=== PATIENT | male | born 1930 | race Caucasian/White ===

== ENCOUNTER 2016-05-01 17:30 | Inpatient (IN) | payer MEDICARE, OTHER ==
[~2016-05-01] VITALS: Ht 167.6 cm; Wt 71.7 kg
[2016-05-01] MEDS ORDERED: ONDANSETRON PF 4 MG/2 ML VIAL. IV ONE (18:00)
[2016-05-01] MEDS: FENTANYL PF 100 MCG/2 ML VIAL. IV PRN ×5 (18:10→23:42)
[2016-05-01] MEDS ORDERED: ACETAMINOPHEN 325 MG TABLET. PO PRN ×2 (18:15→18:45)
[2016-05-01] MEDS ORDERED: ONDANSETRON PF 4 MG/2 ML VIAL. IV PRN ×3 (18:15→20:30)
--- NOTE | 2016-05-01 18:15 | EKG ---
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
--- NOTE | 2016-05-01 18:15 | PHYS DOC ---
Past Medical History Past Medical History: Hypertension Additional Past Medical Histor: Prostate cancer Past Surgical History: Knee Replacement (left) Alcohol Use: None Drug Use: None Adult General Chief Complaint Chief Complaint: MECHANICAL FALL HPI HPI Patient is a 85 year old male who presents with with severe left hip pain after slip and fall on wet floor just prior to arrival, constant, achy, worse with movement. Has only left hip pain. Denies headache, neck pain, chest pain, back pain, abdominal pain, dyspnea, numbness, tingling, weakness, LOC. Last po 1300. Review of Systems Review of Systems Constitutional: Denies fever or chills [] Eyes: Denies change in visual acuity, redness, or eye pain [] HENT: Denies nasal congestion or sore throat [] Respiratory: Denies cough or shortness of breath [] Cardiovascular: No additional information not addressed in HPI [] GI: Denies abdominal pain, nausea, vomiting, bloody stools or diarrhea [] : Denies dysuria or hematuria [] Musculoskeletal: Denies back pain [] Integument: Denies rash or skin lesions [] Neurologic: Denies headache, focal weakness or sensory changes [] Endocrine: Denies polyuria or polydipsia [] Current Medications Current Medications Current Medications Medications (Trade) Dose Ordered Sig/Loly Start Time Stop Time Status Last Admin Dose Admin Fentanyl Citrate (Fentanyl 2ml Vial) 50 mcg PRN Q15MIN PRN 05/01/16 18:00 05/02/16 17:59 05/01/16 18:41 50 MCG Ondansetron HCl (Zofran) 4 mg 1X ONCE 05/01/16 18:00 05/01/16 18:01 DC 05/01/16 18:10 4 MG Allergies Allergies Allergies Coded Allergies Type Severity Reaction Last Updated Verified No Known Drug Allergies 05/01/16 No Physical Exam Physical Exam Constitutional: Well developed, well nourished, no acute distress, non-toxic appearance. [] HENT: Normocephalic, atraumatic, bilateral external ears normal, oropharynx moist, nose normal. [] Eyes: PERRLA, EOMI. [] Neck: Normal range of motion, no tenderness, supple. [] Cardiovascular:Heart rate regular rhythm [] Lungs & Thorax: Bilateral breath sounds clear to auscultation [] Abdomen: Bowel sounds normal, soft, no tenderness. [] Skin: Warm, dry, no erythema, no rash. [] Back: No tenderness, no CVA tenderness. [] Extremities: LLE with obvious swelling to left hip with slight ecchymosis to trochanter area; Hip ROM not tested due to pain and suspected fracture, knee full rom and nontender, ankle df/pf intact and nontender, toes df/pf intact and nontender; sensation intact to light touch; good dp and pt pulses equal bilaterally Neurologic: Alert and oriented X 3, normal motor function, normal sensory function, no focal deficits noted. [] Psychologic: Affect normal, judgement normal, mood normal. [] Current Patient Data Vital Signs Vital Signs Date Time Temp Pulse Resp B/P Pulse Ox O2 Delivery O2 Flow Rate FiO2 05/01/16 17:52 74 21 222/103 100 Room Air 05/01/16 17:30 97.8 97.8 EKG EKG EKG as interpreted by me as normal sinus rhythm, rate 65, no ST-T changes, normal intervals, no ectopy Radiology/Procedures Radiology/Procedures X-ray left hip and pelvis as interpreted by me with left intertrochanteric femur fracture with displacement, normal-appearing pelvis Chest xray as interpreted by me with no acute cardiopulmonary disease process Course & Med Decision Making Course & Med Decision Making Pertinent Labs and Imaging studies reviewed. (See chart for details) Has left hip fracture without other obvious injury or complaint. Was trauma alert due to suspected surgical injury; Dr. Andujar, trauma surgeon, was notified of isolated orthopedic injury. Discussed case with Dr. Moran, orthopedics, who will see him. Discussed case with Dr. Ruth, who will admit. Dragon Disclaimer Dragon Disclaimer This electronic medical record was generated, in whole or in part, using a voice recognition dictation system. Departure Departure Impression: Primary Impression: Closed left femoral fracture Disposition: ADMITTED INPATIENT Condition: STABLE Referrals: ANTOINETTE BABB MD (PCP) Problem Qualifiers Primary Impression: Closed left femoral fracture Encounter type: initial encounter Femur location: intertrochanteric Fracture alignment: displaced Qualified Code: S72.142A - Displaced intertrochanteric fracture of left femur, initial encounter for closed fracture Tatyana FARIAS MD May 01, 2016 18:15
--- NOTE | 2016-05-01 18:38 | PDOC1 ---
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 He was in the carli in the gym, got up, walked for steps and fell on the left side on the ground 2/2 slippery floor. denies loss of consciousness. EMS was called. XR showed left hip fx. independent, no fever, chills, sob, chest pain, N/V. still difficulty to urinate. Past Medical History Cardiovascular: HTN Renal/: Prostate Ca. Past Surgical History Past Surgical History: Total knee replacement Family History Family History: No Significant Social History Smoke: No ALCOHOL: none Drugs: None Current Problem List Problem List Problems Medical Problems: (1) Closed left femoral fracture Status: Acute (2) Femur fracture, left Status: Acute Current Medications Current Medications Current Medications Medications (Trade) Dose Ordered Sig/Loly Start Time Stop Time Status Last Admin Dose Admin Acetaminophen (Tylenol) 650 mg PRN Q4HRS PRN 05/01/16 18:15 05/02/16 18:14 Fentanyl Citrate (Fentanyl 2ml Vial) 50 mcg PRN Q2HR PRN 05/01/16 18:15 05/02/16 18:14 Ondansetron HCl (Zofran) 4 mg PRN Q8HRS PRN 05/01/16 18:15 05/02/16 18:14 Allergies Allergies Allergies Coded Allergies Type Severity Reaction Last Updated Verified No Known Drug Allergies 05/01/16 No ROS Review of System CONSTITUTIONAL: No fever or chills EYES: No recent changes SKIN: No rash or itching CARDIOVASCULAR: No chest pain, syncope, palpitations, or edema RESPIRATORY: No SOB or cough GASTROINTESTINAL: No nausea, vomiting or abdominal pain NEUROLOGICAL: No headaches or weakness ENDOCRINE: No cold or heat intolerance GENITOURINARY: No urgency or frequency of urination MUSCULOSKELETAL: No back pain or joint pain LYMPHATICS: No enlarged lymph nodes PSYCHIATRIC: No anxiety or depression Physical Exam Physical Exam GEN.: No apparent distress. Alert and oriented. HEENT: Head is normocephalic, atraumatic NECK: Supple. LUNGS: Clear to auscultation. HEART: RRR, S1, S2 present. Peripheral pulses intact ABDOMEN: Soft, nontender. Positive bowel sounds. EXTREMITIES: Without any cyanosis. left lower ext outwards rotated. + pedal pulse NEUROLOGIC: Normal speech, normal tone PSYCHIATRIC: Normal affect, normal mood. SKIN: No ulcerations Vitals Vitals Vital Signs Date Time Temp Pulse Resp B/P Pulse Ox O2 Delivery O2 Flow Rate FiO2 05/01/16 18:10 18 Room Air 05/01/16 17:30 97.8 60 195/104 99 97.8 VTE Prophylaxis Ordered VTE Prophylaxis Devices: Yes VTE Pharmacological Prophylaxi: No Assessment/Plan Assessment/Plan 1. traumatic left hip fx post fall 2. htn 3. recent transition nurse post RT plan: 1. labs pending 2. ortho consult, sx tonight 3. need home meds 4. check vitd SW for rehab ptot pain control pt has low risk to develop post op complication, will do it tonight. ELENITA SARAH MD May 01, 2016 18:38
--- NOTE | 2016-05-01 18:57 | ACF ---
Admission Forms Criteria MUSCULOSKELETAL DISEASE GRG Clinical Indications for Admission to Inpatient Care (Place 'X' for any and all applicable criteria): Hospital admission is needed for appropriate care of the patient because of ANY ONE of the following: [X]I. Fracture, dislocation, or other musculoskeletal injury requiring inpatient care(medical) as indicated by ANY ONE of the following(4)(5)(6)(7) [ ]a) Vertebral fracture requiring observation for instability or neurologic compromise (8) [ ]b) Compartment syndrome (proven or cannot be ruled out during observation level of care) (9) [ ]c) Limb-threatening injury [ ]d) Major injury requiring inpatient stabilization such as traction initiation or external fixation before internal fixation or closure of complex or open fracture [X]e) Major injury requiring inpatient treatment after emergency or observation level care (as appropriate) [ ]f) Severe pain requiring acute inpatient management [ ]II. Newly diagnosed or suspected bone, joint, or orthopedic device infection (e.g., osteomyelitis, septic arthritis) needing ANY ONE of the following(1)(2)(3) [ ]a) IV antibiotics that cannot be initiated in other than inpatient setting (e.g., patient too unstable or home infusion not available) [ ]b) Device removal or replacement [ ]c) Bone or soft tissue debridement [ ]d) Joint drainage (drain placement or repetitive aspirations) [ ]III. Severe rheumatologic disease (e.g., systemic lupus erythematosus, rheumatoid arthritis) with complications or comorbidities (Also use Optimal Recovery Care Criteria or General Recovery Criteria as appropriate on the basis of predominant condition), including ANY ONE of the following(10 )(11)(12)(13) [ ]a) Severe infection (e.g., [employer] infection, sepsis) (14) [ ]b) Respiratory complications, including ANY ONE of the following: [ ]i) Pleural effusion with respiratory compromise [ ]ii) Pulmonary hypertension with congestive failure [ ]iii) Respiratory failure [ ]iv) Pulmonary hemorrhage (15) [ ]c) Hematologic disease, including ANY ONE of the following: [ ]i) Coagulopathy with bleeding [ ]ii) Thrombosis with hypercoagulable state [ ]iii) Thrombotic thrombocytopenic purpura [ ]d) Cerebritis with seizures, psychosis, or other severe abnormalities [ ]e) Vertebral destruction with monitoring needed for cervical myelopathy& possible respiratory compromise [ ]f) Exacerbation that requires inpatient treatment (e.g., intravenous immunosuppression) (16) [ ]g) Acute renal failure [ ]IV. Severe vasculitis with complications or comorbidities (Also use Optimal Recovery Care Criteria or General Recovery Criteria as appropriate on the basis of predominant condition), including ANY ONE of the following(11)(12)(17)(18)(19)(20) [ ]a) [employer]ER vasculitis with seizures, psychosis, or other severe abnormalities (22) [ ]b) Renal failure (16) [ ]c) Pulmonary hemorrhage (15) [ ]d) Cerebral infarction [ ]e) Gastrointestinal ischemia [ ]f) Gangrene or threatened amputation [ ]g) Exacerbation that requires inpatient treatment (e.g., intravenous immunosuppression) (19)(21) [ ]V. Severe myopathy as indicated by ANY ONE of the following (28)(29) [ ]a) New onset of airway compromise or inability to swallow [ ]b) Respiratory deterioration with observation needed for impending respiratory failure [ ]c) Exacerbation that requires inpatient treatment (e.g., intravenous immunosuppression) [ ]. Severe gout (crystal arthropathy) as indicated by ANY ONE of the following (23)(24) [ ]a) Severe pain requiring acute inpatient management [ ]b) Exacerbation that requires inpatient treatment (e.g., intravenous treatment) [ ]VII.Rhabdomyolysis and ANY ONE of the following (25)(26)(27) [ ]a) Acute renal failure [ ]b) Need for intravenous hydration after emergency or observation level care (as appropriate) [ ]c) Inability to maintain oral hydration [ ]d) Change in mental status [ ]e) Electrolyte abnormality that remains after emergency or observation level care (as appropriate) [ ]VIII Post amputation complication, as indicated by ANY ONE of the following [ ]a) Infection [ ]b) Dehiscence [ ]c) Myodesis failure [ ]IX. Severe pain requiring acute inpatient management as indicated by ALL of the following (30)(31)(32) [ ]a) Continuous or frequent (e.g., every 2 to 4 hrs) parenteral analgesics required [A] [ ]b) Rapid improvement expected from treatment or acute intervention ( e.g., surgery, anesthesia procedure[B] [ ]X. Musculoskeletal Disease and ALL of the following: [ ]a) Symptom or finding for which emergency and observation care have failed or are not considered appropriate (Use General Criteria: Observation Care as appropriate) [ ]b) Presence of ANY ONE of the following [ ]i) A General Admission Criteria [ ]ii) A Pediatric General Admission Criteria The original [facility] content created by [facility] has been revised. The portions of the content which have been revised are identified through the use of italic text or in bold, and [facility] has neither reviewed nor approved the modified material. All other unmodified content is copyright [facility]. Please see references footnoted in the original [facility] edition 2016 Admission Criteria Met?: Yes BEE GARAY May 01, 2016 18:57
[2016-05-01] MEDS ORDERED: PROPOFOL 20 ML IV ONE (19:01)
[2016-05-01] MEDS ORDERED: PHENYLEPHRINE in 0.9% NACL PF 1 MG/10 ML DISP.SYRIN. IV ONE (19:02)
[2016-05-01] MEDS ORDERED: ONDANSETRON PF 4 MG/2 ML VIAL. ONE (19:02)
[2016-05-01] MEDS ORDERED: LIDOCAINE 2% 100 MG/5 ML DISP.SYRIN. ONE (19:02)
[2016-05-01] MEDS ORDERED: EPHEDRINE PF IN SALINE 50 MG/5 ML DISP.SYRIN. IV ONE (19:02)
[2016-05-01] MEDS ORDERED: DEXAMETHASONE SOD PHOS 20 MG/5 ML VIAL. ONE (19:02)
[2016-05-01 19:03] LABS: BASO % 1 % (0-3); EOS % 1 % (0-3); HEMATOCRIT 33.1 % (39.0-53.0); HEMOGLOBIN 11.5 g/dL (13.0-17.5); LYMPH # 1.3 x10^3/uL (1.0-4.8); LYMPH % 19 % (24-48); MEAN CORPUSCULAR HEMOGLOBIN 34 pg (25-35); MEAN CORPUSCULAR HGB CONC 35 g/dL (31-37); MEAN CORPUSCULAR VOLUME 99 fL (79-100); MONO % 12 % (0-9); NEUT % 68 % (31-73); PLATELET COUNT 166 x10^3/uL (140-400); RED BLOOD COUNT 3.36 x10^6/uL (4.30-5.70); RED CELL DISTRIBUTION WIDTH 13.3 % (11.5-14.5)
[2016-05-01 19:20] LABS: CALCIUM 8.4 mg/dL (8.5-10.1); CREATININE 1.1 mg/dL (0.7-1.3); GFR 63.9; POTASSIUM 4.5 mmol/L (3.5-5.1)
[2016-05-01 19:45] VITALS: BP 171/85
[2016-05-01] MEDS ORDERED: BRIN8DRO OP (19:51)
[2016-05-01] MEDS ORDERED: ASPI81TA2 PO (19:51)
[2016-05-01] MEDS ORDERED: SENN8.6T99 PO (19:51)
[2016-05-01] MEDS ORDERED: LISI-334 AD (19:51)
[2016-05-01] MEDS ORDERED: ESCI10TA PO (19:51)
[2016-05-01] MEDS ORDERED: ATOR40TA59 PO (19:51)
[2016-05-01] MEDS ORDERED: POLY17PO5 PO (19:51)
[2016-05-01] MEDS ORDERED: MIRA50TA PO (19:51)
[2016-05-01] MEDS ORDERED: TIMO5DRO26 OP (19:51)
[2016-05-01] MEDS ORDERED: IV RINGERS,LACTATED 1000ML 1,000 ML IV SCH (20:20)
[2016-05-01] MEDS ORDERED: LIDOCAINE 1% 1 ML SYRINGE. ID PRN (20:30)
[2016-05-01] MEDS ORDERED: HYDROMORPHONE 2 MG/ML VIAL. IV PRN (20:30)
[2016-05-01] MEDS ORDERED: PROCHLORPERAZINE 10 MG/2 ML VIAL. IV PRN (20:30)
[2016-05-01] MEDS ORDERED: FENTANYL PF 100 MCG/2 ML VIAL. IV PRN ×2 (20:30)
[2016-05-01] MEDS ORDERED: ZOLPIDEM 5 MG TABLET. PO PRN (21:15)
[2016-05-01] MEDS ORDERED: CEFAZOLIN 2GM PREMIX 50 ML IV ONE (21:30)
[2016-05-01] MEDS ORDERED: FENTANYL PF 100 MCG/2 ML VIAL. ONE ×2 (21:37→22:25)
[2016-05-01] MEDS ORDERED: SEVOFLURANE 61 TO 120 MINUTES. IH ONE (22:50)
[2016-05-01] MEDS: MORPHINE SULFATE 2 MG/ML DISP.SYRIN. IV PRN (23:52)
[2016-05-02] VITALS (12 sets, daily range): BP systolic 80–121; BP diastolic 49–81
[2016-05-02] MEDS: MORPHINE SULFATE 2 MG/ML DISP.SYRIN. IV PRN (00:08)
--- NOTE | 2016-05-02 04:00 | CONS ---
DATE OF CONSULTATION: 05/01/2016 REQUESTING PHYSICIAN: Dr. Neal Coelho. REASON FOR CONSULTATION: Left hip fracture. HISTORY OF PRESENT ILLNESS: The patient is an 85-year-old male who was at the gym . He was walking down the steps and slipped on a wet slippery floor, landing on his left side, was unable to bear weight or get up due to his left hip pain. He denies any head injury or loss of consciousness, was brought into [facility] by ambulance, found to have a left hip fracture. PAST MEDICAL HISTORY: Significant for prostate cancer and hypertension. PAST SURGICAL HISTORY: Significant for a total knee arthroplasty on the left. FAMILY HISTORY: Denies any significant family history. SOCIAL HISTORY: He is accompanied by some family members today. Previously, independently ambulatory. Denies smoking, alcohol or drug use. REVIEW OF SYSTEMS: Significant for a course of radiation therapy for his prostate cancer, which he just finished. He is also just recovering from a recent total knee arthroplasty and still going through some of the rehabilitation, but is otherwise doing well. He denies any recent fever, chills, chest pain, shortness of breath. He does have some difficulty urinating. Denies any change in bowel or bladder habits, abdominal pain, nausea, vomiting, shortness of breath, headache, visual changes, focal weakness, numbness, tingling in the extremities. PHYSICAL EXAMINATION: GENERAL: This is a pleasant, cooperative 85-year-old male, height 66 inches, weight 165 pounds. HEENT: Atraumatic, normocephalic. EXTREMITIES: He has good range of motion of both shoulders, elbows and wrists bilaterally with normal motion, alignment and stability. Examination of the lower extremities revealed the left lower extremity to be shortened and internally rotated and very painful with any palpation or motion. Has a well-healed incision from a total knee arthroplasty that appears to be stable, well aligned. Normal examination of the contralateral right hip and knee, bilateral ankles with overall intact motor function, distal pulses, sensation, reflexes, skin in both lower extremities throughout. IMAGING: X-rays show a comminuted intertrochanteric hip fracture with some subtrochanteric extension with involvement of the lesser trochanter, well maintained joint spaces otherwise. IMPRESSION: 1. Left intertrochanteric hip fracture. 2. History of radiation therapy for prostate cancer. 3. Recent total knee arthroplasty. TREATMENT PLAN: I had gone over with the patient and family, the usual operative treatment of the hip fracture and immobility related complications of nonoperative treatment, possibility of infection, nonhealing, nerve or blood vessel damage, medical or other anesthetic complications among others, associated with surgical treatment. All his questions were answered. He wants to proceed with surgical evaluation and treatment, which can actually occurred this evening based on his n.p.o. status, pending medical evaluation and presurgical clearance by Dr. Ruth who is going to evaluate him tonight in the Emergency Department as well. CRISTOBAL THOMPSON MD DR: ALTHEA/shawnee JOB#: [id number] / [id number]
--- NOTE | 2016-05-02 06:08 | PDOC ---
BRIEF OPERATIVE NOTE Date: May 01, 2016 Pre-Op Diagnosis left it hip fx Post-Op Diagnosis same Procedure Performed ORIF left it hip fx Surgeon Dean Anesthesia Type: General Blood Loss 250cc Findings above Complications none CRISTOBAL THOMPSON MD May 02, 2016 06:08
[2016-05-02 06:27] LABS: BASO % 0 % (0-3); EOS % 0 % (0-3); HEMATOCRIT 25.6 % (39.0-53.0); HEMOGLOBIN 8.8 g/dL (13.0-17.5); LYMPH # 0.5 x10^3/uL (1.0-4.8); LYMPH % 6 % (24-48); MEAN CORPUSCULAR HEMOGLOBIN 34 pg (25-35); MEAN CORPUSCULAR HGB CONC 34 g/dL (31-37); MEAN CORPUSCULAR VOLUME 100 fL (79-100); MONO % 11 % (0-9); NEUT % 82 % (31-73); PLATELET COUNT 126 x10^3/uL (140-400); RED BLOOD COUNT 2.56 x10^6/uL (4.30-5.70); RED CELL DISTRIBUTION WIDTH 13.4 % (11.5-14.5); WHITE BLOOD COUNT 8.1 x10^3/uL (4.0-11.0)
[2016-05-02 06:36] LABS: CALCIUM 8.9 mg/dL (8.5-10.1); CREATININE 1.2 mg/dL (0.7-1.3); GFR 57.8; POTASSIUM 3.8 mmol/L (3.5-5.1)
--- NOTE | 2016-05-02 08:15 | RAD ---
Pelvis with left hip, 3 views, 05/01/2016: History: Fall, hip pain There is a comminuted intertrochanteric fracture of the left hip. There is moderate medial displacement of a fracture fragment involving the lesser trochanter. The femoral head is seated within the acetabulum. The hip joints are well-preserved with only mild marginal spurring. No other fracture is identified. IMPRESSION: Comminuted intertrochanteric fracture of the left hip.
--- NOTE | 2016-05-02 08:16 | RAD ---
Portable chest, 05/01/2016: History: Trauma, preop evaluation for hip fracture The heart size and pulmonary vascularity are within normal limits. There is mild tortuosity of the thoracic aorta. No pulmonary infiltrates are seen. There is no evidence of pleural fluid or pneumothorax. The bony structures are demineralized. There are mild degenerative changes in the spine with a mild right convexity thoracic scoliosis. IMPRESSION: No acute cardiopulmonary abnormality is detected.
[2016-05-02] MEDS: LISINOPRIL 20 MG TABLET PO SCH (09:00)
--- NOTE | 2016-05-02 09:12 | OP ---
DATE OF SURGERY: 05/01/2016 PREOPERATIVE DIAGNOSIS: Displaced comminuted intertrochanteric left hip fracture. POSTOPERATIVE DIAGNOSIS: Displaced comminuted intertrochanteric left hip fracture. PROCEDURE: Operative reduction internal fixation of left intertrochanteric hip fracture with intramedullary fixation (InterTan nail). SURGEON: Dayne Moran MD. ANESTHESIA: General endotracheal. ESTIMATED BLOOD LOSS: 250 mL COMPLICATIONS: None. OPERATIVE INDICATIONS: The patient is an 85-year-old male who sustained a left intertrochanteric hip fracture in a fall at the sauna in the gym. I had gone over with the patient and family the risks, benefits, postoperative course of the planned operative treatment, the nonoperative treatment options and associated complications, possibility of nonhealing, nerve or blood vessel damage, medical or other anesthetic complications among others with the operative treatment. All the patient's and family's questions were answered, consent was obtained and the patient agrees to proceed with operative evaluation and treatment. OPERATIVE TECHNIQUE: The patient was identified, procedure verified, patient placed in the supine position on the [place] fracture table after adequate amounts of general endotracheal anesthesia were administered. Left leg was placed in the traction boot and in traction the right leg was placed in the well leg restrepo. All bony prominences were well padded and reduction was checked under multiple fluoroscopic views with significant traction required to perform the reduction maneuver. After adequate reduction was verified, an incision was made just proximal to the greater trochanteric entry point and an entry awl was placed along with a long guidewire reaming carried up to a size 14, size 11.5 x 130 short InterTan nail was then placed. A guidewire was advanced up the center of the femoral neck under multiple fluoroscopic views and a 110-mm lag screw was then placed after the cortex that had been breached from the area where it had been previously drilled and the cortex had been breached for the compression screw. Compression screw was then placed, approximately 10 mm of compression were obtained and excellent near anatomic alignment was noted. Distal locking screw was placed as well careful to avoid overly engaging the cortex with the larger threads near the head of the screw laterally. Excellent rotational control was obtained and multiple fluoroscopic views used to confirm fracture reduction and hardware placement. Thorough irrigation carried out with normal saline solution. Fascia was closed with #1 Vicryl suture. Subcutaneous closure with buried Vicryl sutures, skin closure with yelena. Sterile dressings were applied. The patient was extubated and transferred to postop holding in stable condition having tolerated the procedure well. DAYNE MORAN MD DR: ALTHEA/shawnee JOB#: [id number] / [id number] ANTOINETTE Jewell MD
[2016-05-02] MEDS: ASPIRIN 81 MG TAB.CHEW PO SCH (09:26)
[2016-05-02] MEDS: OXYCODONE/APAP 5/325 TABLET. PO PRN ×2 (09:29→19:43)
[2016-05-02] MEDS: SENNOSIDES 8.6 MG TABLET PO SCH (09:29)
[2016-05-02] MEDS: ESCITALOPRAM 10 MG TABLET. PO SCH (09:29)
[2016-05-02] MEDS: FERROUS SULFATE 325 MG TABLET PO SCH (09:29)
[2016-05-02] MEDS: POLYETHYLENE GLYCOL 3350 17 GM PACKET. PO SCH (09:30)
--- NOTE | 2016-05-02 11:43 | PDOC2 ---
BRENDON HYMAN Nico SALES OPERATIONS DIRECTOR 05/02/16 1143: CONSULT Date of Consult Date of Consult DATE: 05/02/16 TIME: 11:40 Reason for Consult Reason for Consult: trauma Referring Physician Referring Physician: ER Identification/Chief Complaint Chief Complaint leg pain Source Source: Chart review, Patient History of Present Illness Reason for Visit: fell after sitting in sauna at gym, hip fracture--ortho has repaired. Denies head injury or LOC. No abdominal injury during fall Past Medical History Cardiovascular: HTN Renal/: Prostate Ca. Past Surgical History Past Surgical History: Total knee replacement Family History Family History: No Significant Social History No ALCOHOL: none Drugs: None Current Problem List Problem List Problems Medical Problems: (1) Closed left femoral fracture Status: Acute (2) Femur fracture, left Status: Acute Current Medications Current Medications Current Medications Fentanyl Citrate (Fentanyl 2ml Vial) 50 mcg PRN Q15MIN PRN IV PAIN GREATER THAN 3/10 Last administered on 05/01/16 18:41; Start 05/01/16 at 18:00; Stop 12/09 at 17:59 Ondansetron HCl (Zofran) 4 mg 1X ONCE IV Last administered on 05/01/16 18:10; Start 05/01/16 at 18:00; Stop 05/01/16 at 18:01; Status DC Ondansetron HCl (Zofran) 4 mg PRN Q8HRS PRN IV NAUSEA/VOMITING Last administered on 05/01/16 21:04; Start 05/01/16 at 18:15; Stop 05/02/16 at 18:14 Fentanyl Citrate (Fentanyl 2ml Vial) 50 mcg PRN Q2HR PRN IV PAIN Last administered on 05/01/16 23:42; Start 05/01/16 at 18:15; Stop 05/02/16 at 18:14 Acetaminophen (Tylenol) 650 mg PRN Q4HRS PRN PO FEVER; Start 05/01/16 at 18:15; Stop 05/02/16 at 18:14 Acetaminophen (Tylenol) 650 mg PRN Q6HRS PRN PO FEVER; Start 05/01/16 at 18:45 Ondansetron HCl (Zofran) 4 mg PRN Q6HRS PRN IV NAUSEA; Start 05/01/16 at 18:45 Oxycodone/ Acetaminophen 1 tab 1 tab PRN Q6HRS PRN PO PAIN Last administered on 05/02/16 09:29; Start 05/01/16 at 18:45 Propofol (Diprivan) 20 ml @ As Directed STK-MED ONCE IV ; Start 05/01/16 at 19:01 ; Stop 05/01/16 at 19:02; Status DC Lidocaine HCl 100 mg STK-MED ONCE .ROUTE ; Start 05/01/16 at 19:02; Stop 05/01/16 at 19:03; Status DC Phenylephrine HCl 1 mg STK-MED ONCE IV ; Start 05/01/16 at 19:02; Stop 05/01/16 at 19:03; Status DC Ephedrine Sulfate 50 mg STK-MED ONCE IV ; Start 05/01/16 at 19:02; Stop 05/01/16 at 19:03; Status DC Dexamethasone Sodium Phosphate (Decadron) 20 mg STK-MED ONCE .ROUTE ; Start 05/01 at 19:02; Stop 05/01/16 at 19:03; Status DC Ondansetron HCl (Zofran) 4 mg STK-MED ONCE .ROUTE ; Start 05/01/16 at 19:02; Stop 05/01/16 at 19:03; Status DC Ondansetron HCl (Zofran) 4 mg PRN Q6HRS PRN IV Nausea; Start 05/01/16 at 20:30; Stop 05/02/16 at 20:29 Fentanyl Citrate (Fentanyl 2ml Vial) 25 mcg PRN Q5MIN PRN IV MILD PAIN; Start 05/01/16 at 20:30; Stop 05/02/16 at 20:29 Fentanyl Citrate (Fentanyl 2ml Vial) 50 mcg PRN Q5MIN PRN IV MODERATE PAIN; Start 05/01/16 at 20:30; Stop 05/02/16 at 20:29 Morphine Sulfate 1 mg 1 mg PRN Q10MIN PRN IV SEVERE PAIN Last administered on 00:08; Start 05/01/16 at 20:30; Stop 05/02/16 at 20:29 Lactated Ringer's (Iv Lactated Ringers) 1,000 ml @ 0 mls/hr Q0M IV ; Start 05/01 at 20:20; Stop 05/02/16 at 08:19; Status DC Lidocaine HCl 2 ml 1X PRN PRN ID IV START; Start 05/01/16 at 20:30; Stop at 20:29 Hydromorphone HCl (Dilaudid) 0.5 mg PRN Q10MIN PRN IV SEV PAIN,Second choice Last administered on 05/01/16 23:59; Start 05/01/16 at 20:30; Stop 05/02/16 at 20 :29 Prochlorperazine Edisylate (Compazine) 5 mg PACU PRN PRN IV NAUSEA Last administered on 05/01/16 23:40; Start 05/01/16 at 20:30; Stop 05/02/16 at 20:29 Zolpidem Tartrate 5 mg 5 mg PRN QHS PRN PO INSOMNIA; Start 05/01/16 at 21:15; Stop 05/01/16 at 21:20; Status DC Cefazolin Sodium/ Dextrose (Ancef 2gm Premix) 50 ml @ As Directed STK-MED ONCE IV ; Start 05/01/16 at 21:30; Stop 05/01/16 at 21:31; Status DC Fentanyl Citrate (Fentanyl 2ml Vial) 100 mcg STK-MED ONCE .ROUTE ; Start at 21:37; Stop 05/01/16 at 21:38; Status DC Fentanyl Citrate (Fentanyl 2ml Vial) 100 mcg STK-MED ONCE .ROUTE ; Start at 22:25; Stop 05/01/16 at 22:26; Status DC Sevoflurane (Ultane) 60 ml STK-MED ONCE IH ; Start 05/01/16 at 22:50; Stop at 22:51; Status DC Aspirin (Children'S Aspirin) 81 mg DAILY PO Last administered on 05/02/16 09: 26; Start 05/02/16 at 09:00 Atorvastatin Calcium (Lipitor) 40 mg HS PO ; Start 05/02/16 at 21:00 Escitalopram Oxalate (Lexapro) 10 mg DAILY PO Last administered on 05/02/16 09 :29; Start 05/02/16 at 09:00 Lisinopril (Prinivil) 20 mg DAILY PO ; Start 05/02/16 at 09:00 Polyethylene Glycol (miraLAX PACKET) 17 gm DAILY PO Last administered on 09:30; Start 05/02/16 at 09:00 Sennosides (Senna) 8.6 mg DAILY PO Last administered on 05/02/16 09:29; Start 05/02/16 at 09:00 Acetaminophen/ Hydrocodone Bitart (Lortab 5/325) 1 tab PRN Q4HRS PRN PO PAIN; Start 05/02/16 at 08:00 Ferrous Sulfate (Feosol) 325 mg DAILYWBKFT PO Last administered on 05/02/16 09 :29; Start 05/02/16 at 09:00 Active Scripts Active Reported Betimol (Timolol) 5 Ml Drops 5 Ml OP Simbrinza 1%-0.2% Eye Drops (Brinzolamide/Brimonid Tart) 8 Ml Drops.susp 8 Ml OP Senokot (Sennosides) 8.6 Mg Tablet 8.6 Mg PO Miralax (Polyethylene Glycol 3350) 17 Gm Powd.pack 1 Pkt PO DAILY Lisinopril 20 Mg Tablet 20 Mg AD DAILY Escitalopram Oxalate 10 Mg Tablet 10 Mg PO DAILY Atorvastatin Calcium 40 Mg Tablet 40 Mg PO HS Myrbetriq (Mirabegron) 50 Mg Tab.er.24h 50 Mg PO Aspirin 81 Mg Tab.chew 81 Mg PO Allergies Allergies: Coded Allergies: No Known Drug Allergies (Unverified , 05/01/16) ROS General: No: Chills, Other (fevers) PSYCHOLOGICAL ROS: No: Anxiety Eyes: No Blurry vision, No Double vision HEENT: YES: Epistaxis, Sore Throat, No: Heacaches, Tinnitus Hematological and Lymphatic: No: Bleeding Problems, Blood Clots Respiratory: No: Cough, Shortness of breath Cardiovascular: No Chest Pain, No Palpitations Gastrointestinal: No Abdominal Pain, No Nausea, No Vomiting Genitourinary: No Dysuria, No Hematuria Musculoskeletal: Yes Joint Pain, Yes Joint Swelling Neurological: No Confusion, No Numbness/Tingling Skin: No Pruritus, No Rash Physical Exam General: Alert, Oriented X3, Cooperative, No acute distress HEENT: PERRLA, Mucous membr. moist/pink Lungs: Clear to auscultation, Normal air movement Heart: Regular rate, Normal S1, Normal S2, No murmurs Abdomen: Normal bowel sounds, Soft, No hepatosplenomegaly Extremities: No edema, Other (left hip with dressing in place) Skin: No rashes, No breakdown Neuro: Normal speech, Sensation intact Psych/Mental Status: Mental status NL, Mood NL MUSCULOSKELETAL: No deformity, No swelling Vitals VITALS Vital Signs Date Time Temp Pulse Resp B/P Pulse Ox O2 Delivery O2 Flow Rate FiO2 05/02/16 11:34 97.9 94 18 103/60 93 Nasal Cannula 2.0 97.9 Labs Labs Laboratory Tests Test 05/01/16 18:15 05/02/16 06:05 White Blood Count 7.0x10^3/uL (4.0-11.0) 8.1x10^3/uL (4.0-11.0) Red Blood Count 3.36x10^6/uL (4.30-5.70) 2.56x10^6/uL (4.30-5.70) Hemoglobin 11.5g/dL (13.0-17.5) 8.8g/dL (13.0-17.5) Hematocrit 33.1% (39.0-53.0) 25.6% (39.0-53.0) Mean Corpuscular Volume 99fL (79-100) 100fL (79-100) Mean Corpuscular Hemoglobin 34pg (25-35) 34pg (25-35) Mean Corpuscular Hemoglobin Concent 35g/dL (31-37) 34g/dL (31-37) Red Cell Distribution Width 13.3% (11.5-14.5) 13.4% (11.5-14.5) Platelet Count 166x10^3/uL (140-400) 126x10^3/uL (140-400) Neutrophils (%) (Auto) 68% (31-73) 82% (31-73) Lymphocytes (%) (Auto) 19% (24-48) 6% (24-48) Monocytes (%) (Auto) 12% (0-9) 11% (0-9) Eosinophils (%) (Auto) 1% (0-3) 0% (0-3) Basophils (%) (Auto) 1% (0-3) 0% (0-3) Neutrophils # (Auto) 4.7x10^3uL (1.8-7.7) 6.6x10^3uL (1.8-7.7) Lymphocytes # (Auto) 1.3x10^3/uL (1.0-4.8) 0.5x10^3/uL (1.0-4.8) Monocytes # (Auto) 0.8x10^3/uL (0.0-1.1) 0.9x10^3/uL (0.0-1.1) Eosinophils # (Auto) 0.1x10^3/uL (0.0-0.7) 0.0x10^3/uL (0.0-0.7) Basophils # (Auto) 0.0x10^3/uL (0.0-0.2) 0.0x10^3/uL (0.0-0.2) Sodium Level 144mmol/L (136-145) 143mmol/L (136-145) Potassium Level 4.5mmol/L (3.5-5.1) 3.8mmol/L (3.5-5.1) Chloride Level 103mmol/L (98-107) 106mmol/L (98-107) Carbon Dioxide Level 28mmol/L (21-32) 30mmol/L (21-32) Anion Gap 13 (6-14) 7 (6-14) Blood Urea Nitrogen 28mg/dL (8-26) 30mg/dL (8-26) Creatinine 1.1mg/dL (0.7-1.3) 1.2mg/dL (0.7-1.3) Estimated GFR (Cockcroft-Gault) 63.9 57.8 Glucose Level 135mg/dL (70-99) 174mg/dL (70-99) Calcium Level 8.4mg/dL (8.5-10.1) 8.9mg/dL (8.5-10.1) Laboratory Tests Test 05/01/16 18:15 05/02/16 06:05 White Blood Count 7.0x10^3/uL (4.0-11.0) 8.1x10^3/uL (4.0-11.0) Red Blood Count 3.36x10^6/uL (4.30-5.70) 2.56x10^6/uL (4.30-5.70) Hemoglobin 11.5g/dL (13.0-17.5) 8.8g/dL (13.0-17.5) Hematocrit 33.1% (39.0-53.0) 25.6% (39.0-53.0) Mean Corpuscular Volume 99fL (79-100) 100fL (79-100) Mean Corpuscular Hemoglobin 34pg (25-35) 34pg (25-35) Mean Corpuscular Hemoglobin Concent 35g/dL (31-37) 34g/dL (31-37) Red Cell Distribution Width 13.3% (11.5-14.5) 13.4% (11.5-14.5) Platelet Count 166x10^3/uL (140-400) 126x10^3/uL (140-400) Neutrophils (%) (Auto) 68% (31-73) 82% (31-73) Lymphocytes (%) (Auto) 19% (24-48) 6% (24-48) Monocytes (%) (Auto) 12% (0-9) 11% (0-9) Eosinophils (%) (Auto) 1% (0-3) 0% (0-3) Basophils (%) (Auto) 1% (0-3) 0% (0-3) Neutrophils # (Auto) 4.7x10^3uL (1.8-7.7) 6.6x10^3uL (1.8-7.7) Lymphocytes # (Auto) 1.3x10^3/uL (1.0-4.8) 0.5x10^3/uL (1.0-4.8) Monocytes # (Auto) 0.8x10^3/uL (0.0-1.1) 0.9x10^3/uL (0.0-1.1) Eosinophils # (Auto) 0.1x10^3/uL (0.0-0.7) 0.0x10^3/uL (0.0-0.7) Basophils # (Auto) 0.0x10^3/uL (0.0-0.2) 0.0x10^3/uL (0.0-0.2) Sodium Level 144mmol/L (136-145) 143mmol/L (136-145) Potassium Level 4.5mmol/L (3.5-5.1) 3.8mmol/L (3.5-5.1) Chloride Level 103mmol/L (98-107) 106mmol/L (98-107) Carbon Dioxide Level 28mmol/L (21-32) 30mmol/L (21-32) Anion Gap 13 (6-14) 7 (6-14) Blood Urea Nitrogen 28mg/dL (8-26) 30mg/dL (8-26) Creatinine 1.1mg/dL (0.7-1.3) 1.2mg/dL (0.7-1.3) Estimated GFR (Cockcroft-Gault) 63.9 57.8 Glucose Level 135mg/dL (70-99) 174mg/dL (70-99) Calcium Level 8.4mg/dL (8.5-10.1) 8.9mg/dL (8.5-10.1) Assessment/Plan Assessment/Plan trauma, fall, hip fracture--ortho managing no surgical needs, will sign off STANFORD NEGRETE MD 05/02/16 1257: CONSULT Allergies Allergies: Coded Allergies: No Known Drug Allergies (Unverified , 05/01/16) Assessment/Plan Assessment/Plan Patient seen and examined by me. Denies pain other then right hip. Benign abd. Agree with Fern's assessment and plan. BRENDON HYMAN APRN May 02, 2016 11:43 STANFORD NEGRETE MD May 02, 2016 12:57
[2016-05-02] MEDS: FENTANYL PF 100 MCG/2 ML VIAL. IV PRN ×2 (12:12→21:00)
--- NOTE | 2016-05-02 12:55 | PDOC ---
PROGRESS NOTES Chief Complaint Chief Complaint 1. traumatic left hip fx post fall 2. 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 acute anemia , expected post sx plan: 1. post ORIF for left hip fx on 05/01 night 2. fu with ortho 3. need home meds 4. check vitd SW for rehab ptot pain control add iron po defer DVT ppx to ortho History of Present Illness History of Present Illness hb 8.8 feels ok post op Vitals Vitals Vital Signs Date Time Temp Pulse Resp B/P Pulse Ox O2 Delivery O2 Flow Rate FiO2 05/02/16 12:12 93 Nasal Cannula 2.0 05/02/16 11:34 97.9 94 18 103/60 97.9 Physical Exam General: Alert, Oriented X3, Cooperative, No acute distress Heart: Regular rate, Normal S1, Normal S2, No murmurs Abdomen: Normal bowel sounds, Soft, No hepatosplenomegaly Extremities: No edema, Other (left hip with dressing in place) Skin: No rashes, No breakdown Labs LABS Laboratory Tests Test 05/01/16 18:15 05/02/16 06:05 White Blood Count 7.0x10^3/uL (4.0-11.0) 8.1x10^3/uL (4.0-11.0) Red Blood Count 3.36x10^6/uL (4.30-5.70) 2.56x10^6/uL (4.30-5.70) Hemoglobin 11.5g/dL (13.0-17.5) 8.8g/dL (13.0-17.5) Hematocrit 33.1% (39.0-53.0) 25.6% (39.0-53.0) Mean Corpuscular Volume 99fL (79-100) 100fL (79-100) Mean Corpuscular Hemoglobin 34pg (25-35) 34pg (25-35) Mean Corpuscular Hemoglobin Concent 35g/dL (31-37) 34g/dL (31-37) Red Cell Distribution Width 13.3% (11.5-14.5) 13.4% (11.5-14.5) Platelet Count 166x10^3/uL (140-400) 126x10^3/uL (140-400) Neutrophils (%) (Auto) 68% (31-73) 82% (31-73) Lymphocytes (%) (Auto) 19% (24-48) 6% (24-48) Monocytes (%) (Auto) 12% (0-9) 11% (0-9) Eosinophils (%) (Auto) 1% (0-3) 0% (0-3) Basophils (%) (Auto) 1% (0-3) 0% (0-3) Neutrophils # (Auto) 4.7x10^3uL (1.8-7.7) 6.6x10^3uL (1.8-7.7) Lymphocytes # (Auto) 1.3x10^3/uL (1.0-4.8) 0.5x10^3/uL (1.0-4.8) Monocytes # (Auto) 0.8x10^3/uL (0.0-1.1) 0.9x10^3/uL (0.0-1.1) Eosinophils # (Auto) 0.1x10^3/uL (0.0-0.7) 0.0x10^3/uL (0.0-0.7) Basophils # (Auto) 0.0x10^3/uL (0.0-0.2) 0.0x10^3/uL (0.0-0.2) Sodium Level 144mmol/L (136-145) 143mmol/L (136-145) Potassium Level 4.5mmol/L (3.5-5.1) 3.8mmol/L (3.5-5.1) Chloride Level 103mmol/L (98-107) 106mmol/L (98-107) Carbon Dioxide Level 28mmol/L (21-32) 30mmol/L (21-32) Anion Gap 13 (6-14) 7 (6-14) Blood Urea Nitrogen 28mg/dL (8-26) 30mg/dL (8-26) Creatinine 1.1mg/dL (0.7-1.3) 1.2mg/dL (0.7-1.3) Estimated GFR (Cockcroft-Gault) 63.9 57.8 Glucose Level 135mg/dL (70-99) 174mg/dL (70-99) Calcium Level 8.4mg/dL (8.5-10.1) 8.9mg/dL (8.5-10.1) Review of Systems Review of Systems no fever, chills, sob or chest pain Assessment and Plan Assessmemt and Plan Problems Medical Problems: (1) Closed left femoral fracture Status: Acute (2) Femur fracture, left Status: Acute Problems: Comment Review of Relevant I have reviewed the following items sury (where applicable) has been applied. Labs Laboratory Tests Test 05/01/16 18:15 05/02/16 06:05 White Blood Count 7.0x10^3/uL (4.0-11.0) 8.1x10^3/uL (4.0-11.0) Red Blood Count 3.36x10^6/uL (4.30-5.70) 2.56x10^6/uL (4.30-5.70) Hemoglobin 11.5g/dL (13.0-17.5) 8.8g/dL (13.0-17.5) Hematocrit 33.1% (39.0-53.0) 25.6% (39.0-53.0) Mean Corpuscular Volume 99fL (79-100) 100fL (79-100) Mean Corpuscular Hemoglobin 34pg (25-35) 34pg (25-35) Mean Corpuscular Hemoglobin Concent 35g/dL (31-37) 34g/dL (31-37) Red Cell Distribution Width 13.3% (11.5-14.5) 13.4% (11.5-14.5) Platelet Count 166x10^3/uL (140-400) 126x10^3/uL (140-400) Neutrophils (%) (Auto) 68% (31-73) 82% (31-73) Lymphocytes (%) (Auto) 19% (24-48) 6% (24-48) Monocytes (%) (Auto) 12% (0-9) 11% (0-9) Eosinophils (%) (Auto) 1% (0-3) 0% (0-3) Basophils (%) (Auto) 1% (0-3) 0% (0-3) Neutrophils # (Auto) 4.7x10^3uL (1.8-7.7) 6.6x10^3uL (1.8-7.7) Lymphocytes # (Auto) 1.3x10^3/uL (1.0-4.8) 0.5x10^3/uL (1.0-4.8) Monocytes # (Auto) 0.8x10^3/uL (0.0-1.1) 0.9x10^3/uL (0.0-1.1) Eosinophils # (Auto) 0.1x10^3/uL (0.0-0.7) 0.0x10^3/uL (0.0-0.7) Basophils # (Auto) 0.0x10^3/uL (0.0-0.2) 0.0x10^3/uL (0.0-0.2) Sodium Level 144mmol/L (136-145) 143mmol/L (136-145) Potassium Level 4.5mmol/L (3.5-5.1) 3.8mmol/L (3.5-5.1) Chloride Level 103mmol/L (98-107) 106mmol/L (98-107) Carbon Dioxide Level 28mmol/L (21-32) 30mmol/L (21-32) Anion Gap 13 (6-14) 7 (6-14) Blood Urea Nitrogen 28mg/dL (8-26) 30mg/dL (8-26) Creatinine 1.1mg/dL (0.7-1.3) 1.2mg/dL (0.7-1.3) Estimated GFR (Cockcroft-Gault) 63.9 57.8 Glucose Level 135mg/dL (70-99) 174mg/dL (70-99) Calcium Level 8.4mg/dL (8.5-10.1) 8.9mg/dL (8.5-10.1) Laboratory Tests Test 05/01/16 18:15 05/02/16 06:05 White Blood Count 7.0x10^3/uL (4.0-11.0) 8.1x10^3/uL (4.0-11.0) Red Blood Count 3.36x10^6/uL (4.30-5.70) 2.56x10^6/uL (4.30-5.70) Hemoglobin 11.5g/dL (13.0-17.5) 8.8g/dL (13.0-17.5) Hematocrit 33.1% (39.0-53.0) 25.6% (39.0-53.0) Mean Corpuscular Volume 99fL (79-100) 100fL (79-100) Mean Corpuscular Hemoglobin 34pg (25-35) 34pg (25-35) Mean Corpuscular Hemoglobin Concent 35g/dL (31-37) 34g/dL (31-37) Red Cell Distribution Width 13.3% (11.5-14.5) 13.4% (11.5-14.5) Platelet Count 166x10^3/uL (140-400) 126x10^3/uL (140-400) Neutrophils (%) (Auto) 68% (31-73) 82% (31-73) Lymphocytes (%) (Auto) 19% (24-48) 6% (24-48) Monocytes (%) (Auto) 12% (0-9) 11% (0-9) Eosinophils (%) (Auto) 1% (0-3) 0% (0-3) Basophils (%) (Auto) 1% (0-3) 0% (0-3) Neutrophils # (Auto) 4.7x10^3uL (1.8-7.7) 6.6x10^3uL (1.8-7.7) Lymphocytes # (Auto) 1.3x10^3/uL (1.0-4.8) 0.5x10^3/uL (1.0-4.8) Monocytes # (Auto) 0.8x10^3/uL (0.0-1.1) 0.9x10^3/uL (0.0-1.1) Eosinophils # (Auto) 0.1x10^3/uL (0.0-0.7) 0.0x10^3/uL (0.0-0.7) Basophils # (Auto) 0.0x10^3/uL (0.0-0.2) 0.0x10^3/uL (0.0-0.2) Sodium Level 144mmol/L (136-145) 143mmol/L (136-145) Potassium Level 4.5mmol/L (3.5-5.1) 3.8mmol/L (3.5-5.1) Chloride Level 103mmol/L (98-107) 106mmol/L (98-107) Carbon Dioxide Level 28mmol/L (21-32) 30mmol/L (21-32) Anion Gap 13 (6-14) 7 (6-14) Blood Urea Nitrogen 28mg/dL (8-26) 30mg/dL (8-26) Creatinine 1.1mg/dL (0.7-1.3) 1.2mg/dL (0.7-1.3) Estimated GFR (Cockcroft-Gault) 63.9 57.8 Glucose Level 135mg/dL (70-99) 174mg/dL (70-99) Calcium Level 8.4mg/dL (8.5-10.1) 8.9mg/dL (8.5-10.1) Medications Current Medications Fentanyl Citrate (Fentanyl 2ml Vial) 50 mcg PRN Q15MIN PRN IV PAIN GREATER THAN 3/10 Last administered on 05/01/16 18:41; Start 05/01/16 at 18:00; Stop 12/09 at 17:59 Ondansetron HCl (Zofran) 4 mg 1X ONCE IV Last administered on 05/01/16 18:10; Start 05/01/16 at 18:00; Stop 05/01/16 at 18:01; Status DC Ondansetron HCl (Zofran) 4 mg PRN Q8HRS PRN IV NAUSEA/VOMITING Last administered on 05/01/16 21:04; Start 05/01/16 at 18:15; Stop 05/02/16 at 18:14 Fentanyl Citrate (Fentanyl 2ml Vial) 50 mcg PRN Q2HR PRN IV PAIN Last administered on 05/02/16 12:12; Start 05/01/16 at 18:15; Stop 05/02/16 at 18:14 Acetaminophen (Tylenol) 650 mg PRN Q4HRS PRN PO FEVER; Start 05/01/16 at 18:15; Stop 05/02/16 at 18:14 Acetaminophen (Tylenol) 650 mg PRN Q6HRS PRN PO FEVER; Start 05/01/16 at 18:45 Ondansetron HCl (Zofran) 4 mg PRN Q6HRS PRN IV NAUSEA; Start 05/01/16 at 18:45 Oxycodone/ Acetaminophen 1 tab 1 tab PRN Q6HRS PRN PO PAIN Last administered on 05/02/16 09:29; Start 05/01/16 at 18:45 Propofol (Diprivan) 20 ml @ As Directed STK-MED ONCE IV ; Start 05/01/16 at 19:01 ; Stop 05/01/16 at 19:02; Status DC Lidocaine HCl 100 mg STK-MED ONCE .ROUTE ; Start 05/01/16 at 19:02; Stop 05/01/16 at 19:03; Status DC Phenylephrine HCl 1 mg STK-MED ONCE IV ; Start 05/01/16 at 19:02; Stop 05/01/16 at 19:03; Status DC Ephedrine Sulfate 50 mg STK-MED ONCE IV ; Start 05/01/16 at 19:02; Stop 05/01/16 at 19:03; Status DC Dexamethasone Sodium Phosphate (Decadron) 20 mg STK-MED ONCE .ROUTE ; Start 05/01 at 19:02; Stop 05/01/16 at 19:03; Status DC Ondansetron HCl (Zofran) 4 mg STK-MED ONCE .ROUTE ; Start 05/01/16 at 19:02; Stop 05/01/16 at 19:03; Status DC Ondansetron HCl (Zofran) 4 mg PRN Q6HRS PRN IV Nausea; Start 05/01/16 at 20:30; Stop 05/02/16 at 20:29 Fentanyl Citrate (Fentanyl 2ml Vial) 25 mcg PRN Q5MIN PRN IV MILD PAIN; Start 05/01/16 at 20:30; Stop 05/02/16 at 20:29 Fentanyl Citrate (Fentanyl 2ml Vial) 50 mcg PRN Q5MIN PRN IV MODERATE PAIN; Start 05/01/16 at 20:30; Stop 05/02/16 at 20:29 Morphine Sulfate 1 mg 1 mg PRN Q10MIN PRN IV SEVERE PAIN Last administered on 00:08; Start 05/01/16 at 20:30; Stop 05/02/16 at 20:29 Lactated Ringer's (Iv Lactated Ringers) 1,000 ml @ 0 mls/hr Q0M IV ; Start 05/01 at 20:20; Stop 05/02/16 at 08:19; Status DC Lidocaine HCl 2 ml 1X PRN PRN ID IV START; Start 05/01/16 at 20:30; Stop at 20:29 Hydromorphone HCl (Dilaudid) 0.5 mg PRN Q10MIN PRN IV SEV PAIN,Second choice Last administered on 05/01/16 23:59; Start 05/01/16 at 20:30; Stop 05/02/16 at 20 :29 Prochlorperazine Edisylate (Compazine) 5 mg PACU PRN PRN IV NAUSEA Last administered on 05/01/16 23:40; Start 05/01/16 at 20:30; Stop 05/02/16 at 20:29 Zolpidem Tartrate 5 mg 5 mg PRN QHS PRN PO INSOMNIA; Start 05/01/16 at 21:15; Stop 05/01/16 at 21:20; Status DC Cefazolin Sodium/ Dextrose (Ancef 2gm Premix) 50 ml @ As Directed STK-MED ONCE IV ; Start 05/01/16 at 21:30; Stop 05/01/16 at 21:31; Status DC Fentanyl Citrate (Fentanyl 2ml Vial) 100 mcg STK-MED ONCE .ROUTE ; Start at 21:37; Stop 05/01/16 at 21:38; Status DC Fentanyl Citrate (Fentanyl 2ml Vial) 100 mcg STK-MED ONCE .ROUTE ; Start at 22:25; Stop 05/01/16 at 22:26; Status DC Sevoflurane (Ultane) 60 ml STK-MED ONCE IH ; Start 05/01/16 at 22:50; Stop at 22:51; Status DC Aspirin (Children'S Aspirin) 81 mg DAILY PO Last administered on 05/02/16 09: 26; Start 05/02/16 at 09:00 Atorvastatin Calcium (Lipitor) 40 mg HS PO ; Start 05/02/16 at 21:00 Escitalopram Oxalate (Lexapro) 10 mg DAILY PO Last administered on 05/02/16 09 :29; Start 05/02/16 at 09:00 Lisinopril (Prinivil) 20 mg DAILY PO ; Start 05/02/16 at 09:00 Polyethylene Glycol (miraLAX PACKET) 17 gm DAILY PO Last administered on 09:30; Start 05/02/16 at 09:00 Sennosides (Senna) 8.6 mg DAILY PO Last administered on 05/02/16 09:29; Start 05/02/16 at 09:00 Acetaminophen/ Hydrocodone Bitart (Lortab 5/325) 1 tab PRN Q4HRS PRN PO PAIN; Start 05/02/16 at 08:00 Ferrous Sulfate (Feosol) 325 mg DAILYWBKFT PO Last administered on 05/02/16 09 :29; Start 05/02/16 at 09:00 Active Scripts Active Reported Betimol (Timolol) 5 Ml Drops 5 Ml OP Simbrinza 1%-0.2% Eye Drops (Brinzolamide/Brimonid Tart) 8 Ml Drops.susp 8 Ml OP Senokot (Sennosides) 8.6 Mg Tablet 8.6 Mg PO Miralax (Polyethylene Glycol 3350) 17 Gm Powd.pack 1 Pkt PO DAILY Lisinopril 20 Mg Tablet 20 Mg AD DAILY Escitalopram Oxalate 10 Mg Tablet 10 Mg PO DAILY Atorvastatin Calcium 40 Mg Tablet 40 Mg PO HS Myrbetriq (Mirabegron) 50 Mg Tab.er.24h 50 Mg PO Aspirin 81 Mg Tab.chew 81 Mg PO Vitals/I & O Vital Sign - Last 24 Hours 05/01/16 05/01/16 05/01/16 05/01/16 17:30 17:37 17:52 18:07 Temp 97.8 97.8 Pulse 60 68 74 66 Resp 22 21 21 20 B/P 195/104 195/104 222/103 197/91 Pulse Ox 99 96 100 100 O2 Delivery Room Air Room Air Room Air Room Air 05/01/16 05/01/16 05/01/16 05/01/16 18:10 18:22 18:37 18:40 Pulse 60 62 Resp 18 15 26 18 B/P 188/83 188/94 Pulse Ox 99 100 96 O2 Delivery Room Air Room Air Room Air Simple Mask O2 Flow Rate 2.0 05/01/16 05/01/16 05/01/16 05/01/16 18:41 18:52 19:07 19:22 Pulse 64 62 64 Resp 18 11 27 21 B/P 159/83 162/93 154/83 Pulse Ox 94 99 96 O2 Delivery Room Air Room Air Room Air Room Air 05/01/16 05/01/16 05/01/16 05/01/16 19:45 20:12 20:42 21:36 Temp 98.5 99.4 98.5 99.4 Pulse 60 62 Resp 18 16 16 14 B/P 171/85 124/77 Pulse Ox 98 96 96 92 O2 Delivery Room Air Room Air Simple Mask Room Air O2 Flow Rate 2.0 05/01/16 05/01/16 05/01/16 05/01/16 23:12 23:15 23:25 23:26 Temp 97.6 97.6 Pulse 98 95 Resp 18 B/P 144/97 150/90 Pulse Ox 99 100 O2 Delivery Simple Mask Mask Room Air Simple Mask O2 Flow Rate 10 10 10 05/01/16 05/01/16 05/01/16 05/01/16 23:41 23:42 23:52 23:56 Temp 97.6 97.6 Pulse 98 100 Resp 16 16 16 16 B/P 145/81 150/97 Pulse Ox 97 96 99 98 O2 Delivery Nasal Cannula Nasal Cannula Nasal Cannula Nasal Cannula O2 Flow Rate 2 2.0 2.0 2 05/01/16 05/02/16 05/02/16 05/02/16 23:59 00:08 00:22 00:22 Resp 16 16 16 16 Pulse Ox 98 98 O2 Delivery Nasal Cannula O2 Flow Rate 2.0 2.0 05/02/16 05/02/16 05/02/16 05/02/16 00:31 00:38 00:45 01:00 Temp 97.6 97.6 Pulse 83 80 76 Resp 18 B/P 117/81 121/69 107/70 Pulse Ox 98 98 97 O2 Delivery Nasal Cannula Nasal Cannula Nasal Cannula Nasal Cannula 05/02/16 05/02/16 05/02/16 05/02/16 01:15 01:45 02:39 03:15 Pulse 83 84 95 B/P 105/66 103/69 110/68 Pulse Ox 97 97 96 O2 Delivery Nasal Cannula Nasal Cannula Nasal Cannula Nasal Cannula O2 Flow Rate 2.0 05/02/16 05/02/16 05/02/16 05/02/16 03:21 07:00 09:00 09:29 Temp 97.5 97.7 97.5 97.7 Pulse 85 94 94 Resp 18 16 B/P 112/66 99/58 99/58 Pulse Ox 98 96 96 O2 Delivery Nasal Cannula Nasal Cannula Nasal Cannula O2 Flow Rate 2.0 2.0 05/02/16 05/02/16 05/02/16 10:29 11:34 12:12 Temp 97.9 97.9 Pulse 94 Resp 18 B/P 103/60 Pulse Ox 93 93 93 O2 Delivery Nasal Cannula Nasal Cannula Nasal Cannula O2 Flow Rate 2.0 2.0 2.0 Intake and Output 05/01/16 05/01/16 05/02/16 15:00 23:00 07:00 Intake Total 0 ml 0 ml Balance 0 ml 0 ml ELENITA SARAH MD May 02, 2016 12:55
[2016-05-02] MEDS ORDERED: IV NORMAL SALINE 1000ML BAG 1,000 ML IV PRN (20:45)
[2016-05-02] MEDS: ATORVASTATIN CALCIUM 40 MG TABLET. PO SCH (20:59)
[2016-05-03] VITALS (11 sets, daily range): BP systolic 101–143; BP diastolic 54–71
[2016-05-03 06:36] LABS: CALCIUM 8.2 mg/dL (8.5-10.1); CREATININE 1.1 mg/dL (0.7-1.3); GFR 63.9; POTASSIUM 3.4 mmol/L (3.5-5.1)
[2016-05-03 08:36] LABS: BASO % 0 % (0-3); EOS % 0 % (0-3); LYMPH # 0.7 x10^3/uL (1.0-4.8); LYMPH % 12 % (24-48); MEAN CORPUSCULAR HEMOGLOBIN 35 pg (25-35); MEAN CORPUSCULAR HGB CONC 34 g/dL (31-37); MEAN CORPUSCULAR VOLUME 101 fL (79-100); MONO % 13 % (0-9); NEUT % 75 % (31-73); PLATELET COUNT 82 x10^3/uL (140-400); RED CELL DISTRIBUTION WIDTH 13.3 % (11.5-14.5); WHITE BLOOD COUNT 5.5 x10^3/uL (4.0-11.0)
[2016-05-03] MEDS: OXYCODONE/APAP 5/325 TABLET. PO PRN (08:52)
[2016-05-03] MEDS: FERROUS SULFATE 325 MG TABLET PO SCH (08:53)
[2016-05-03] MEDS: LISINOPRIL 20 MG TABLET PO SCH (08:54)
[2016-05-03] MEDS: ESCITALOPRAM 10 MG TABLET. PO SCH (08:54)
[2016-05-03] MEDS: ASPIRIN 81 MG TAB.CHEW PO SCH (08:54)
[2016-05-03] MEDS: SENNOSIDES 8.6 MG TABLET PO SCH (08:54)
[2016-05-03 08:58] LABS: HEMATOCRIT 17.1 % (39.0-53.0); HEMOGLOBIN 5.9 g/dL (13.0-17.5)
[2016-05-03] MEDS: POLYETHYLENE GLYCOL 3350 17 GM PACKET. PO SCH (09:00)
[2016-05-03] MEDS: FENTANYL PF 100 MCG/2 ML VIAL. IV PRN (09:02)
[2016-05-03 10:00] LABS: DIRECT BILIRUBIN 0.1 mg/dL (0.0-0.2); TOTAL BILIRUBIN 0.4 mg/dL (0.2-1.0); TOTAL PROTEIN 5.2 g/dL (6.4-8.2)
[2016-05-03] MEDS ORDERED: POTASSIUM CHLORIDE 20 MEQ TABLET.ER. PO ONE (10:00)
[2016-05-03 11:17] LABS: INR 1.2 (0.8-1.1); PROTHROMBIN TIME PATIENT 14.7 SEC (11.7-14.0)
--- NOTE | 2016-05-03 15:00 | PDOC ---
PROGRESS NOTES Chief Complaint Chief Complaint 1. traumatic left hip fx post fall 2. htn, benign 3. prostate CA, s/p radiation 4. acute anemia , expected post sx, worsening, need transfusion 5. Mild encephalopathy, post-op, pain and pain meds plan: 1. post ORIF for left hip fx on 05/01 2. fu with ortho 3. need home meds 4. vit D OK, give maintainence replacement SW for rehab History of Present Illness History of Present Illness hgb 8.8 yesterday, dropped again today to 5.9, 2 u PRBC ordered LDH OK folate and B12 ordered feels ok still, no new complaint Vitals Vitals Vital Signs Date Time Temp Pulse Resp B/P Pulse Ox O2 Delivery O2 Flow Rate FiO2 05/03/16 13:55 99.1 83 20 126/63 92 Nasal Cannula 2.0 99.1 Physical Exam General: Alert, Oriented X3, Cooperative, No acute distress Heart: Regular rate, Normal S1, Normal S2, No murmurs Abdomen: Normal bowel sounds, Soft, No hepatosplenomegaly Extremities: No edema, Other (left hip with dressing in place) Skin: No rashes, No breakdown Labs LABS Laboratory Tests Test 05/03/16 05:50 05/03/16 10:30 White Blood Count 5.5x10^3/uL (4.0-11.0) Red Blood Count 1.70x10^6/uL (4.30-5.70) Hemoglobin 5.9g/dL (13.0-17.5) Hematocrit 17.1% (39.0-53.0) Mean Corpuscular Volume 101fL (79-100) Mean Corpuscular Hemoglobin 35pg (25-35) Mean Corpuscular Hemoglobin Concent 34g/dL (31-37) Red Cell Distribution Width 13.3% (11.5-14.5) Platelet Count 82x10^3/uL (140-400) Neutrophils (%) (Auto) 75% (31-73) Lymphocytes (%) (Auto) 12% (24-48) Monocytes (%) (Auto) 13% (0-9) Eosinophils (%) (Auto) 0% (0-3) Basophils (%) (Auto) 0% (0-3) Neutrophils # (Auto) 4.1x10^3uL (1.8-7.7) Lymphocytes # (Auto) 0.7x10^3/uL (1.0-4.8) Monocytes # (Auto) 0.7x10^3/uL (0.0-1.1) Eosinophils # (Auto) 0.0x10^3/uL (0.0-0.7) Basophils # (Auto) 0.0x10^3/uL (0.0-0.2) Sodium Level 142mmol/L (136-145) Potassium Level 3.4mmol/L (3.5-5.1) Chloride Level 106mmol/L (98-107) Carbon Dioxide Level 29mmol/L (21-32) Anion Gap 7 (6-14) Blood Urea Nitrogen 42mg/dL (8-26) Creatinine 1.1mg/dL (0.7-1.3) Estimated GFR (Cockcroft-Gault) 63.9 Glucose Level 122mg/dL (70-99) Calcium Level 8.2mg/dL (8.5-10.1) Magnesium Level 2.1mg/dL (1.8-2.4) Total Bilirubin 0.4mg/dL (0.2-1.0) Direct Bilirubin 0.1mg/dL (0.0-0.2) Aspartate Amino Transf (AST/SGOT) 23U/L (15-37) Alanine Aminotransferase (ALT/SGPT) 15U/L (16-63) Alkaline Phosphatase 45U/L (46-116) Lactate Dehydrogenase 122U/L (85-227) Total Protein 5.2g/dL (6.4-8.2) Albumin 3.0g/dL (3.4-5.0) Prothrombin Time 14.7SEC (11.7-14.0) Prothromb Time International Ratio 1.2 (0.8-1.1) Review of Systems Review of Systems no n/v/d Assessment and Plan Assessmemt and Plan Problems Medical Problems: (1) Closed left femoral fracture Status: Acute (2) Femur fracture, left Status: Acute Problems: Comment Review of Relevant I have reviewed the following items sury (where applicable) has been applied. Labs Laboratory Tests Test 05/01/16 18:15 05/02/16 06:05 05/03/16 05:50 05/03/16 10:30 White Blood Count 7.0x10^3/uL (4.0-11.0) 8.1x10^3/uL (4.0-11.0) 5.5x10^3/uL (4.0-11.0) Red Blood Count 3.36x10^6/uL (4.30-5.70) 2.56x10^6/uL (4.30-5.70) 1.70x10^6/uL (4.30-5.70) Hemoglobin 11.5g/dL (13.0-17.5) 8.8g/dL (13.0-17.5) 5.9g/dL (13.0-17.5) Hematocrit 33.1% (39.0-53.0) 25.6% (39.0-53.0) 17.1% (39.0-53.0) Mean Corpuscular Volume 99fL (79-100) 100fL (79-100) 101fL (79-100) Mean Corpuscular Hemoglobin 34pg (25-35) 34pg (25-35) 35pg (25-35) Mean Corpuscular Hemoglobin Concent 35g/dL (31-37) 34g/dL (31-37) 34g/dL (31-37) Red Cell Distribution Width 13.3% (11.5-14.5) 13.4% (11.5-14.5) 13.3% (11.5-14.5) Platelet Count 166x10^3/uL (140-400) 126x10^3/uL (140-400) 82x10^3/uL (140-400) Neutrophils (%) (Auto) 68% (31-73) 82% (31-73) 75% (31-73) Lymphocytes (%) (Auto) 19% (24-48) 6% (24-48) 12% (24-48) Monocytes (%) (Auto) 12% (0-9) 11% (0-9) 13% (0-9) Eosinophils (%) (Auto) 1% (0-3) 0% (0-3) 0% (0-3) Basophils (%) (Auto) 1% (0-3) 0% (0-3) 0% (0-3) Neutrophils # (Auto) 4.7x10^3uL (1.8-7.7) 6.6x10^3uL (1.8-7.7) 4.1x10^3uL (1.8-7.7) Lymphocytes # (Auto) 1.3x10^3/uL (1.0-4.8) 0.5x10^3/uL (1.0-4.8) 0.7x10^3/uL (1.0-4.8) Monocytes # (Auto) 0.8x10^3/uL (0.0-1.1) 0.9x10^3/uL (0.0-1.1) 0.7x10^3/uL (0.0-1.1) Eosinophils # (Auto) 0.1x10^3/uL (0.0-0.7) 0.0x10^3/uL (0.0-0.7) 0.0x10^3/uL (0.0-0.7) Basophils # (Auto) 0.0x10^3/uL (0.0-0.2) 0.0x10^3/uL (0.0-0.2) 0.0x10^3/uL (0.0-0.2) Sodium Level 144mmol/L (136-145) 143mmol/L (136-145) 142mmol/L (136-145) Potassium Level 4.5mmol/L (3.5-5.1) 3.8mmol/L (3.5-5.1) 3.4mmol/L (3.5-5.1) Chloride Level 103mmol/L (98-107) 106mmol/L (98-107) 106mmol/L (98-107) Carbon Dioxide Level 28mmol/L (21-32) 30mmol/L (21-32) 29mmol/L (21-32) Anion Gap 13 (6-14) 7 (6-14) 7 (6-14) Blood Urea Nitrogen 28mg/dL (8-26) 30mg/dL (8-26) 42mg/dL (8-26) Creatinine 1.1mg/dL (0.7-1.3) 1.2mg/dL (0.7-1.3) 1.1mg/dL (0.7-1.3) Estimated GFR (Cockcroft-Gault) 63.9 57.8 63.9 Glucose Level 135mg/dL (70-99) 174mg/dL (70-99) 122mg/dL (70-99) Calcium Level 8.4mg/dL (8.5-10.1) 8.9mg/dL (8.5-10.1) 8.2mg/dL (8.5-10.1) 25-Hydroxy Vitamin D Total 30.6ng/mL (30.0-100.0) Magnesium Level 2.1mg/dL (1.8-2.4) Total Bilirubin 0.4mg/dL (0.2-1.0) Direct Bilirubin 0.1mg/dL (0.0-0.2) Aspartate Amino Transf (AST/SGOT) 23U/L (15-37) Alanine Aminotransferase (ALT/SGPT) 15U/L (16-63) Alkaline Phosphatase 45U/L (46-116) Lactate Dehydrogenase 122U/L (85-227) Total Protein 5.2g/dL (6.4-8.2) Albumin 3.0g/dL (3.4-5.0) Prothrombin Time 14.7SEC (11.7-14.0) Prothromb Time International Ratio 1.2 (0.8-1.1) Laboratory Tests Test 05/03/16 05:50 05/03/16 10:30 White Blood Count 5.5x10^3/uL (4.0-11.0) Red Blood Count 1.70x10^6/uL (4.30-5.70) Hemoglobin 5.9g/dL (13.0-17.5) Hematocrit 17.1% (39.0-53.0) Mean Corpuscular Volume 101fL (79-100) Mean Corpuscular Hemoglobin 35pg (25-35) Mean Corpuscular Hemoglobin Concent 34g/dL (31-37) Red Cell Distribution Width 13.3% (11.5-14.5) Platelet Count 82x10^3/uL (140-400) Neutrophils (%) (Auto) 75% (31-73) Lymphocytes (%) (Auto) 12% (24-48) Monocytes (%) (Auto) 13% (0-9) Eosinophils (%) (Auto) 0% (0-3) Basophils (%) (Auto) 0% (0-3) Neutrophils # (Auto) 4.1x10^3uL (1.8-7.7) Lymphocytes # (Auto) 0.7x10^3/uL (1.0-4.8) Monocytes # (Auto) 0.7x10^3/uL (0.0-1.1) Eosinophils # (Auto) 0.0x10^3/uL (0.0-0.7) Basophils # (Auto) 0.0x10^3/uL (0.0-0.2) Sodium Level 142mmol/L (136-145) Potassium Level 3.4mmol/L (3.5-5.1) Chloride Level 106mmol/L (98-107) Carbon Dioxide Level 29mmol/L (21-32) Anion Gap 7 (6-14) Blood Urea Nitrogen 42mg/dL (8-26) Creatinine 1.1mg/dL (0.7-1.3) Estimated GFR (Cockcroft-Gault) 63.9 Glucose Level 122mg/dL (70-99) Calcium Level 8.2mg/dL (8.5-10.1) Magnesium Level 2.1mg/dL (1.8-2.4) Total Bilirubin 0.4mg/dL (0.2-1.0) Direct Bilirubin 0.1mg/dL (0.0-0.2) Aspartate Amino Transf (AST/SGOT) 23U/L (15-37) Alanine Aminotransferase (ALT/SGPT) 15U/L (16-63) Alkaline Phosphatase 45U/L (46-116) Lactate Dehydrogenase 122U/L (85-227) Total Protein 5.2g/dL (6.4-8.2) Albumin 3.0g/dL (3.4-5.0) Prothrombin Time 14.7SEC (11.7-14.0) Prothromb Time International Ratio 1.2 (0.8-1.1) Medications Current Medications Fentanyl Citrate (Fentanyl 2ml Vial) 50 mcg PRN Q15MIN PRN IV PAIN GREATER THAN 3/10 Last administered on 05/01/16 18:41; Start 05/01/16 at 18:00; Stop 12/09 at 17:59; Status DC Ondansetron HCl (Zofran) 4 mg 1X ONCE IV Last administered on 05/01/16 18:10; Start 05/01/16 at 18:00; Stop 05/01/16 at 18:01; Status DC Ondansetron HCl (Zofran) 4 mg PRN Q8HRS PRN IV NAUSEA/VOMITING Last administered on 05/01/16 21:04; Start 05/01/16 at 18:15; Stop 05/02/16 at 18:14; Status DC Fentanyl Citrate (Fentanyl 2ml Vial) 50 mcg PRN Q2HR PRN IV PAIN Last administered on 05/02/16 12:12; Start 05/01/16 at 18:15; Stop 05/02/16 at 18:14 ; Status DC Acetaminophen (Tylenol) 650 mg PRN Q4HRS PRN PO FEVER; Start 05/01/16 at 18:15; Stop 05/02/16 at 18:14; Status DC Acetaminophen (Tylenol) 650 mg PRN Q6HRS PRN PO FEVER; Start 05/01/16 at 18:45 Ondansetron HCl (Zofran) 4 mg PRN Q6HRS PRN IV NAUSEA; Start 05/01/16 at 18:45 Oxycodone/ Acetaminophen 1 tab 1 tab PRN Q6HRS PRN PO PAIN Last administered on 05/03/16 08:52; Start 05/01/16 at 18:45 Propofol (Diprivan) 20 ml @ As Directed STK-MED ONCE IV ; Start 05/01/16 at 19:01 ; Stop 05/01/16 at 19:02; Status DC Lidocaine HCl 100 mg STK-MED ONCE .ROUTE ; Start 05/01/16 at 19:02; Stop 05/01/16 at 19:03; Status DC Phenylephrine HCl 1 mg STK-MED ONCE IV ; Start 05/01/16 at 19:02; Stop 05/01/16 at 19:03; Status DC Ephedrine Sulfate 50 mg STK-MED ONCE IV ; Start 05/01/16 at 19:02; Stop 05/01/16 at 19:03; Status DC Dexamethasone Sodium Phosphate (Decadron) 20 mg STK-MED ONCE .ROUTE ; Start 05/01 at 19:02; Stop 05/01/16 at 19:03; Status DC Ondansetron HCl (Zofran) 4 mg STK-MED ONCE .ROUTE ; Start 05/01/16 at 19:02; Stop 05/01/16 at 19:03; Status DC Ondansetron HCl (Zofran) 4 mg PRN Q6HRS PRN IV Nausea; Start 05/01/16 at 20:30; Stop 05/02/16 at 20:29; Status DC Fentanyl Citrate (Fentanyl 2ml Vial) 25 mcg PRN Q5MIN PRN IV MILD PAIN; Start 05/01/16 at 20:30; Stop 05/02/16 at 20:29; Status DC Fentanyl Citrate (Fentanyl 2ml Vial) 50 mcg PRN Q5MIN PRN IV MODERATE PAIN; Start 05/01/16 at 20:30; Stop 05/02/16 at 20:29; Status DC Morphine Sulfate 1 mg 1 mg PRN Q10MIN PRN IV SEVERE PAIN Last administered on 00:08; Start 05/01/16 at 20:30; Stop 05/02/16 at 20:29; Status DC Lactated Ringer's (Iv Lactated Ringers) 1,000 ml @ 0 mls/hr Q0M IV ; Start 05/01 at 20:20; Stop 05/02/16 at 08:19; Status DC Lidocaine HCl 2 ml 1X PRN PRN ID IV START; Start 05/01/16 at 20:30; Stop at 20:29; Status DC Hydromorphone HCl (Dilaudid) 0.5 mg PRN Q10MIN PRN IV SEV PAIN,Second choice Last administered on 05/01/16 23:59; Start 05/01/16 at 20:30; Stop 05/02/16 at 20 :29; Status DC Prochlorperazine Edisylate (Compazine) 5 mg PACU PRN PRN IV NAUSEA Last administered on 05/01/16 23:40; Start 05/01/16 at 20:30; Stop 05/02/16 at 20:29; Status DC Zolpidem Tartrate 5 mg 5 mg PRN QHS PRN PO INSOMNIA; Start 05/01/16 at 21:15; Stop 05/01/16 at 21:20; Status DC Cefazolin Sodium/ Dextrose (Ancef 2gm Premix) 50 ml @ As Directed STK-MED ONCE IV ; Start 05/01/16 at 21:30; Stop 05/01/16 at 21:31; Status DC Fentanyl Citrate (Fentanyl 2ml Vial) 100 mcg STK-MED ONCE .ROUTE ; Start at 21:37; Stop 05/01/16 at 21:38; Status DC Fentanyl Citrate (Fentanyl 2ml Vial) 100 mcg STK-MED ONCE .ROUTE ; Start at 22:25; Stop 05/01/16 at 22:26; Status DC Sevoflurane (Ultane) 60 ml STK-MED ONCE IH ; Start 05/01/16 at 22:50; Stop at 22:51; Status DC Aspirin (Children'S Aspirin) 81 mg DAILY PO Last administered on 05/03/16 08: 54; Start 05/02/16 at 09:00 Atorvastatin Calcium (Lipitor) 40 mg HS PO Last administered on 05/02/16 20:59 ; Start 05/02/16 at 21:00 Escitalopram Oxalate (Lexapro) 10 mg DAILY PO Last administered on 05/03/16 08 :54; Start 05/02/16 at 09:00 Lisinopril (Prinivil) 20 mg DAILY PO Last administered on 05/03/16 08:54; Start 05/02/16 at 09:00 Polyethylene Glycol (miraLAX PACKET) 17 gm DAILY PO Last administered on 09:00; Start 05/02/16 at 09:00 Sennosides (Senna) 8.6 mg DAILY PO Last administered on 05/03/16 08:54; Start 05/02/16 at 09:00 Acetaminophen/ Hydrocodone Bitart (Lortab 5/325) 1 tab PRN Q4HRS PRN PO PAIN; Start 05/02/16 at 08:00 Ferrous Sulfate (Feosol) 325 mg DAILYWBKFT PO Last administered on 05/03/16 08 :53; Start 05/02/16 at 09:00 Fentanyl Citrate 50 mcg 50 mcg PRN Q2HR PRN IV PAIN SEV Last administered on 09:02; Start 05/02/16 at 20:45 Sodium Chloride (Iv Sodium Chloride 0.9% 1000ml Bag) 1,000 ml @ 125 mls/hr CONT PRN IV I/O Last administered on 05/03/16 03:49; Start 05/02/16 at 20:45 Potassium Chloride (Klor-Con) 40 meq 1X ONCE PO ; Start 05/03/16 at 10:00; Stop 05/03/16 at 10:01; Status DC Vitamin D (Vitamin D3) 5,000 unit DAILY PO ; Start 05/03/16 at 14:00 Active Scripts Active Reported Betimol (Timolol) 5 Ml Drops 5 Ml OP Simbrinza 1%-0.2% Eye Drops (Brinzolamide/Brimonid Tart) 8 Ml Drops.susp 8 Ml OP Senokot (Sennosides) 8.6 Mg Tablet 8.6 Mg PO Miralax (Polyethylene Glycol 3350) 17 Gm Powd.pack 1 Pkt PO DAILY Lisinopril 20 Mg Tablet 20 Mg AD DAILY Escitalopram Oxalate 10 Mg Tablet 10 Mg PO DAILY Atorvastatin Calcium 40 Mg Tablet 40 Mg PO HS Myrbetriq (Mirabegron) 50 Mg Tab.er.24h 50 Mg PO Aspirin 81 Mg Tab.chew 81 Mg PO Vitals/I & O Vital Sign - Last 24 Hours 05/02/16 05/02/16 05/02/16 05/02/16 15:00 19:25 19:43 19:45 Temp 97.7 98.4 97.7 98.4 Pulse 91 85 Resp 18 18 18 B/P 80/53 101/49 Pulse Ox 93 97 93 O2 Delivery Nasal Cannula Nasal Cannula Nasal Cannula Nasal Cannula O2 Flow Rate 2.0 2.0 2.0 2.0 05/02/16 05/02/16 05/02/16 05/02/16 20:45 21:00 21:30 23:49 Temp 98.7 98.7 Pulse 81 Resp 20 20 20 16 B/P 98/51 Pulse Ox 93 93 93 92 O2 Delivery Nasal Cannula Nasal Cannula Nasal Cannula Nasal Cannula O2 Flow Rate 2.0 2.0 2.0 2.0 05/03/16 05/03/16 05/03/16 05/03/16 03:37 07:00 08:54 11:00 Temp 99.0 98.4 98.0 99.0 98.4 98.0 Pulse 84 89 84 82 Resp 16 20 20 B/P 105/54 111/60 105/54 143/61 Pulse Ox 94 94 94 O2 Delivery Nasal Cannula Nasal Cannula Nasal Cannula O2 Flow Rate 2.0 2.0 2.0 05/03/16 05/03/16 13:01 13:55 Temp 98.9 99.1 98.9 99.1 Pulse 95 83 Resp 12 20 B/P 139/69 126/63 Pulse Ox 92 O2 Delivery Nasal Cannula O2 Flow Rate 2.0 Intake and Output 05/02/16 05/02/16 05/03/16 15:00 23:00 07:00 Intake Total 120 ml 2373 ml Output Total 150 ml Balance -30 ml 2373 ml SELINA HEWITT MD May 03, 2016 15:00
[2016-05-03] MEDS ORDERED: ACETAMINOPHEN 325 MG TABLET. PO ONE (15:30)
[2016-05-03] MEDS ORDERED: DIPHENHYDRAMINE HCL 25 MG CAPSULE PO ONE (15:30)
[2016-05-03] MEDS ORDERED: DIPHENHYDRAMINE 50 MG/ML VIAL IV ONE (15:30)
[2016-05-03] MEDS ORDERED: HYDROCORTISONE SOD SUCC/PF 100 MG/2 ML VIAL. IV ONE (15:30)
[2016-05-03] MEDS: CHOLECALCIFEROL (VITAMIN D3) 5,000 UNIT CAPSULE PO SCH (16:09)
[2016-05-03 18:59] LABS: BASO % 0 % (0-3); EOS % 0 % (0-3); LYMPH # 0.3 x10^3/uL (1.0-4.8); LYMPH % 6 % (24-48); MEAN CORPUSCULAR HEMOGLOBIN 34 pg (25-35); MEAN CORPUSCULAR HGB CONC 34 g/dL (31-37); MEAN CORPUSCULAR VOLUME 98 fL (79-100); MONO % 9 % (0-9); NEUT % 85 % (31-73); PLATELET COUNT 71 x10^3/uL (140-400); RED BLOOD COUNT 1.93 x10^6/uL (4.30-5.70); RED CELL DISTRIBUTION WIDTH 14.5 % (11.5-14.5); WHITE BLOOD COUNT 5.1 x10^3/uL (4.0-11.0)
[2016-05-03 19:10] LABS: HEMATOCRIT 18.9 % (39.0-53.0); HEMOGLOBIN 6.5 g/dL (13.0-17.5)
[2016-05-03] MEDS ORDERED: DIPHENHYDRAMINE 50 MG/ML VIAL IVP ONE (22:00)
[2016-05-03] MEDS: ATORVASTATIN CALCIUM 40 MG TABLET. PO SCH (22:53)
[2016-05-04] VITALS (10 sets, daily range): BP systolic 112–170; BP diastolic 61–85
[2016-05-04] MEDS: HYDROCODONE/APAP 5/325MG TABLET. PO PRN ×4 (03:50→22:12)
--- NOTE | 2016-05-04 08:22 | RAD ---
EXAM: Chest one view. HISTORY: Transfusion reaction. COMPARISON: 05/01/2016. FINDINGS: A frontal view of the chest is obtained. The inspiration is small. Retrocardiac opacity indicates atelectasis or mild infiltrate. There is no pneumothorax or pleural effusion. The heart is not enlarged. The aorta is tortuous. IMPRESSION: 1. Retrocardiac atelectasis or mild infiltrate.
[2016-05-04] MEDS: LISINOPRIL 20 MG TABLET PO SCH (09:00)
[2016-05-04 09:01] LABS: BASO % 0 % (0-3); EOS % 1 % (0-3); HEMATOCRIT 21.7 % (39.0-53.0); HEMOGLOBIN 7.5 g/dL (13.0-17.5); LYMPH # 0.9 x10^3/uL (1.0-4.8); LYMPH % 17 % (24-48); MEAN CORPUSCULAR HEMOGLOBIN 34 pg (25-35); MEAN CORPUSCULAR HGB CONC 35 g/dL (31-37); MEAN CORPUSCULAR VOLUME 97 fL (79-100); MONO % 12 % (0-9); NEUT % 69 % (31-73); PLATELET COUNT 84 x10^3/uL (140-400); RED BLOOD COUNT 2.25 x10^6/uL (4.30-5.70); RED CELL DISTRIBUTION WIDTH 14.6 % (11.5-14.5); WHITE BLOOD COUNT 4.9 x10^3/uL (4.0-11.0)
[2016-05-04] MEDS: ESCITALOPRAM 10 MG TABLET. PO SCH (09:36)
[2016-05-04] MEDS: SENNOSIDES 8.6 MG TABLET PO SCH (09:36)
[2016-05-04] MEDS: CHOLECALCIFEROL (VITAMIN D3) 5,000 UNIT CAPSULE PO SCH (09:37)
[2016-05-04] MEDS: FERROUS SULFATE 325 MG TABLET PO SCH (09:37)
[2016-05-04] MEDS: POLYETHYLENE GLYCOL 3350 17 GM PACKET. PO SCH (09:38)
[2016-05-04] MEDS: ASPIRIN 81 MG TAB.CHEW PO SCH (09:38)
[2016-05-04] MEDS ORDERED: CYANOCOBALAMIN (VITAMIN B-12) 1,000 MCG/ML VIAL IM ONE (11:00)
--- NOTE | 2016-05-04 12:47 | PDOC ---
PROGRESS NOTES Chief Complaint Chief Complaint 1. traumatic left hip fx post fall 2. htn 3. prostate CA, s/p radiation 4. acute anemia , expected post sx, better this AM 5. delirium last night, metabolic encephalopathy, improving, p History of Present Illness History of Present Illness hgb has responded well to transfusion fever with first unit of blood last night family has been very concerned, asking mult questions about Hgb, and where blood could be going I was asked by Ortho if patient could also have some possible GI bleed w/u for consumption neg, vitals have been and are excellent folate and B12 still pending, macrocytosis, will treat as low feels ok still, no new complaint, more oriented than last night 5pm Vitals Vitals Vital Signs Date Time Temp Pulse Resp B/P Pulse Ox O2 Delivery O2 Flow Rate FiO2 05/04/16 11:00 98.1 97 20 157/67 93 Room Air 98.1 05/04/16 08:00 2.0 Physical Exam General: Alert, Oriented X3, Cooperative, No acute distress Heart: Regular rate, Normal S1, Normal S2, No murmurs Abdomen: Normal bowel sounds, Soft, No hepatosplenomegaly Extremities: No edema, Other (left hip with dressing in place) Skin: No rashes, No breakdown Labs LABS Laboratory Tests Test 05/03/16 18:30 05/04/16 08:47 White Blood Count 5.1x10^3/uL (4.0-11.0) 4.9x10^3/uL (4.0-11.0) Red Blood Count 1.93x10^6/uL (4.30-5.70) 2.25x10^6/uL (4.30-5.70) Hemoglobin 6.5g/dL (13.0-17.5) 7.5g/dL (13.0-17.5) Hematocrit 18.9% (39.0-53.0) 21.7% (39.0-53.0) Mean Corpuscular Volume 98fL (79-100) 97fL (79-100) Mean Corpuscular Hemoglobin 34pg (25-35) 34pg (25-35) Mean Corpuscular Hemoglobin Concent 34g/dL (31-37) 35g/dL (31-37) Red Cell Distribution Width 14.5% (11.5-14.5) 14.6% (11.5-14.5) Platelet Count 71x10^3/uL (140-400) 84x10^3/uL (140-400) Neutrophils (%) (Auto) 85% (31-73) 69% (31-73) Lymphocytes (%) (Auto) 6% (24-48) 17% (24-48) Monocytes (%) (Auto) 9% (0-9) 12% (0-9) Eosinophils (%) (Auto) 0% (0-3) 1% (0-3) Basophils (%) (Auto) 0% (0-3) 0% (0-3) Neutrophils # (Auto) 4.3x10^3uL (1.8-7.7) 3.4x10^3uL (1.8-7.7) Lymphocytes # (Auto) 0.3x10^3/uL (1.0-4.8) 0.9x10^3/uL (1.0-4.8) Monocytes # (Auto) 0.5x10^3/uL (0.0-1.1) 0.6x10^3/uL (0.0-1.1) Eosinophils # (Auto) 0.0x10^3/uL (0.0-0.7) 0.1x10^3/uL (0.0-0.7) Basophils # (Auto) 0.0x10^3/uL (0.0-0.2) 0.0x10^3/uL (0.0-0.2) Assessment and Plan Assessmemt and Plan Problems Medical Problems: (1) Closed left femoral fracture Status: Acute (2) Femur fracture, left Status: Acute Problems: Comment Review of Relevant I have reviewed the following items sury (where applicable) has been applied. Labs Laboratory Tests Test 05/03/16 05:50 05/03/16 10:30 05/03/16 18:30 05/04/16 08:47 White Blood Count 5.5x10^3/uL (4.0-11.0) 5.1x10^3/uL (4.0-11.0) 4.9x10^3/uL (4.0-11.0) Red Blood Count 1.70x10^6/uL (4.30-5.70) 1.93x10^6/uL (4.30-5.70) 2.25x10^6/uL (4.30-5.70) Hemoglobin 5.9g/dL (13.0-17.5) 6.5g/dL (13.0-17.5) 7.5g/dL (13.0-17.5) Hematocrit 17.1% (39.0-53.0) 18.9% (39.0-53.0) 21.7% (39.0-53.0) Mean Corpuscular Volume 101fL (79-100) 98fL (79-100) 97fL (79-100) Mean Corpuscular Hemoglobin 35pg (25-35) 34pg (25-35) 34pg (25-35) Mean Corpuscular Hemoglobin Concent 34g/dL (31-37) 34g/dL (31-37) 35g/dL (31-37) Red Cell Distribution Width 13.3% (11.5-14.5) 14.5% (11.5-14.5) 14.6% (11.5-14.5) Platelet Count 82x10^3/uL (140-400) 71x10^3/uL (140-400) 84x10^3/uL (140-400) Neutrophils (%) (Auto) 75% (31-73) 85% (31-73) 69% (31-73) Lymphocytes (%) (Auto) 12% (24-48) 6% (24-48) 17% (24-48) Monocytes (%) (Auto) 13% (0-9) 9% (0-9) 12% (0-9) Eosinophils (%) (Auto) 0% (0-3) 0% (0-3) 1% (0-3) Basophils (%) (Auto) 0% (0-3) 0% (0-3) 0% (0-3) Neutrophils # (Auto) 4.1x10^3uL (1.8-7.7) 4.3x10^3uL (1.8-7.7) 3.4x10^3uL (1.8-7.7) Lymphocytes # (Auto) 0.7x10^3/uL (1.0-4.8) 0.3x10^3/uL (1.0-4.8) 0.9x10^3/uL (1.0-4.8) Monocytes # (Auto) 0.7x10^3/uL (0.0-1.1) 0.5x10^3/uL (0.0-1.1) 0.6x10^3/uL (0.0-1.1) Eosinophils # (Auto) 0.0x10^3/uL (0.0-0.7) 0.0x10^3/uL (0.0-0.7) 0.1x10^3/uL (0.0-0.7) Basophils # (Auto) 0.0x10^3/uL (0.0-0.2) 0.0x10^3/uL (0.0-0.2) 0.0x10^3/uL (0.0-0.2) Haptoglobin 120mg/dL (34-200) Sodium Level 142mmol/L (136-145) Potassium Level 3.4mmol/L (3.5-5.1) Chloride Level 106mmol/L (98-107) Carbon Dioxide Level 29mmol/L (21-32) Anion Gap 7 (6-14) Blood Urea Nitrogen 42mg/dL (8-26) Creatinine 1.1mg/dL (0.7-1.3) Estimated GFR (Cockcroft-Gault) 63.9 Glucose Level 122mg/dL (70-99) Calcium Level 8.2mg/dL (8.5-10.1) Magnesium Level 2.1mg/dL (1.8-2.4) Total Bilirubin 0.4mg/dL (0.2-1.0) Direct Bilirubin 0.1mg/dL (0.0-0.2) Aspartate Amino Transf (AST/SGOT) 23U/L (15-37) Alanine Aminotransferase (ALT/SGPT) 15U/L (16-63) Alkaline Phosphatase 45U/L (46-116) Lactate Dehydrogenase 122U/L (85-227) Total Protein 5.2g/dL (6.4-8.2) Albumin 3.0g/dL (3.4-5.0) Prothrombin Time 14.7SEC (11.7-14.0) Prothromb Time International Ratio 1.2 (0.8-1.1) Laboratory Tests Test 05/03/16 18:30 05/04/16 08:47 White Blood Count 5.1x10^3/uL (4.0-11.0) 4.9x10^3/uL (4.0-11.0) Red Blood Count 1.93x10^6/uL (4.30-5.70) 2.25x10^6/uL (4.30-5.70) Hemoglobin 6.5g/dL (13.0-17.5) 7.5g/dL (13.0-17.5) Hematocrit 18.9% (39.0-53.0) 21.7% (39.0-53.0) Mean Corpuscular Volume 98fL (79-100) 97fL (79-100) Mean Corpuscular Hemoglobin 34pg (25-35) 34pg (25-35) Mean Corpuscular Hemoglobin Concent 34g/dL (31-37) 35g/dL (31-37) Red Cell Distribution Width 14.5% (11.5-14.5) 14.6% (11.5-14.5) Platelet Count 71x10^3/uL (140-400) 84x10^3/uL (140-400) Neutrophils (%) (Auto) 85% (31-73) 69% (31-73) Lymphocytes (%) (Auto) 6% (24-48) 17% (24-48) Monocytes (%) (Auto) 9% (0-9) 12% (0-9) Eosinophils (%) (Auto) 0% (0-3) 1% (0-3) Basophils (%) (Auto) 0% (0-3) 0% (0-3) Neutrophils # (Auto) 4.3x10^3uL (1.8-7.7) 3.4x10^3uL (1.8-7.7) Lymphocytes # (Auto) 0.3x10^3/uL (1.0-4.8) 0.9x10^3/uL (1.0-4.8) Monocytes # (Auto) 0.5x10^3/uL (0.0-1.1) 0.6x10^3/uL (0.0-1.1) Eosinophils # (Auto) 0.0x10^3/uL (0.0-0.7) 0.1x10^3/uL (0.0-0.7) Basophils # (Auto) 0.0x10^3/uL (0.0-0.2) 0.0x10^3/uL (0.0-0.2) Medications Current Medications Fentanyl Citrate (Fentanyl 2ml Vial) 50 mcg PRN Q15MIN PRN IV PAIN GREATER THAN 3/10 Last administered on 05/01/16 18:41; Start 05/01/16 at 18:00; Stop 12/09 at 17:59; Status DC Ondansetron HCl (Zofran) 4 mg 1X ONCE IV Last administered on 05/01/16 18:10; Start 05/01/16 at 18:00; Stop 05/01/16 at 18:01; Status DC Ondansetron HCl (Zofran) 4 mg PRN Q8HRS PRN IV NAUSEA/VOMITING Last administered on 05/01/16 21:04; Start 05/01/16 at 18:15; Stop 05/02/16 at 18:14; Status DC Fentanyl Citrate (Fentanyl 2ml Vial) 50 mcg PRN Q2HR PRN IV PAIN Last administered on 05/02/16 12:12; Start 05/01/16 at 18:15; Stop 05/02/16 at 18:14 ; Status DC Acetaminophen (Tylenol) 650 mg PRN Q4HRS PRN PO FEVER; Start 05/01/16 at 18:15; Stop 05/02/16 at 18:14; Status DC Acetaminophen (Tylenol) 650 mg PRN Q6HRS PRN PO FEVER Last administered on 05/03 22:09; Start 05/01/16 at 18:45 Ondansetron HCl (Zofran) 4 mg PRN Q6HRS PRN IV NAUSEA; Start 05/01/16 at 18:45 Oxycodone/ Acetaminophen 1 tab 1 tab PRN Q6HRS PRN PO PAIN Last administered on 05/03/16 08:52; Start 05/01/16 at 18:45 Propofol (Diprivan) 20 ml @ As Directed STK-MED ONCE IV ; Start 05/01/16 at 19:01 ; Stop 05/01/16 at 19:02; Status DC Lidocaine HCl 100 mg STK-MED ONCE .ROUTE ; Start 05/01/16 at 19:02; Stop 05/01/16 at 19:03; Status DC Phenylephrine HCl 1 mg STK-MED ONCE IV ; Start 05/01/16 at 19:02; Stop 05/01/16 at 19:03; Status DC Ephedrine Sulfate 50 mg STK-MED ONCE IV ; Start 05/01/16 at 19:02; Stop 05/01/16 at 19:03; Status DC Dexamethasone Sodium Phosphate (Decadron) 20 mg STK-MED ONCE .ROUTE ; Start 05/01 at 19:02; Stop 05/01/16 at 19:03; Status DC Ondansetron HCl (Zofran) 4 mg STK-MED ONCE .ROUTE ; Start 05/01/16 at 19:02; Stop 05/01/16 at 19:03; Status DC Ondansetron HCl (Zofran) 4 mg PRN Q6HRS PRN IV Nausea; Start 05/01/16 at 20:30; Stop 05/02/16 at 20:29; Status DC Fentanyl Citrate (Fentanyl 2ml Vial) 25 mcg PRN Q5MIN PRN IV MILD PAIN; Start 05/01/16 at 20:30; Stop 05/02/16 at 20:29; Status DC Fentanyl Citrate (Fentanyl 2ml Vial) 50 mcg PRN Q5MIN PRN IV MODERATE PAIN; Start 05/01/16 at 20:30; Stop 05/02/16 at 20:29; Status DC Morphine Sulfate 1 mg 1 mg PRN Q10MIN PRN IV SEVERE PAIN Last administered on 00:08; Start 05/01/16 at 20:30; Stop 05/02/16 at 20:29; Status DC Lactated Ringer's (Iv Lactated Ringers) 1,000 ml @ 0 mls/hr Q0M IV ; Start 05/01 at 20:20; Stop 05/02/16 at 08:19; Status DC Lidocaine HCl 2 ml 1X PRN PRN ID IV START; Start 05/01/16 at 20:30; Stop at 20:29; Status DC Hydromorphone HCl (Dilaudid) 0.5 mg PRN Q10MIN PRN IV SEV PAIN,Second choice Last administered on 05/01/16 23:59; Start 05/01/16 at 20:30; Stop 05/02/16 at 20 :29; Status DC Prochlorperazine Edisylate (Compazine) 5 mg PACU PRN PRN IV NAUSEA Last administered on 05/01/16 23:40; Start 05/01/16 at 20:30; Stop 05/02/16 at 20:29; Status DC Zolpidem Tartrate 5 mg 5 mg PRN QHS PRN PO INSOMNIA; Start 05/01/16 at 21:15; Stop 05/01/16 at 21:20; Status DC Cefazolin Sodium/ Dextrose (Ancef 2gm Premix) 50 ml @ As Directed STK-MED ONCE IV ; Start 05/01/16 at 21:30; Stop 05/01/16 at 21:31; Status DC Fentanyl Citrate (Fentanyl 2ml Vial) 100 mcg STK-MED ONCE .ROUTE ; Start at 21:37; Stop 05/01/16 at 21:38; Status DC Fentanyl Citrate (Fentanyl 2ml Vial) 100 mcg STK-MED ONCE .ROUTE ; Start at 22:25; Stop 05/01/16 at 22:26; Status DC Sevoflurane (Ultane) 60 ml STK-MED ONCE IH ; Start 05/01/16 at 22:50; Stop at 22:51; Status DC Aspirin (Children'S Aspirin) 81 mg DAILY PO Last administered on 05/04/16 09: 38; Start 05/02/16 at 09:00 Atorvastatin Calcium (Lipitor) 40 mg HS PO Last administered on 05/03/16 22:53 ; Start 05/02/16 at 21:00 Escitalopram Oxalate (Lexapro) 10 mg DAILY PO Last administered on 05/04/16 09 :36; Start 05/02/16 at 09:00 Lisinopril (Prinivil) 20 mg DAILY PO Last administered on 05/03/16 08:54; Start 05/02/16 at 09:00 Polyethylene Glycol (miraLAX PACKET) 17 gm DAILY PO Last administered on 09:38; Start 05/02/16 at 09:00 Sennosides (Senna) 8.6 mg DAILY PO Last administered on 05/04/16 09:36; Start 05/02/16 at 09:00 Acetaminophen/ Hydrocodone Bitart (Lortab 5/325) 1 tab PRN Q4HRS PRN PO PAIN Last administered on 05/04/16 09:37; Start 05/02/16 at 08:00 Ferrous Sulfate (Feosol) 325 mg DAILYWBKFT PO Last administered on 05/04/16 09 :37; Start 05/02/16 at 09:00 Fentanyl Citrate 50 mcg 50 mcg PRN Q2HR PRN IV PAIN SEV Last administered on 09:02; Start 05/02/16 at 20:45 Sodium Chloride (Iv Sodium Chloride 0.9% 1000ml Bag) 1,000 ml @ 125 mls/hr CONT PRN IV I/O Last administered on 05/03/16 03:49; Start 05/02/16 at 20:45; Stop 05/03/16 at 19:35; Status DC Potassium Chloride (Klor-Con) 40 meq 1X ONCE PO Last administered on 16:09; Start 05/03/16 at 10:00; Stop 05/03/16 at 10:01; Status DC Vitamin D (Vitamin D3) 5,000 unit DAILY PO Last administered on 05/04/16 09:37 ; Start 05/03/16 at 14:00 Diphenhydramine HCl (Benadryl) 25 mg 1X ONCE IV ; Start 05/03/16 at 15:30; Stop 05/03/16 at 15:30; Status DC Hydrocortisone Sodium Succinate (Solu-Cortef) 100 mg 1X ONCE IV Last administered on 05/03/16 15:43; Start 05/03/16 at 15:30; Stop 05/03/16 at 15:31 ; Status DC Diphenhydramine HCl (Benadryl) 25 mg 1X ONCE PO Last administered on 15:42; Start 05/03/16 at 15:30; Stop 05/03/16 at 15:31; Status DC Acetaminophen (Tylenol) 650 mg 1X ONCE PO Last administered on 05/03/16 15:42 ; Start 05/03/16 at 15:30; Stop 05/03/16 at 15:31; Status DC Diphenhydramine HCl (Benadryl) 25 mg 1X ONCE IVP Last administered on 22:08; Start 05/03/16 at 22:00; Stop 05/03/16 at 22:01; Status DC Cyanocobalamin (Vitamin B-12) 1,000 mcg 1X ONCE IM ; Start 05/04/16 at 11:00; Stop 05/04/16 at 11:01; Status DC Vitamin B Complex (Folbic Tablet) 1 tab DAILY PO ; Start 05/04/16 at 10:15 Multivitamins (Thera M Plus) 1 tab DAILY PO ; Start 05/04/16 at 11:00 Active Scripts Active Reported Betimol (Timolol) 5 Ml Drops 5 Ml OP Simbrinza 1%-0.2% Eye Drops (Brinzolamide/Brimonid Tart) 8 Ml Drops.susp 8 Ml OP Senokot (Sennosides) 8.6 Mg Tablet 8.6 Mg PO Miralax (Polyethylene Glycol 3350) 17 Gm Powd.pack 1 Pkt PO DAILY Lisinopril 20 Mg Tablet 20 Mg AD DAILY Escitalopram Oxalate 10 Mg Tablet 10 Mg PO DAILY Atorvastatin Calcium 40 Mg Tablet 40 Mg PO HS Myrbetriq (Mirabegron) 50 Mg Tab.er.24h 50 Mg PO Aspirin 81 Mg Tab.chew 81 Mg PO Vitals/I & O Vital Sign - Last 24 Hours 05/03/16 05/03/16 05/03/16 05/03/16 13:01 13:55 14:55 19:30 Temp 98.9 99.1 101.8 98.7 98.9 99.1 101.8 98.7 Pulse 95 83 94 85 Resp 12 20 20 22 B/P 139/69 126/63 125/62 114/69 Pulse Ox 92 94 93 O2 Delivery Nasal Cannula Nasal Cannula Nasal Cannula O2 Flow Rate 2.0 2.0 2.0 05/03/16 05/03/16 05/03/16 05/03/16 20:30 21:45 22:30 22:45 Temp 98.6 98.2 98.0 98.6 98.2 98.0 Pulse 73 70 68 Resp 18 18 18 B/P 101/56 118/64 120/71 Pulse Ox 98 O2 Delivery Nasal Cannula Nasal Cannula Nasal Cannula Nasal Cannula O2 Flow Rate 2.0 2.0 2.0 2.0 05/03/16 05/04/16 05/04/16 05/04/16 23:45 00:30 01:30 07:00 Temp 98.3 97.9 97.8 98.2 98.3 97.9 97.8 98.2 Pulse 68 60 69 80 Resp 18 20 20 20 B/P 121/65 126/63 117/76 170/85 Pulse Ox 99 93 91 O2 Delivery Nasal Cannula Nasal Cannula Nasal Cannula Room Air O2 Flow Rate 2.0 2.0 2.0 05/04/16 05/04/16 08:00 11:00 Temp 98.1 98.1 Pulse 97 Resp 20 B/P 157/67 Pulse Ox 93 O2 Delivery Nasal Cannula Room Air O2 Flow Rate 2.0 Intake and Output 05/03/16 05/03/16 05/04/16 15:00 23:00 07:00 Intake Total 350 ml 120 ml Balance 350 ml 120 ml SELINA HEWITT MD May 04, 2016 12:47
[2016-05-04] MEDS: VITAMIN B12,B9,B6 COMPLEX 1 TABLET. PO SCH (13:29)
[2016-05-04] MEDS: MULTIVITAMIN with MINERAL TABLET. PO SCH (13:29)
--- NOTE | 2016-05-04 14:10 | PDOC ---
PROGRESS NOTES Subjective Subjective Problems overnight: Overall the left hip hurts less and he spent getting around a little better yesterday and this morning than previously. Underwent transfusion yesterday. Family reports that he is significantly confused with hallucinations and agitation Objective Vital Signs Vital Signs Date Time Temp Pulse Resp B/P Pulse Ox O2 Delivery O2 Flow Rate FiO2 05/04/16 11:00 98.1 97 20 157/67 93 Room Air 98.1 05/04/16 08:00 2.0 Physical Exam On exam his thigh is swollen no redness or erythema and no drainage. Leg lengths are equal no pain on weightbearing to an extended extremity he does have some pain and stiffness on the muscle rotation and other motion of the hip. He can readily plantar and dorsiflex ankle and toes distal neurovascular status intact. Thigh is swollen but not hard or any signs of compartment syndrome Labs Laboratory Tests Test 05/03/16 05:50 05/03/16 10:30 05/03/16 18:30 05/04/16 08:47 White Blood Count 5.5x10^3/uL (4.0-11.0) 5.1x10^3/uL (4.0-11.0) 4.9x10^3/uL (4.0-11.0) Red Blood Count 1.70x10^6/uL (4.30-5.70) 1.93x10^6/uL (4.30-5.70) 2.25x10^6/uL (4.30-5.70) Hemoglobin 5.9g/dL (13.0-17.5) 6.5g/dL (13.0-17.5) 7.5g/dL (13.0-17.5) Hematocrit 17.1% (39.0-53.0) 18.9% (39.0-53.0) 21.7% (39.0-53.0) Mean Corpuscular Volume 101fL (79-100) 98fL (79-100) 97fL (79-100) Mean Corpuscular Hemoglobin 35pg (25-35) 34pg (25-35) 34pg (25-35) Mean Corpuscular Hemoglobin Concent 34g/dL (31-37) 34g/dL (31-37) 35g/dL (31-37) Red Cell Distribution Width 13.3% (11.5-14.5) 14.5% (11.5-14.5) 14.6% (11.5-14.5) Platelet Count 82x10^3/uL (140-400) 71x10^3/uL (140-400) 84x10^3/uL (140-400) Neutrophils (%) (Auto) 75% (31-73) 85% (31-73) 69% (31-73) Lymphocytes (%) (Auto) 12% (24-48) 6% (24-48) 17% (24-48) Monocytes (%) (Auto) 13% (0-9) 9% (0-9) 12% (0-9) Eosinophils (%) (Auto) 0% (0-3) 0% (0-3) 1% (0-3) Basophils (%) (Auto) 0% (0-3) 0% (0-3) 0% (0-3) Neutrophils # (Auto) 4.1x10^3uL (1.8-7.7) 4.3x10^3uL (1.8-7.7) 3.4x10^3uL (1.8-7.7) Lymphocytes # (Auto) 0.7x10^3/uL (1.0-4.8) 0.3x10^3/uL (1.0-4.8) 0.9x10^3/uL (1.0-4.8) Monocytes # (Auto) 0.7x10^3/uL (0.0-1.1) 0.5x10^3/uL (0.0-1.1) 0.6x10^3/uL (0.0-1.1) Eosinophils # (Auto) 0.0x10^3/uL (0.0-0.7) 0.0x10^3/uL (0.0-0.7) 0.1x10^3/uL (0.0-0.7) Basophils # (Auto) 0.0x10^3/uL (0.0-0.2) 0.0x10^3/uL (0.0-0.2) 0.0x10^3/uL (0.0-0.2) Haptoglobin 120mg/dL (34-200) Sodium Level 142mmol/L (136-145) Potassium Level 3.4mmol/L (3.5-5.1) Chloride Level 106mmol/L (98-107) Carbon Dioxide Level 29mmol/L (21-32) Anion Gap 7 (6-14) Blood Urea Nitrogen 42mg/dL (8-26) Creatinine 1.1mg/dL (0.7-1.3) Estimated GFR (Cockcroft-Gault) 63.9 Glucose Level 122mg/dL (70-99) Calcium Level 8.2mg/dL (8.5-10.1) Magnesium Level 2.1mg/dL (1.8-2.4) Total Bilirubin 0.4mg/dL (0.2-1.0) Direct Bilirubin 0.1mg/dL (0.0-0.2) Aspartate Amino Transf (AST/SGOT) 23U/L (15-37) Alanine Aminotransferase (ALT/SGPT) 15U/L (16-63) Alkaline Phosphatase 45U/L (46-116) Lactate Dehydrogenase 122U/L (85-227) Total Protein 5.2g/dL (6.4-8.2) Albumin 3.0g/dL (3.4-5.0) Prothrombin Time 14.7SEC (11.7-14.0) Prothromb Time International Ratio 1.2 (0.8-1.1) Laboratory Tests Test 05/03/16 18:30 05/04/16 08:47 White Blood Count 5.1x10^3/uL (4.0-11.0) 4.9x10^3/uL (4.0-11.0) Red Blood Count 1.93x10^6/uL (4.30-5.70) 2.25x10^6/uL (4.30-5.70) Hemoglobin 6.5g/dL (13.0-17.5) 7.5g/dL (13.0-17.5) Hematocrit 18.9% (39.0-53.0) 21.7% (39.0-53.0) Mean Corpuscular Volume 98fL (79-100) 97fL (79-100) Mean Corpuscular Hemoglobin 34pg (25-35) 34pg (25-35) Mean Corpuscular Hemoglobin Concent 34g/dL (31-37) 35g/dL (31-37) Red Cell Distribution Width 14.5% (11.5-14.5) 14.6% (11.5-14.5) Platelet Count 71x10^3/uL (140-400) 84x10^3/uL (140-400) Neutrophils (%) (Auto) 85% (31-73) 69% (31-73) Lymphocytes (%) (Auto) 6% (24-48) 17% (24-48) Monocytes (%) (Auto) 9% (0-9) 12% (0-9) Eosinophils (%) (Auto) 0% (0-3) 1% (0-3) Basophils (%) (Auto) 0% (0-3) 0% (0-3) Neutrophils # (Auto) 4.3x10^3uL (1.8-7.7) 3.4x10^3uL (1.8-7.7) Lymphocytes # (Auto) 0.3x10^3/uL (1.0-4.8) 0.9x10^3/uL (1.0-4.8) Monocytes # (Auto) 0.5x10^3/uL (0.0-1.1) 0.6x10^3/uL (0.0-1.1) Eosinophils # (Auto) 0.0x10^3/uL (0.0-0.7) 0.1x10^3/uL (0.0-0.7) Basophils # (Auto) 0.0x10^3/uL (0.0-0.2) 0.0x10^3/uL (0.0-0.2) Assessment Assessment POD# [], S/P [ORIF left intertrochanteric hip fracture] Problems: Plan Plan of Care We'll check hemoglobin this afternoon Continue to mobilize partial weightbearing with physical therapy Had a long discussion with family about concerns with disorientation and hallucinations. He does not appear to have any neurologic deficit and therefore will observe. We also covered the fact that his nerves are working well there is no sign of compartment syndrome he does have a lot of swelling in the thigh where a significant amount of blood loss can occur with the fracture and postsurgically. May need additional transfusion if his hemoglobin and symptoms warrant it. No other obvious areas of blood loss but will monitor CRISTOBAL THOMPSON MD May 04, 2016 14:10
--- NOTE | 2016-05-04 14:11 | PDOC2 ---
GI CONSULT Date Date/Time DATE: 05/04/16 TIME: 14:03 Providers Attending Physician Oli Ruth MD Referring Physician Consulting Physician Dr. Menchaca History of Present Illness HPI 85 yo male- post hip fx and repair- post op anemia. Told before knee surgery last year he had mild anemia (hgb reported 10) but stable and did not require post op transfusion- he is unaware of other chronic anemia history. Describes good appetite, no n/v, heartburn, dyspepsia, melena, or hematochezia now or in past. Does have severe chronic constipation , taking Miralax, magnesium etc with only modest effect. Did have colonoscopy with Dr. Hdez last year- reported as negative. History Past Medical History prostate cancer 2016- radiation Past Surgical History total knee last year colonoscopy last year Past Surgical History: Total knee replacement Review of Systems Constitutional: yes: weakness Gastrointestinal: Yes: constipation Allergies Allergies Allergies Coded Allergies Type Severity Reaction Last Updated Verified No Known Drug Allergies 05/01/16 No Medications Medications Current Medications Fentanyl Citrate (Fentanyl 2ml Vial) 50 mcg PRN Q15MIN PRN IV PAIN GREATER THAN 3/10 Last administered on 05/01/16 18:41; Start 05/01/16 at 18:00; Stop 12/09 at 17:59; Status DC Ondansetron HCl (Zofran) 4 mg 1X ONCE IV Last administered on 05/01/16 18:10; Start 05/01/16 at 18:00; Stop 05/01/16 at 18:01; Status DC Ondansetron HCl (Zofran) 4 mg PRN Q8HRS PRN IV NAUSEA/VOMITING Last administered on 05/01/16 21:04; Start 05/01/16 at 18:15; Stop 05/02/16 at 18:14; Status DC Fentanyl Citrate (Fentanyl 2ml Vial) 50 mcg PRN Q2HR PRN IV PAIN Last administered on 05/02/16 12:12; Start 05/01/16 at 18:15; Stop 05/02/16 at 18:14 ; Status DC Acetaminophen (Tylenol) 650 mg PRN Q4HRS PRN PO FEVER; Start 05/01/16 at 18:15; Stop 05/02/16 at 18:14; Status DC Acetaminophen (Tylenol) 650 mg PRN Q6HRS PRN PO FEVER Last administered on 05/03 22:09; Start 05/01/16 at 18:45 Ondansetron HCl (Zofran) 4 mg PRN Q6HRS PRN IV NAUSEA; Start 05/01/16 at 18:45 Oxycodone/ Acetaminophen 1 tab 1 tab PRN Q6HRS PRN PO PAIN Last administered on 05/03/16 08:52; Start 05/01/16 at 18:45 Propofol (Diprivan) 20 ml @ As Directed STK-MED ONCE IV ; Start 05/01/16 at 19:01 ; Stop 05/01/16 at 19:02; Status DC Lidocaine HCl 100 mg STK-MED ONCE .ROUTE ; Start 05/01/16 at 19:02; Stop 05/01/16 at 19:03; Status DC Phenylephrine HCl 1 mg STK-MED ONCE IV ; Start 05/01/16 at 19:02; Stop 05/01/16 at 19:03; Status DC Ephedrine Sulfate 50 mg STK-MED ONCE IV ; Start 05/01/16 at 19:02; Stop 05/01/16 at 19:03; Status DC Dexamethasone Sodium Phosphate (Decadron) 20 mg STK-MED ONCE .ROUTE ; Start 05/01 at 19:02; Stop 05/01/16 at 19:03; Status DC Ondansetron HCl (Zofran) 4 mg STK-MED ONCE .ROUTE ; Start 05/01/16 at 19:02; Stop 05/01/16 at 19:03; Status DC Ondansetron HCl (Zofran) 4 mg PRN Q6HRS PRN IV Nausea; Start 05/01/16 at 20:30; Stop 05/02/16 at 20:29; Status DC Fentanyl Citrate (Fentanyl 2ml Vial) 25 mcg PRN Q5MIN PRN IV MILD PAIN; Start 05/01/16 at 20:30; Stop 05/02/16 at 20:29; Status DC Fentanyl Citrate (Fentanyl 2ml Vial) 50 mcg PRN Q5MIN PRN IV MODERATE PAIN; Start 05/01/16 at 20:30; Stop 05/02/16 at 20:29; Status DC Morphine Sulfate 1 mg 1 mg PRN Q10MIN PRN IV SEVERE PAIN Last administered on 3 /10/17at 00:08; Start 05/01/16 at 20:30; Stop 05/02/16 at 20:29; Status DC Lactated Ringer's (Iv Lactated Ringers) 1,000 ml @ 0 mls/hr Q0M IV ; Start 05/01 at 20:20; Stop 05/02/16 at 08:19; Status DC Lidocaine HCl 2 ml 1X PRN PRN ID IV START; Start 05/01/16 at 20:30; Stop at 20:29; Status DC Hydromorphone HCl (Dilaudid) 0.5 mg PRN Q10MIN PRN IV SEV PAIN,Second choice Last administered on 05/01/16t 23:59; Start 05/01/16 at 20:30; Stop 05/02/16 at 20 :29; Status DC Prochlorperazine Edisylate (Compazine) 5 mg PACU PRN PRN IV NAUSEA Last administered on 05/01/16t 23:40; Start 05/01/16 at 20:30; Stop 05/02/16 at 20:29; Status DC Zolpidem Tartrate 5 mg 5 mg PRN QHS PRN PO INSOMNIA; Start 05/01/16 at 21:15; Stop 05/01/16 at 21:20; Status DC Cefazolin Sodium/ Dextrose (Ancef 2gm Premix) 50 ml @ As Directed STK-MED ONCE IV ; Start 05/01/16 at 21:30; Stop 05/01/16 at 21:31; Status DC Fentanyl Citrate (Fentanyl 2ml Vial) 100 mcg STK-MED ONCE .ROUTE ; Start at 21:37; Stop 05/01/16 at 21:38; Status DC Fentanyl Citrate (Fentanyl 2ml Vial) 100 mcg STK-MED ONCE .ROUTE ; Start at 22:25; Stop 05/01/16 at 22:26; Status DC Sevoflurane (Ultane) 60 ml STK-MED ONCE IH ; Start 05/01/16 at 22:50; Stop at 22:51; Status DC Aspirin (Children'S Aspirin) 81 mg DAILY PO Last administered on 05/04/16 09: 38; Start 05/02/16 at 09:00 Atorvastatin Calcium (Lipitor) 40 mg HS PO Last administered on 05/03/16 22:53 ; Start 05/02/16 at 21:00 Escitalopram Oxalate (Lexapro) 10 mg DAILY PO Last administered on 05/04/16 09 :36; Start 05/02/16 at 09:00 Lisinopril (Prinivil) 20 mg DAILY PO Last administered on 05/03/16 08:54; Start 05/02/16 at 09:00 Polyethylene Glycol (miraLAX PACKET) 17 gm DAILY PO Last administered on 09:38; Start 05/02/16 at 09:00 Sennosides (Senna) 8.6 mg DAILY PO Last administered on 05/04/16 09:36; Start 05/02/16 at 09:00 Acetaminophen/ Hydrocodone Bitart (Lortab 5/325) 1 tab PRN Q4HRS PRN PO PAIN Last administered on 05/04/16 09:37; Start 05/02/16 at 08:00 Ferrous Sulfate (Feosol) 325 mg DAILYWBKFT PO Last administered on 05/04/16 09 :37; Start 05/02/16 at 09:00 Fentanyl Citrate 50 mcg 50 mcg PRN Q2HR PRN IV PAIN SEV Last administered on 09:02; Start 05/02/16 at 20:45 Sodium Chloride (Iv Sodium Chloride 0.9% 1000ml Bag) 1,000 ml @ 125 mls/hr CONT PRN IV I/O Last administered on 05/03/16 03:49; Start 05/02/16 at 20:45; Stop 05/03/16 at 19:35; Status DC Potassium Chloride (Klor-Con) 40 meq 1X ONCE PO Last administered on 16:09; Start 05/03/16 at 10:00; Stop 05/03/16 at 10:01; Status DC Vitamin D (Vitamin D3) 5,000 unit DAILY PO Last administered on 05/04/16 09:37 ; Start 05/03/16 at 14:00 Diphenhydramine HCl (Benadryl) 25 mg 1X ONCE IV ; Start 05/03/16 at 15:30; Stop 05/03/16 at 15:30; Status DC Hydrocortisone Sodium Succinate (Solu-Cortef) 100 mg 1X ONCE IV Last administered on 05/03/16 15:43; Start 05/03/16 at 15:30; Stop 05/03/16 at 15:31 ; Status DC Diphenhydramine HCl (Benadryl) 25 mg 1X ONCE PO Last administered on 15:42; Start 05/03/16 at 15:30; Stop 05/03/16 at 15:31; Status DC Acetaminophen (Tylenol) 650 mg 1X ONCE PO Last administered on 05/03/16 15:42 ; Start 05/03/16 at 15:30; Stop 05/03/16 at 15:31; Status DC Diphenhydramine HCl (Benadryl) 25 mg 1X ONCE IVP Last administered on 22:08; Start 05/03/16 at 22:00; Stop 05/03/16 at 22:01; Status DC Cyanocobalamin (Vitamin B-12) 1,000 mcg 1X ONCE IM Last administered on 13:28; Start 05/04/16 at 11:00; Stop 05/04/16 at 11:01; Status DC Vitamin B Complex (Folbic Tablet) 1 tab DAILY PO Last administered on 13:29; Start 05/04/16 at 10:15 Multivitamins (Thera M Plus) 1 tab DAILY PO Last administered on 05/04/16 13: 29; Start 05/04/16 at 11:00 Methylnaltrexone [place] (Relistor) 12 mg 1X ONCE SQ ; Start 05/04/16 at 14:15 ; Stop 05/04/16 at 14:16; Status UNV Active Scripts Active Reported Betimol (Timolol) 5 Ml Drops 5 Ml OP Simbrinza 1%-0.2% Eye Drops (Brinzolamide/Brimonid Tart) 8 Ml Drops.susp 8 Ml OP Senokot (Sennosides) 8.6 Mg Tablet 8.6 Mg PO Miralax (Polyethylene Glycol 3350) 17 Gm Powd.pack 1 Pkt PO DAILY Lisinopril 20 Mg Tablet 20 Mg AD DAILY Escitalopram Oxalate 10 Mg Tablet 10 Mg PO DAILY Atorvastatin Calcium 40 Mg Tablet 40 Mg PO HS Myrbetriq (Mirabegron) 50 Mg Tab.er.24h 50 Mg PO Aspirin 81 Mg Tab.chew 81 Mg PO Physical Exam Physical Exam VSS chest- clear cor- RRR abd- soft non tender no masses, good bowel sounds extrem- post op hip neuro- non focal- a little confused on history- rambles but otherwise appears appropriate Labs Labs Laboratory Tests Test 05/03/16 18:30 05/04/16 08:47 White Blood Count 5.1x10^3/uL (4.0-11.0) 4.9x10^3/uL (4.0-11.0) Red Blood Count 1.93x10^6/uL (4.30-5.70) 2.25x10^6/uL (4.30-5.70) Hemoglobin 6.5g/dL (13.0-17.5) 7.5g/dL (13.0-17.5) Hematocrit 18.9% (39.0-53.0) 21.7% (39.0-53.0) Mean Corpuscular Volume 98fL (79-100) 97fL (79-100) Mean Corpuscular Hemoglobin 34pg (25-35) 34pg (25-35) Mean Corpuscular Hemoglobin Concent 34g/dL (31-37) 35g/dL (31-37) Red Cell Distribution Width 14.5% (11.5-14.5) 14.6% (11.5-14.5) Platelet Count 71x10^3/uL (140-400) 84x10^3/uL (140-400) Neutrophils (%) (Auto) 85% (31-73) 69% (31-73) Lymphocytes (%) (Auto) 6% (24-48) 17% (24-48) Monocytes (%) (Auto) 9% (0-9) 12% (0-9) Eosinophils (%) (Auto) 0% (0-3) 1% (0-3) Basophils (%) (Auto) 0% (0-3) 0% (0-3) Neutrophils # (Auto) 4.3x10^3uL (1.8-7.7) 3.4x10^3uL (1.8-7.7) Lymphocytes # (Auto) 0.3x10^3/uL (1.0-4.8) 0.9x10^3/uL (1.0-4.8) Monocytes # (Auto) 0.5x10^3/uL (0.0-1.1) 0.6x10^3/uL (0.0-1.1) Eosinophils # (Auto) 0.0x10^3/uL (0.0-0.7) 0.1x10^3/uL (0.0-0.7) Basophils # (Auto) 0.0x10^3/uL (0.0-0.2) 0.0x10^3/uL (0.0-0.2) Assessment Assessment Anemia- most likely tissue lost due to fx and surgery- did have mild anemia in past- cause? but fortunately had negative colonoscopy last year- by report- mild increase in BUN likely nonspecific - will chekc stool for blood once we get constipation treated Chronic constipation- worse now post op- Problems: Plan Plan treat constipation- relistor now and prn mag citrate with daily miralax check stool for blood due to lack of other GI symptoms, further GI testing on hold PPI empirically Thank you for allowing us to participate in the care of your patient. We will continue to follow the patient with you and provide an appropriate recommendation as it becomes available. MAREN MENCHACA MD May 04, 2016 14:11
[2016-05-04] MEDS ORDERED: MAGNESIUM CITRATE 296 ML SOLUTION. PO PRN (14:15)
[2016-05-04] MEDS ORDERED: METHYLNALTREXONE 12 MG/0.6 ML VIAL. SQ ONE (14:45)
[2016-05-04] MEDS: PANTOPRAZOLE 40 MG TABLET. PO SCH (15:17)
--- NOTE | 2016-05-04 15:30 | PDOC2 ---
CONSULT Date of Consult Date of Consult DATE: 05/04/16 TIME: 15:19 Reason for Consult Reason for Consult: Anemia Thrombocytopenia Referring Physician Referring Physician: Dwight Identification/Chief Complaint Chief Complaint Hip fracture Source Source: Caregiver, Chart review, Patient History of Present Illness Reason for Visit: 85yo h/o recurrent locally advanced prostate cancer. On Lupron for "several years" stopped in 2012. Developed recurrent disease in Fall 2015. Staging showed regional disease only. Started Lupron/XRT in January 2016 and just completed 3 weeks ago. Fell getting out of a sauna day of admission, slipping on wet floor. Fractured hip and underwent surgery. Was told that was anemic in 09/2015 and has known of it "for years." No bruising, bleeding, frequent infections. No known prior platelet problems. Recovering and main complaints today are ambulation and confusion. Past Medical History Cardiovascular: HTN Heme/Onc: Cancer (Prostate cancer) Renal/: Prostate Ca. Past Surgical History Past Surgical History: Total knee replacement Family History Family History: No Significant Social History No ALCOHOL: none Drugs: None Current Problem List Problem List Problems Medical Problems: (1) Closed left femoral fracture Status: Acute (2) Femur fracture, left Status: Acute Current Medications Current Medications Current Medications Fentanyl Citrate (Fentanyl 2ml Vial) 50 mcg PRN Q15MIN PRN IV PAIN GREATER THAN 3/10 Last administered on 05/01/16 18:41; Start 05/01/16 at 18:00; Stop 12/09 at 17:59; Status DC Ondansetron HCl (Zofran) 4 mg 1X ONCE IV Last administered on 05/01/16 18:10; Start 05/01/16 at 18:00; Stop 05/01/16 at 18:01; Status DC Ondansetron HCl (Zofran) 4 mg PRN Q8HRS PRN IV NAUSEA/VOMITING Last administered on 05/01/16 21:04; Start 05/01/16 at 18:15; Stop 05/02/16 at 18:14; Status DC Fentanyl Citrate (Fentanyl 2ml Vial) 50 mcg PRN Q2HR PRN IV PAIN Last administered on 05/02/16 12:12; Start 05/01/16 at 18:15; Stop 05/02/16 at 18:14 ; Status DC Acetaminophen (Tylenol) 650 mg PRN Q4HRS PRN PO FEVER; Start 05/01/16 at 18:15; Stop 05/02/16 at 18:14; Status DC Acetaminophen (Tylenol) 650 mg PRN Q6HRS PRN PO FEVER Last administered on 05/03 22:09; Start 05/01/16 at 18:45 Ondansetron HCl (Zofran) 4 mg PRN Q6HRS PRN IV NAUSEA; Start 05/01/16 at 18:45 Oxycodone/ Acetaminophen 1 tab 1 tab PRN Q6HRS PRN PO PAIN Last administered on 05/03/16 08:52; Start 05/01/16 at 18:45 Propofol (Diprivan) 20 ml @ As Directed STK-MED ONCE IV ; Start 05/01/16 at 19:01 ; Stop 05/01/16 at 19:02; Status DC Lidocaine HCl 100 mg STK-MED ONCE .ROUTE ; Start 05/01/16 at 19:02; Stop 05/01/16 at 19:03; Status DC Phenylephrine HCl 1 mg STK-MED ONCE IV ; Start 05/01/16 at 19:02; Stop 05/01/16 at 19:03; Status DC Ephedrine Sulfate 50 mg STK-MED ONCE IV ; Start 05/01/16 at 19:02; Stop 05/01/16 at 19:03; Status DC Dexamethasone Sodium Phosphate (Decadron) 20 mg STK-MED ONCE .ROUTE ; Start 05/01 at 19:02; Stop 05/01/16 at 19:03; Status DC Ondansetron HCl (Zofran) 4 mg STK-MED ONCE .ROUTE ; Start 05/01/16 at 19:02; Stop 05/01/16 at 19:03; Status DC Ondansetron HCl (Zofran) 4 mg PRN Q6HRS PRN IV Nausea; Start 05/01/16 at 20:30; Stop 05/02/16 at 20:29; Status DC Fentanyl Citrate (Fentanyl 2ml Vial) 25 mcg PRN Q5MIN PRN IV MILD PAIN; Start 05/01/16 at 20:30; Stop 05/02/16 at 20:29; Status DC Fentanyl Citrate (Fentanyl 2ml Vial) 50 mcg PRN Q5MIN PRN IV MODERATE PAIN; Start 05/01/16 at 20:30; Stop 05/02/16 at 20:29; Status DC Morphine Sulfate 1 mg 1 mg PRN Q10MIN PRN IV SEVERE PAIN Last administered on 00:08; Start 05/01/16 at 20:30; Stop 05/02/16 at 20:29; Status DC Lactated Ringer's (Iv Lactated Ringers) 1,000 ml @ 0 mls/hr Q0M IV ; Start 05/01 at 20:20; Stop 05/02/16 at 08:19; Status DC Lidocaine HCl 2 ml 1X PRN PRN ID IV START; Start 05/01/16 at 20:30; Stop at 20:29; Status DC Hydromorphone HCl (Dilaudid) 0.5 mg PRN Q10MIN PRN IV SEV PAIN,Second choice Last administered on 05/01/16 23:59; Start 05/01/16 at 20:30; Stop 05/02/16 at 20 :29; Status DC Prochlorperazine Edisylate (Compazine) 5 mg PACU PRN PRN IV NAUSEA Last administered on 05/01/16 23:40; Start 05/01/16 at 20:30; Stop 05/02/16 at 20:29; Status DC Zolpidem Tartrate 5 mg 5 mg PRN QHS PRN PO INSOMNIA; Start 05/01/16 at 21:15; Stop 05/01/16 at 21:20; Status DC Cefazolin Sodium/ Dextrose (Ancef 2gm Premix) 50 ml @ As Directed STK-MED ONCE IV ; Start 05/01/16 at 21:30; Stop 05/01/16 at 21:31; Status DC Fentanyl Citrate (Fentanyl 2ml Vial) 100 mcg STK-MED ONCE .ROUTE ; Start at 21:37; Stop 05/01/16 at 21:38; Status DC Fentanyl Citrate (Fentanyl 2ml Vial) 100 mcg STK-MED ONCE .ROUTE ; Start at 22:25; Stop 05/01/16 at 22:26; Status DC Sevoflurane (Ultane) 60 ml STK-MED ONCE IH ; Start 05/01/16 at 22:50; Stop at 22:51; Status DC Aspirin (Children'S Aspirin) 81 mg DAILY PO Last administered on 05/04/16 09: 38; Start 05/02/16 at 09:00 Atorvastatin Calcium (Lipitor) 40 mg HS PO Last administered on 05/03/16 22:53 ; Start 05/02/16 at 21:00 Escitalopram Oxalate (Lexapro) 10 mg DAILY PO Last administered on 05/04/16 09 :36; Start 05/02/16 at 09:00 Lisinopril (Prinivil) 20 mg DAILY PO Last administered on 05/03/16 08:54; Start 05/02/16 at 09:00 Polyethylene Glycol (miraLAX PACKET) 17 gm DAILY PO Last administered on 09:38; Start 05/02/16 at 09:00 Sennosides (Senna) 8.6 mg DAILY PO Last administered on 05/04/16 09:36; Start 05/02/16 at 09:00 Acetaminophen/ Hydrocodone Bitart (Lortab 5/325) 1 tab PRN Q4HRS PRN PO PAIN Last administered on 05/04/16 14:54; Start 05/02/16 at 08:00 Ferrous Sulfate (Feosol) 325 mg DAILYWBKFT PO Last administered on 05/04/16 09 :37; Start 05/02/16 at 09:00 Fentanyl Citrate 50 mcg 50 mcg PRN Q2HR PRN IV PAIN SEV Last administered on 09:02; Start 05/02/16 at 20:45 Sodium Chloride (Iv Sodium Chloride 0.9% 1000ml Bag) 1,000 ml @ 125 mls/hr CONT PRN IV I/O Last administered on 05/03/16 03:49; Start 05/02/16 at 20:45; Stop 05/03/16 at 19:35; Status DC Potassium Chloride (Klor-Con) 40 meq 1X ONCE PO Last administered on 16:09; Start 05/03/16 at 10:00; Stop 05/03/16 at 10:01; Status DC Vitamin D (Vitamin D3) 5,000 unit DAILY PO Last administered on 05/04/16 09:37 ; Start 05/03/16 at 14:00 Diphenhydramine HCl (Benadryl) 25 mg 1X ONCE IV ; Start 05/03/16 at 15:30; Stop 05/03/16 at 15:30; Status DC Hydrocortisone Sodium Succinate (Solu-Cortef) 100 mg 1X ONCE IV Last administered on 05/03/16 15:43; Start 05/03/16 at 15:30; Stop 05/03/16 at 15:31 ; Status DC Diphenhydramine HCl (Benadryl) 25 mg 1X ONCE PO Last administered on 15:42; Start 05/03/16 at 15:30; Stop 05/03/16 at 15:31; Status DC Acetaminophen (Tylenol) 650 mg 1X ONCE PO Last administered on 05/03/16 15:42 ; Start 05/03/16 at 15:30; Stop 05/03/16 at 15:31; Status DC Diphenhydramine HCl (Benadryl) 25 mg 1X ONCE IVP Last administered on 22:08; Start 05/03/16 at 22:00; Stop 05/03/16 at 22:01; Status DC Cyanocobalamin (Vitamin B-12) 1,000 mcg 1X ONCE IM Last administered on 13:28; Start 05/04/16 at 11:00; Stop 05/04/16 at 11:01; Status DC Vitamin B Complex (Folbic Tablet) 1 tab DAILY PO Last administered on 13:29; Start 05/04/16 at 10:15 Multivitamins (Thera M Plus) 1 tab DAILY PO Last administered on 05/04/16 13: 29; Start 05/04/16 at 11:00 Methylnaltrexone [place] (Relistor) 12 mg 1X ONCE SQ Last administered on 05/04 14:52; Start 05/04/16 at 14:45; Stop 05/04/16 at 14:46; Status DC Magnesium Citrate (Citroma) 296 ml PRN 1X PRN PO CONSTIPATION; Start 05/04/16 at 14:15 Pantoprazole Sodium (Protonix) 40 mg DAILYAC PO Last administered on 05/04/16 15:17; Start 05/04/16 at 15:00 Active Scripts Active Reported Betimol (Timolol) 5 Ml Drops 5 Ml OP Simbrinza 1%-0.2% Eye Drops (Brinzolamide/Brimonid Tart) 8 Ml Drops.susp 8 Ml OP Senokot (Sennosides) 8.6 Mg Tablet 8.6 Mg PO Miralax (Polyethylene Glycol 3350) 17 Gm Powd.pack 1 Pkt PO DAILY Lisinopril 20 Mg Tablet 20 Mg AD DAILY Escitalopram Oxalate 10 Mg Tablet 10 Mg PO DAILY Atorvastatin Calcium 40 Mg Tablet 40 Mg PO HS Myrbetriq (Mirabegron) 50 Mg Tab.er.24h 50 Mg PO Aspirin 81 Mg Tab.chew 81 Mg PO Allergies Allergies: Coded Allergies: No Known Drug Allergies (Unverified , 05/01/16) ROS General: YES: Fatigue, No: Chills PSYCHOLOGICAL ROS: YES: Disorientation Eyes: No Decreased vision HEENT: No: Heacaches Hematological and Lymphatic: No: Bleeding Problems, Blood Clots Respiratory: No: Cough Cardiovascular: No Chest Pain Gastrointestinal: No Nausea Genitourinary: No Retention Musculoskeletal: Yes Gait Disturbance, Yes Joint Pain Neurological: Yes Behavorial Changes Skin: No Rash Physical Exam General: Alert, Other (Slow to respond, but appropriate and knows he is disoriented) HEENT: Atraumatic Lungs: Clear to auscultation Heart: Regular rate Abdomen: Soft, No tenderness Extremities: No clubbing Skin: No rashes Neuro: Normal speech Psych/Mental Status: Mood NL MUSCULOSKELETAL: Other (s/p hip fracture repair) Vitals VITALS Vital Signs Date Time Temp Pulse Resp B/P Pulse Ox O2 Delivery O2 Flow Rate FiO2 05/04/16 11:00 98.1 97 20 157/67 93 Room Air 98.1 05/04/16 08:00 2.0 Labs Labs Laboratory Tests Test 05/03/16 05:50 05/03/16 10:30 05/03/16 18:30 05/04/16 08:47 White Blood Count 5.5x10^3/uL (4.0-11.0) 5.1x10^3/uL (4.0-11.0) 4.9x10^3/uL (4.0-11.0) Red Blood Count 1.70x10^6/uL (4.30-5.70) 1.93x10^6/uL (4.30-5.70) 2.25x10^6/uL (4.30-5.70) Hemoglobin 5.9g/dL (13.0-17.5) 6.5g/dL (13.0-17.5) 7.5g/dL (13.0-17.5) Hematocrit 17.1% (39.0-53.0) 18.9% (39.0-53.0) 21.7% (39.0-53.0) Mean Corpuscular Volume 101fL (79-100) 98fL (79-100) 97fL (79-100) Mean Corpuscular Hemoglobin 35pg (25-35) 34pg (25-35) 34pg (25-35) Mean Corpuscular Hemoglobin Concent 34g/dL (31-37) 34g/dL (31-37) 35g/dL (31-37) Red Cell Distribution Width 13.3% (11.5-14.5) 14.5% (11.5-14.5) 14.6% (11.5-14.5) Platelet Count 82x10^3/uL (140-400) 71x10^3/uL (140-400) 84x10^3/uL (140-400) Neutrophils (%) (Auto) 75% (31-73) 85% (31-73) 69% (31-73) Lymphocytes (%) (Auto) 12% (24-48) 6% (24-48) 17% (24-48) Monocytes (%) (Auto) 13% (0-9) 9% (0-9) 12% (0-9) Eosinophils (%) (Auto) 0% (0-3) 0% (0-3) 1% (0-3) Basophils (%) (Auto) 0% (0-3) 0% (0-3) 0% (0-3) Neutrophils # (Auto) 4.1x10^3uL (1.8-7.7) 4.3x10^3uL (1.8-7.7) 3.4x10^3uL (1.8-7.7) Lymphocytes # (Auto) 0.7x10^3/uL (1.0-4.8) 0.3x10^3/uL (1.0-4.8) 0.9x10^3/uL (1.0-4.8) Monocytes # (Auto) 0.7x10^3/uL (0.0-1.1) 0.5x10^3/uL (0.0-1.1) 0.6x10^3/uL (0.0-1.1) Eosinophils # (Auto) 0.0x10^3/uL (0.0-0.7) 0.0x10^3/uL (0.0-0.7) 0.1x10^3/uL (0.0-0.7) Basophils # (Auto) 0.0x10^3/uL (0.0-0.2) 0.0x10^3/uL (0.0-0.2) 0.0x10^3/uL (0.0-0.2) Haptoglobin 120mg/dL (34-200) Sodium Level 142mmol/L (136-145) Potassium Level 3.4mmol/L (3.5-5.1) Chloride Level 106mmol/L (98-107) Carbon Dioxide Level 29mmol/L (21-32) Anion Gap 7 (6-14) Blood Urea Nitrogen 42mg/dL (8-26) Creatinine 1.1mg/dL (0.7-1.3) Estimated GFR (Cockcroft-Gault) 63.9 Glucose Level 122mg/dL (70-99) Calcium Level 8.2mg/dL (8.5-10.1) Magnesium Level 2.1mg/dL (1.8-2.4) Total Bilirubin 0.4mg/dL (0.2-1.0) Direct Bilirubin 0.1mg/dL (0.0-0.2) Aspartate Amino Transf (AST/SGOT) 23U/L (15-37) Alanine Aminotransferase (ALT/SGPT) 15U/L (16-63) Alkaline Phosphatase 45U/L (46-116) Lactate Dehydrogenase 122U/L (85-227) Total Protein 5.2g/dL (6.4-8.2) Albumin 3.0g/dL (3.4-5.0) Prothrombin Time 14.7SEC (11.7-14.0) Prothromb Time International Ratio 1.2 (0.8-1.1) Laboratory Tests Test 05/03/16 18:30 05/04/16 08:47 White Blood Count 5.1x10^3/uL (4.0-11.0) 4.9x10^3/uL (4.0-11.0) Red Blood Count 1.93x10^6/uL (4.30-5.70) 2.25x10^6/uL (4.30-5.70) Hemoglobin 6.5g/dL (13.0-17.5) 7.5g/dL (13.0-17.5) Hematocrit 18.9% (39.0-53.0) 21.7% (39.0-53.0) Mean Corpuscular Volume 98fL (79-100) 97fL (79-100) Mean Corpuscular Hemoglobin 34pg (25-35) 34pg (25-35) Mean Corpuscular Hemoglobin Concent 34g/dL (31-37) 35g/dL (31-37) Red Cell Distribution Width 14.5% (11.5-14.5) 14.6% (11.5-14.5) Platelet Count 71x10^3/uL (140-400) 84x10^3/uL (140-400) Neutrophils (%) (Auto) 85% (31-73) 69% (31-73) Lymphocytes (%) (Auto) 6% (24-48) 17% (24-48) Monocytes (%) (Auto) 9% (0-9) 12% (0-9) Eosinophils (%) (Auto) 0% (0-3) 1% (0-3) Basophils (%) (Auto) 0% (0-3) 0% (0-3) Neutrophils # (Auto) 4.3x10^3uL (1.8-7.7) 3.4x10^3uL (1.8-7.7) Lymphocytes # (Auto) 0.3x10^3/uL (1.0-4.8) 0.9x10^3/uL (1.0-4.8) Monocytes # (Auto) 0.5x10^3/uL (0.0-1.1) 0.6x10^3/uL (0.0-1.1) Eosinophils # (Auto) 0.0x10^3/uL (0.0-0.7) 0.1x10^3/uL (0.0-0.7) Basophils # (Auto) 0.0x10^3/uL (0.0-0.2) 0.0x10^3/uL (0.0-0.2) Assessment/Plan Assessment/Plan Impression: - Macrocytic anemia - Thrombocytopenia - Locally advanced prostate cancer on Lupron with XRT completed 3 weeks ago - Recent hip fracture, mechanical, s/p repair - [facility] Recommend: His blood abnormalities are multifactorial. Blood loss from surgery and radiation to the pelvis both associated with decline in counts. Macrocytosis and prior long-standing mild anemia are suspicious for underlying process, possible vitamin deficiency or MDS. Recommend trending his counts, checking SPEP and following up B12/folate. If these normal and counts fail to improve, would likely need bone marrow biopsy. Not uncommonly a smoldering low grade MDS can be exacerbated by radiation therapy or a round of chemotherapy. Dr Simeon will take over tomorrow and follow up work-up above. He will need some hematologic follow up as outpatient. THELMA MOLINA MD May 04, 2016 15:30
[2016-05-04 16:18] LABS: RED BLOOD COUNT 2.06 x10^6/uL (4.30-5.70); RED CELL DISTRIBUTION WIDTH 14.6 % (11.5-14.5); WHITE BLOOD COUNT 4.9 x10^3/uL (4.0-11.0)
[2016-05-04 16:24] LABS: HEMOGLOBIN 6.8 g/dL (13.0-17.5)
[2016-05-04] MEDS: ATORVASTATIN CALCIUM 40 MG TABLET. PO SCH (22:11)
[2016-05-05] VITALS (10 sets, daily range): BP systolic 127–186; BP diastolic 73–112
[2016-05-05] MEDS: HYDROCODONE/APAP 5/325MG TABLET. PO PRN ×2 (02:09→08:50)
[2016-05-05] MEDS: POLYETHYLENE GLYCOL 3350 17 GM PACKET. PO SCH (08:43)
[2016-05-05] MEDS: ESCITALOPRAM 10 MG TABLET. PO SCH (08:43)
[2016-05-05] MEDS: VITAMIN B12,B9,B6 COMPLEX 1 TABLET. PO SCH (08:43)
[2016-05-05] MEDS: SENNOSIDES 8.6 MG TABLET PO SCH (08:43)
[2016-05-05] MEDS: FERROUS SULFATE 325 MG TABLET PO SCH (08:43)
[2016-05-05] MEDS: MULTIVITAMIN with MINERAL TABLET. PO SCH (08:43)
[2016-05-05] MEDS: CHOLECALCIFEROL (VITAMIN D3) 5,000 UNIT CAPSULE PO SCH (08:43)
[2016-05-05] MEDS: PANTOPRAZOLE 40 MG TABLET. PO SCH (08:43)
[2016-05-05] MEDS: ASPIRIN 81 MG TAB.CHEW PO SCH (09:00)
[2016-05-05] MEDS: LISINOPRIL 20 MG TABLET PO SCH ×2 (09:00→11:41)
[2016-05-05 09:28] LABS: HEMOGLOBIN 9.4 g/dL (13.0-17.5); RED BLOOD COUNT 2.87 x10^6/uL (4.30-5.70); RED CELL DISTRIBUTION WIDTH 16.1 % (11.5-14.5)
[2016-05-05 09:34] LABS: BILIRUBIN,URINE NEGATIVE (NEG); GLUCOSE,URINE NEGATIVE (NEG); NITRITE,URINE NEGATIVE (NEG); PROTEIN,URINE NEGATIVE (NEG-TRACE); UROBILINOGEN,URINE 0.2 mg/dL (0.2 mg/dL)
[2016-05-05 09:51] LABS: BACTERIA,URINE 0 /HPF (0-FEW); SQUAMOUS EPITHELIAL CELL,UR FEW /LPF; WBC,URINE 0 /HPF (0-4)
[2016-05-05 10:33] LABS: FOLATE 10.1 ng/ml (3.2-20.0)
[2016-05-05] MEDS: OXYCODONE/APAP 5/325 TABLET. PO PRN ×2 (11:42→23:07)
--- NOTE | 2016-05-05 11:50 | PDOC ---
PROGRESS NOTES Chief Complaint Chief Complaint 1. traumatic left hip fracture post fall, s/p ORIF for left hip fx on 05/01 2. htn, benign 3. prostate CA, s/p radiation 4. acute anemia, expected post surgery, improved with transfusion 5. mild encephalopathy, post-op, pain and pain meds History of Present Illness History of Present Illness Patient sitting up in chair with family in the room when evaluated this AM. Appears to be in no acute distress, and without any new complaints. Continues to be slow to respond, but is appropriate. Family reports that he has been showing improved cognition today. Hgb has responded well to transfusion; now 9.4 from 6.8. Family lives in [place], and they plan to have the pt receive usp care at [place]. Vitals Vitals Vital Signs Date Time Temp Pulse Resp B/P Pulse Ox O2 Delivery O2 Flow Rate FiO2 05/05/16 11:00 98.8 75 18 186/112 96 Room Air 98.8 05/04/16 20:00 2.0 Physical Exam General: Alert, Other (Slow to respond, but appropriate) Heart: Regular rate Lungs: Clear Abdomen: Soft, No tenderness Extremities: No clubbing, Other (surgical dressings clean, dry, intact) Skin: No rashes Labs LABS Laboratory Tests Test 05/04/16 16:00 05/05/16 07:30 05/05/16 08:55 White Blood Count 4.9x10^3/uL (4.0-11.0) 5.0x10^3/uL (4.0-11.0) Red Blood Count 2.06x10^6/uL (4.30-5.70) 2.87x10^6/uL (4.30-5.70) Hemoglobin 6.8g/dL (13.0-17.5) 9.4g/dL (13.0-17.5) Hematocrit 20.1% (39.0-53.0) 27.0% (39.0-53.0) Mean Corpuscular Volume 98fL (79-100) 94fL (79-100) Mean Corpuscular Hemoglobin 33pg (25-35) 33pg (25-35) Mean Corpuscular Hemoglobin Concent 34g/dL (31-37) 35g/dL (31-37) Red Cell Distribution Width 14.6% (11.5-14.5) 16.1% (11.5-14.5) Platelet Count 79x10^3/uL (140-400) 92x10^3/uL (140-400) Urine Collection Type Unknown Urine Color Yellow Urine Clarity Clear Urine pH 8.0 Urine Specific [place] 1.010 Urine Protein Negativemg/dL (NEG-TRACE) Urine Glucose (UA) Negativemg/dL (NEG) Urine Ketones (Stick) Negativemg/dL (NEG) Urine Blood Moderate (NEG) Urine Nitrite Negative (NEG) Urine Bilirubin Negative (NEG) Urine Urobilinogen Dipstick 0.2mg/dL (0.2 mg/dL) Urine Leukocyte Esterase Negative (NEG) Urine RBC 6-10/HPF (0-2) Urine WBC 0/HPF (0-4) Urine Squamous Epithelial Cells Few/LPF Urine Bacteria 0/HPF (0-FEW) Review of Systems Review of Systems denies fever, chills denies signs of bleeding denies chest pain or soa Assessment and Plan Assessmemt and Plan ASSESSMENT: - traumatic left hip fracture post fall, s/p ORIF for left hip fx on 05/01 - htn, benign - prostate CA, s/p radiation - acute anemia, expected post surgery, improved with transfusion - mild encephalopathy, post-op, pain and pain meds PLAN: - SNU eval; probable SNU tomorrow if medically stable - Hgb improved 9.4 from 6.8 following transfusion yesterday - repeat daily labs - PTOT - cont wound care - appreciate subspecialist input Problems: Comment Review of Relevant I have reviewed the following items sury (where applicable) has been applied. Labs Laboratory Tests Test 05/03/16 18:30 05/04/16 08:47 05/04/16 16:00 05/05/16 07:30 White Blood Count 5.1x10^3/uL (4.0-11.0) 4.9x10^3/uL (4.0-11.0) 4.9x10^3/uL (4.0-11.0) Red Blood Count 1.93x10^6/uL (4.30-5.70) 2.25x10^6/uL (4.30-5.70) 2.06x10^6/uL (4.30-5.70) Hemoglobin 6.5g/dL (13.0-17.5) 7.5g/dL (13.0-17.5) 6.8g/dL (13.0-17.5) Hematocrit 18.9% (39.0-53.0) 21.7% (39.0-53.0) 20.1% (39.0-53.0) Mean Corpuscular Volume 98fL (79-100) 97fL (79-100) 98fL (79-100) Mean Corpuscular Hemoglobin 34pg (25-35) 34pg (25-35) 33pg (25-35) Mean Corpuscular Hemoglobin Concent 34g/dL (31-37) 35g/dL (31-37) 34g/dL (31-37) Red Cell Distribution Width 14.5% (11.5-14.5) 14.6% (11.5-14.5) 14.6% (11.5-14.5) Platelet Count 71x10^3/uL (140-400) 84x10^3/uL (140-400) 79x10^3/uL (140-400) Neutrophils (%) (Auto) 85% (31-73) 69% (31-73) Lymphocytes (%) (Auto) 6% (24-48) 17% (24-48) Monocytes (%) (Auto) 9% (0-9) 12% (0-9) Eosinophils (%) (Auto) 0% (0-3) 1% (0-3) Basophils (%) (Auto) 0% (0-3) 0% (0-3) Neutrophils # (Auto) 4.3x10^3uL (1.8-7.7) 3.4x10^3uL (1.8-7.7) Lymphocytes # (Auto) 0.3x10^3/uL (1.0-4.8) 0.9x10^3/uL (1.0-4.8) Monocytes # (Auto) 0.5x10^3/uL (0.0-1.1) 0.6x10^3/uL (0.0-1.1) Eosinophils # (Auto) 0.0x10^3/uL (0.0-0.7) 0.1x10^3/uL (0.0-0.7) Basophils # (Auto) 0.0x10^3/uL (0.0-0.2) 0.0x10^3/uL (0.0-0.2) Urine Collection Type Unknown Urine Color Yellow Urine Clarity Clear Urine pH 8.0 Urine Specific [place] 1.010 Urine Protein Negativemg/dL (NEG-TRACE) Urine Glucose (UA) Negativemg/dL (NEG) Urine Ketones (Stick) Negativemg/dL (NEG) Urine Blood Moderate (NEG) Urine Nitrite Negative (NEG) Urine Bilirubin Negative (NEG) Urine Urobilinogen Dipstick 0.2mg/dL (0.2 mg/dL) Urine Leukocyte Esterase Negative (NEG) Urine RBC 6-10/HPF (0-2) Urine WBC 0/HPF (0-4) Urine Squamous Epithelial Cells Few/LPF Urine Bacteria 0/HPF (0-FEW) Test 05/05/16 08:55 White Blood Count 5.0x10^3/uL (4.0-11.0) Red Blood Count 2.87x10^6/uL (4.30-5.70) Hemoglobin 9.4g/dL (13.0-17.5) Hematocrit 27.0% (39.0-53.0) Mean Corpuscular Volume 94fL (79-100) Mean Corpuscular Hemoglobin 33pg (25-35) Mean Corpuscular Hemoglobin Concent 35g/dL (31-37) Red Cell Distribution Width 16.1% (11.5-14.5) Platelet Count 92x10^3/uL (140-400) Laboratory Tests Test 05/04/16 16:00 05/05/16 07:30 05/05/16 08:55 White Blood Count 4.9x10^3/uL (4.0-11.0) 5.0x10^3/uL (4.0-11.0) Red Blood Count 2.06x10^6/uL (4.30-5.70) 2.87x10^6/uL (4.30-5.70) Hemoglobin 6.8g/dL (13.0-17.5) 9.4g/dL (13.0-17.5) Hematocrit 20.1% (39.0-53.0) 27.0% (39.0-53.0) Mean Corpuscular Volume 98fL (79-100) 94fL (79-100) Mean Corpuscular Hemoglobin 33pg (25-35) 33pg (25-35) Mean Corpuscular Hemoglobin Concent 34g/dL (31-37) 35g/dL (31-37) Red Cell Distribution Width 14.6% (11.5-14.5) 16.1% (11.5-14.5) Platelet Count 79x10^3/uL (140-400) 92x10^3/uL (140-400) Urine Collection Type Unknown Urine Color Yellow Urine Clarity Clear Urine pH 8.0 Urine Specific [place] 1.010 Urine Protein Negativemg/dL (NEG-TRACE) Urine Glucose (UA) Negativemg/dL (NEG) Urine Ketones (Stick) Negativemg/dL (NEG) Urine Blood Moderate (NEG) Urine Nitrite Negative (NEG) Urine Bilirubin Negative (NEG) Urine Urobilinogen Dipstick 0.2mg/dL (0.2 mg/dL) Urine Leukocyte Esterase Negative (NEG) Urine RBC 6-10/HPF (0-2) Urine WBC 0/HPF (0-4) Urine Squamous Epithelial Cells Few/LPF Urine Bacteria 0/HPF (0-FEW) Medications Current Medications Fentanyl Citrate (Fentanyl 2ml Vial) 50 mcg PRN Q15MIN PRN IV PAIN GREATER THAN 3/10 Last administered on 05/01/16 18:41; Start 05/01/16 at 18:00; Stop 12/09 at 17:59; Status DC Ondansetron HCl (Zofran) 4 mg 1X ONCE IV Last administered on 05/01/16 18:10; Start 05/01/16 at 18:00; Stop 05/01/16 at 18:01; Status DC Ondansetron HCl (Zofran) 4 mg PRN Q8HRS PRN IV NAUSEA/VOMITING Last administered on 05/01/16 21:04; Start 05/01/16 at 18:15; Stop 05/02/16 at 18:14; Status DC Fentanyl Citrate (Fentanyl 2ml Vial) 50 mcg PRN Q2HR PRN IV PAIN Last administered on 05/02/16 12:12; Start 05/01/16 at 18:15; Stop 05/02/16 at 18:14 ; Status DC Acetaminophen (Tylenol) 650 mg PRN Q4HRS PRN PO FEVER; Start 05/01/16 at 18:15; Stop 05/02/16 at 18:14; Status DC Acetaminophen (Tylenol) 650 mg PRN Q6HRS PRN PO FEVER Last administered on 05/03 22:09; Start 05/01/16 at 18:45 Ondansetron HCl (Zofran) 4 mg PRN Q6HRS PRN IV NAUSEA; Start 05/01/16 at 18:45 Oxycodone/ Acetaminophen 1 tab 1 tab PRN Q6HRS PRN PO PAIN Last administered on 05/03/16 08:52; Start 05/01/16 at 18:45 Propofol (Diprivan) 20 ml @ As Directed STK-MED ONCE IV ; Start 05/01/16 at 19:01 ; Stop 05/01/16 at 19:02; Status DC Lidocaine HCl 100 mg STK-MED ONCE .ROUTE ; Start 05/01/16 at 19:02; Stop 05/01/16 at 19:03; Status DC Phenylephrine HCl 1 mg STK-MED ONCE IV ; Start 05/01/16 at 19:02; Stop 05/01/16 at 19:03; Status DC Ephedrine Sulfate 50 mg STK-MED ONCE IV ; Start 05/01/16 at 19:02; Stop 05/01/16 at 19:03; Status DC Dexamethasone Sodium Phosphate (Decadron) 20 mg STK-MED ONCE .ROUTE ; Start 05/01 at 19:02; Stop 05/01/16 at 19:03; Status DC Ondansetron HCl (Zofran) 4 mg STK-MED ONCE .ROUTE ; Start 05/01/16 at 19:02; Stop 05/01/16 at 19:03; Status DC Ondansetron HCl (Zofran) 4 mg PRN Q6HRS PRN IV Nausea; Start 05/01/16 at 20:30; Stop 05/02/16 at 20:29; Status DC Fentanyl Citrate (Fentanyl 2ml Vial) 25 mcg PRN Q5MIN PRN IV MILD PAIN; Start 05/01/16 at 20:30; Stop 05/02/16 at 20:29; Status DC Fentanyl Citrate (Fentanyl 2ml Vial) 50 mcg PRN Q5MIN PRN IV MODERATE PAIN; Start 05/01/16 at 20:30; Stop 05/02/16 at 20:29; Status DC Morphine Sulfate 1 mg 1 mg PRN Q10MIN PRN IV SEVERE PAIN Last administered on 00:08; Start 05/01/16 at 20:30; Stop 05/02/16 at 20:29; Status DC Lactated Ringer's (Iv Lactated Ringers) 1,000 ml @ 0 mls/hr Q0M IV ; Start 05/01 at 20:20; Stop 05/02/16 at 08:19; Status DC Lidocaine HCl 2 ml 1X PRN PRN ID IV START; Start 05/01/16 at 20:30; Stop at 20:29; Status DC Hydromorphone HCl (Dilaudid) 0.5 mg PRN Q10MIN PRN IV SEV PAIN,Second choice Last administered on 05/01/16 23:59; Start 05/01/16 at 20:30; Stop 05/02/16 at 20 :29; Status DC Prochlorperazine Edisylate (Compazine) 5 mg PACU PRN PRN IV NAUSEA Last administered on 05/01/16 23:40; Start 05/01/16 at 20:30; Stop 05/02/16 at 20:29; Status DC Zolpidem Tartrate 5 mg 5 mg PRN QHS PRN PO INSOMNIA; Start 05/01/16 at 21:15; Stop 05/01/16 at 21:20; Status DC Cefazolin Sodium/ Dextrose (Ancef 2gm Premix) 50 ml @ As Directed STK-MED ONCE IV ; Start 05/01/16 at 21:30; Stop 05/01/16 at 21:31; Status DC Fentanyl Citrate (Fentanyl 2ml Vial) 100 mcg STK-MED ONCE .ROUTE ; Start at 21:37; Stop 05/01/16 at 21:38; Status DC Fentanyl Citrate (Fentanyl 2ml Vial) 100 mcg STK-MED ONCE .ROUTE ; Start at 22:25; Stop 05/01/16 at 22:26; Status DC Sevoflurane (Ultane) 60 ml STK-MED ONCE IH ; Start 05/01/16 at 22:50; Stop at 22:51; Status DC Aspirin (Children'S Aspirin) 81 mg DAILY PO Last administered on 05/04/16 09: 38; Start 05/02/16 at 09:00 Atorvastatin Calcium (Lipitor) 40 mg HS PO Last administered on 05/04/16 22:11 ; Start 05/02/16 at 21:00 Escitalopram Oxalate (Lexapro) 10 mg DAILY PO Last administered on 05/05/16 08 :43; Start 05/02/16 at 09:00 Lisinopril (Prinivil) 20 mg DAILY PO Last administered on 05/03/16 08:54; Start 05/02/16 at 09:00 Polyethylene Glycol (miraLAX PACKET) 17 gm DAILY PO Last administered on 08:43; Start 05/02/16 at 09:00 Sennosides (Senna) 8.6 mg DAILY PO Last administered on 05/05/16 08:43; Start 05/02/16 at 09:00 Acetaminophen/ Hydrocodone Bitart (Lortab 5/325) 1 tab PRN Q4HRS PRN PO PAIN Last administered on 05/05/16 08:50; Start 05/02/16 at 08:00 Ferrous Sulfate (Feosol) 325 mg DAILYWBKFT PO Last administered on 05/05/16 08 :43; Start 05/02/16 at 09:00 Fentanyl Citrate 50 mcg 50 mcg PRN Q2HR PRN IV PAIN SEV Last administered on 09:02; Start 05/02/16 at 20:45 Sodium Chloride (Iv Sodium Chloride 0.9% 1000ml Bag) 1,000 ml @ 125 mls/hr CONT PRN IV I/O Last administered on 05/03/16 03:49; Start 05/02/16 at 20:45; Stop 05/03/16 at 19:35; Status DC Potassium Chloride (Klor-Con) 40 meq 1X ONCE PO Last administered on 16:09; Start 05/03/16 at 10:00; Stop 05/03/16 at 10:01; Status DC Vitamin D (Vitamin D3) 5,000 unit DAILY PO Last administered on 05/05/16 08:43 ; Start 05/03/16 at 14:00 Diphenhydramine HCl (Benadryl) 25 mg 1X ONCE IV ; Start 05/03/16 at 15:30; Stop 05/03/16 at 15:30; Status DC Hydrocortisone Sodium Succinate (Solu-Cortef) 100 mg 1X ONCE IV Last administered on 05/03/16 15:43; Start 05/03/16 at 15:30; Stop 05/03/16 at 15:31 ; Status DC Diphenhydramine HCl (Benadryl) 25 mg 1X ONCE PO Last administered on 15:42; Start 05/03/16 at 15:30; Stop 05/03/16 at 15:31; Status DC Acetaminophen (Tylenol) 650 mg 1X ONCE PO Last administered on 05/03/16 15:42 ; Start 05/03/16 at 15:30; Stop 05/03/16 at 15:31; Status DC Diphenhydramine HCl (Benadryl) 25 mg 1X ONCE IVP Last administered on 22:08; Start 05/03/16 at 22:00; Stop 05/03/16 at 22:01; Status DC Cyanocobalamin (Vitamin B-12) 1,000 mcg 1X ONCE IM Last administered on 13:28; Start 05/04/16 at 11:00; Stop 05/04/16 at 11:01; Status DC Vitamin B Complex (Folbic Tablet) 1 tab DAILY PO Last administered on 08:43; Start 05/04/16 at 10:15 Multivitamins (Thera M Plus) 1 tab DAILY PO Last administered on 05/05/16 08: 43; Start 05/04/16 at 11:00 Methylnaltrexone [place] (Relistor) 12 mg 1X ONCE SQ Last administered on 05/04 14:52; Start 05/04/16 at 14:45; Stop 05/04/16 at 14:46; Status DC Magnesium Citrate (Citroma) 296 ml PRN 1X PRN PO CONSTIPATION Last administered on 05/05/16 08:43; Start 05/04/16 at 14:15 Pantoprazole Sodium (Protonix) 40 mg DAILYAC PO Last administered on 05/05/16t 08:43; Start 05/04/16 at 15:00 Active Scripts Active Reported Betimol (Timolol) 5 Ml Drops 5 Ml OP Simbrinza 1%-0.2% Eye Drops (Brinzolamide/Brimonid Tart) 8 Ml Drops.susp 8 Ml OP Senokot (Sennosides) 8.6 Mg Tablet 8.6 Mg PO Miralax (Polyethylene Glycol 3350) 17 Gm Powd.pack 1 Pkt PO DAILY Lisinopril 20 Mg Tablet 20 Mg AD DAILY Escitalopram Oxalate 10 Mg Tablet 10 Mg PO DAILY Atorvastatin Calcium 40 Mg Tablet 40 Mg PO HS Myrbetriq (Mirabegron) 50 Mg Tab.er.24h 50 Mg PO Aspirin 81 Mg Tab.chew 81 Mg PO Vitals/I & O Vital Sign - Last 24 Hours 05/04/16 05/04/16 05/04/16 05/04/16 15:00 19:00 20:00 22:34 Temp 97.5 98.4 98.2 97.5 98.4 98.2 Pulse 75 78 74 Resp 18 B/P 115/61 131/64 114/63 Pulse Ox 95 91 O2 Delivery Room Air Room Air Nasal Cannula O2 Flow Rate 2.0 05/04/16 05/04/16 05/04/16 05/05/16 22:49 23:35 23:49 00:37 Temp 98.6 98.8 98.4 98.6 98.6 98.8 98.4 98.6 Pulse 68 73 71 60 Resp 18 20 B/P 112/65 141/74 113/61 127/73 Pulse Ox 97 O2 Delivery Room Air 05/05/16 05/05/16 05/05/16 05/05/16 01:55 02:10 03:10 04:10 Temp 98.7 99.2 97.9 97.5 98.7 99.2 97.9 97.5 Pulse 67 69 60 56 Resp 20 18 16 16 B/P 156/87 175/86 137/81 142/77 05/05/16 05/05/16 07:00 11:00 Temp 96.4 98.8 96.4 98.8 Pulse 67 75 Resp 16 18 B/P 174/92 186/112 Pulse Ox 94 96 O2 Delivery Room Air Room Air Intake and Output 05/04/16 05/04/16 05/05/16 15:00 23:00 07:00 Intake Total 300 ml Balance 300 ml DAX CASTILLO III DO May 05, 2016 11:50
--- NOTE | 2016-05-05 11:53 | PDOC ---
Subjective: Subjective: Onc f/u- Cytopenias, h/o recurrent prostate ca s/p XRT/ Lupron, recent hip fx Pt's delirium much better this AM per family. Pt with pain at hip but better. No SOB, CP, bruising. Objective: Vital Signs: Vital Signs Date Time Temp Pulse Resp B/P Pulse Ox O2 Delivery O2 Flow Rate FiO2 05/05/16 11:41 75 186/112 05/05/16 11:00 98.8 18 96 Room Air 98.8 05/04/16 20:00 2.0 Physical Exam: General: Alert, Oriented X3, Cooperative, No acute distress Lungs: Other (no resp distress) Psych/Mental Status: Mental status NL, Mood NL, Other (cognition much better) Skin: Other (pallor present) Labs/Imaging: Hapto 120 Labs 05/01- Hgb 11.5 --> acute drop to 6.8 --> 9.4 after transfusion overnight Plt 05/01 166 --> 80 --> 97 B12, folate, SPEP pending Assessment/Plan A/P: 85 yo M with: 1. Acute anemia, hgb near normal on 05/01, not stable after transfusion overnight 2. Acute thrombocytopenia, normal on 05/01 3. 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 Wooten 4. Recent hip fracture, mechanical, s/p repair 05/02 5. Delirium- Improved today Suspect acute cytopenias likely related to post-op course as near normal 05/01, not atypical for advanced age with decreased marrow reserves with recent pelvic RT as well. Plan: - F/u SPEP, B12, folate - Periodic CBC. Suspect counts will return to normal with time. CASSY DONIS DO May 05, 2016 11:53
--- NOTE | 2016-05-05 12:08 | PDOC ---
Subjective: Subjective: Feels constipated. Objective: Objective: Family concerned w/ constipation. Per RN - received Relistor yesterday, still no BM. Vital Signs: Vital Signs Date Time Temp Pulse Resp B/P Pulse Ox O2 Delivery O2 Flow Rate FiO2 05/05/16 11:41 75 186/112 05/05/16 11:00 98.8 18 96 Room Air 98.8 05/04/16 20:00 2.0 Labs: Laboratory Tests Test 05/04/16 16:00 05/05/16 07:30 05/05/16 08:55 White Blood Count 4.9x10^3/uL 5.0x10^3/uL Red Blood Count 2.06x10^6/uL 2.87x10^6/uL Hemoglobin 6.8g/dL 9.4g/dL Hematocrit 20.1% 27.0% Mean Corpuscular Volume 98fL 94fL Mean Corpuscular Hemoglobin 33pg 33pg Mean Corpuscular Hemoglobin Concent 34g/dL 35g/dL Red Cell Distribution Width 14.6% 16.1% Platelet Count 79x10^3/uL 92x10^3/uL Urine Collection Type Unknown Urine Color Yellow Urine Clarity Clear Urine pH 8.0 Urine Specific [place] 1.010 Urine Protein Negativemg/dL Urine Glucose (UA) Negativemg/dL Urine Ketones (Stick) Negativemg/dL Urine Blood Moderate Urine Nitrite Negative Urine Bilirubin Negative Urine Urobilinogen Dipstick 0.2mg/dL Urine Leukocyte Esterase Negative Urine RBC 6-10/HPF Urine WBC 0/HPF Urine Squamous Epithelial Cells Few/LPF Urine Bacteria 0/HPF PE: GEN: NAD, up to chair LUNGS: CTAB HEART: RRR ABD: NABS, non-tender NEURO/PSYCH: appropriate A/P: Anemia -Hgb improved, no obvious GI bleeding -recent fracture/surgery -reports negative colonoscopy last year Chronic constipation -received Relistor 05/04, seems takes Miralax and MoM at home fairly regularly -- Family concerned. Will discuss w/ Dr. Portillo. ?Jimmie Brown - I don't believe Movantik on formulary here ROBINSON BONILLA May 05, 2016 12:08
[2016-05-05] MEDS ORDERED: METHYLNALTREXONE 12 MG/0.6 ML VIAL. SQ ONE (14:15)
[2016-05-05 14:43] LABS: HEMATOCRIT 20.1 % (39.0-53.0)
--- NOTE | 2016-05-05 14:58 | PDOC ---
PROGRESS NOTES Subjective Subjective Problems overnight: Patient overall feels better less confused today no current complaints got up and around better with physical therapy today Objective Vital Signs Vital Signs Date Time Temp Pulse Resp B/P Pulse Ox O2 Delivery O2 Flow Rate FiO2 05/05/16 11:41 75 186/112 05/05/16 11:00 98.8 18 96 Room Air 98.8 05/04/16 20:00 2.0 Physical Exam On exam hip incisions with minimal bloody drainage thigh is still swollen but compartment soft distal neurovascular status intact leg lengths equal. No tenderness on weightbearing to an extended extremity Labs Laboratory Tests Test 05/03/16 18:30 05/04/16 08:47 05/04/16 16:00 05/05/16 07:30 White Blood Count 5.1x10^3/uL (4.0-11.0) 4.9x10^3/uL (4.0-11.0) 4.9x10^3/uL (4.0-11.0) Red Blood Count 1.93x10^6/uL (4.30-5.70) 2.25x10^6/uL (4.30-5.70) 2.06x10^6/uL (4.30-5.70) Hemoglobin 6.5g/dL (13.0-17.5) 7.5g/dL (13.0-17.5) 6.8g/dL (13.0-17.5) Hematocrit 18.9% (39.0-53.0) 21.7% (39.0-53.0) 20.1% (39.0-53.0) Mean Corpuscular Volume 98fL (79-100) 97fL (79-100) 98fL (79-100) Mean Corpuscular Hemoglobin 34pg (25-35) 34pg (25-35) 33pg (25-35) Mean Corpuscular Hemoglobin Concent 34g/dL (31-37) 35g/dL (31-37) 34g/dL (31-37) Red Cell Distribution Width 14.5% (11.5-14.5) 14.6% (11.5-14.5) 14.6% (11.5-14.5) Platelet Count 71x10^3/uL (140-400) 84x10^3/uL (140-400) 79x10^3/uL (140-400) Neutrophils (%) (Auto) 85% (31-73) 69% (31-73) Lymphocytes (%) (Auto) 6% (24-48) 17% (24-48) Monocytes (%) (Auto) 9% (0-9) 12% (0-9) Eosinophils (%) (Auto) 0% (0-3) 1% (0-3) Basophils (%) (Auto) 0% (0-3) 0% (0-3) Neutrophils # (Auto) 4.3x10^3uL (1.8-7.7) 3.4x10^3uL (1.8-7.7) Lymphocytes # (Auto) 0.3x10^3/uL (1.0-4.8) 0.9x10^3/uL (1.0-4.8) Monocytes # (Auto) 0.5x10^3/uL (0.0-1.1) 0.6x10^3/uL (0.0-1.1) Eosinophils # (Auto) 0.0x10^3/uL (0.0-0.7) 0.1x10^3/uL (0.0-0.7) Basophils # (Auto) 0.0x10^3/uL (0.0-0.2) 0.0x10^3/uL (0.0-0.2) Urine Collection Type Unknown Urine Color Yellow Urine Clarity Clear Urine pH 8.0 Urine Specific [place] 1.010 Urine Protein Negativemg/dL (NEG-TRACE) Urine Glucose (UA) Negativemg/dL (NEG) Urine Ketones (Stick) Negativemg/dL (NEG) Urine Blood Moderate (NEG) Urine Nitrite Negative (NEG) Urine Bilirubin Negative (NEG) Urine Urobilinogen Dipstick 0.2mg/dL (0.2 mg/dL) Urine Leukocyte Esterase Negative (NEG) Urine RBC 6-10/HPF (0-2) Urine WBC 0/HPF (0-4) Urine Squamous Epithelial Cells Few/LPF Urine Bacteria 0/HPF (0-FEW) Test 05/05/16 08:55 White Blood Count 5.0x10^3/uL (4.0-11.0) Red Blood Count 2.87x10^6/uL (4.30-5.70) Hemoglobin 9.4g/dL (13.0-17.5) Hematocrit 27.0% (39.0-53.0) Mean Corpuscular Volume 94fL (79-100) Mean Corpuscular Hemoglobin 33pg (25-35) Mean Corpuscular Hemoglobin Concent 35g/dL (31-37) Red Cell Distribution Width 16.1% (11.5-14.5) Platelet Count 92x10^3/uL (140-400) Laboratory Tests Test 05/04/16 16:00 05/05/16 07:30 05/05/16 08:55 White Blood Count 4.9x10^3/uL (4.0-11.0) 5.0x10^3/uL (4.0-11.0) Red Blood Count 2.06x10^6/uL (4.30-5.70) 2.87x10^6/uL (4.30-5.70) Hemoglobin 6.8g/dL (13.0-17.5) 9.4g/dL (13.0-17.5) Hematocrit 20.1% (39.0-53.0) 27.0% (39.0-53.0) Mean Corpuscular Volume 98fL (79-100) 94fL (79-100) Mean Corpuscular Hemoglobin 33pg (25-35) 33pg (25-35) Mean Corpuscular Hemoglobin Concent 34g/dL (31-37) 35g/dL (31-37) Red Cell Distribution Width 14.6% (11.5-14.5) 16.1% (11.5-14.5) Platelet Count 79x10^3/uL (140-400) 92x10^3/uL (140-400) Urine Collection Type Unknown Urine Color Yellow Urine Clarity Clear Urine pH 8.0 Urine Specific [place] 1.010 Urine Protein Negativemg/dL (NEG-TRACE) Urine Glucose (UA) Negativemg/dL (NEG) Urine Ketones (Stick) Negativemg/dL (NEG) Urine Blood Moderate (NEG) Urine Nitrite Negative (NEG) Urine Bilirubin Negative (NEG) Urine Urobilinogen Dipstick 0.2mg/dL (0.2 mg/dL) Urine Leukocyte Esterase Negative (NEG) Urine RBC 6-10/HPF (0-2) Urine WBC 0/HPF (0-4) Urine Squamous Epithelial Cells Few/LPF Urine Bacteria 0/HPF (0-FEW) Assessment Assessment POD# [], S/P [ORIF left hip fracture] Problems: Plan Plan of Care Hemoglobin now appears more stable at 9.4 Continue mobilize with physical therapy okay for 50% weightbearing Placement Follow-up orthopedics clinic 10-14 days CRISTOBAL THOMPSON MD May 05, 2016 14:58
[2016-05-05] MEDS: METHYLNALTREXONE 12 MG/0.6 ML VIAL. SQ SCH (15:00)
[2016-05-05 16:22] LABS: NEG OBC FOB NEG; POS OBC FOB POS
[2016-05-05] MEDS: ATORVASTATIN CALCIUM 40 MG TABLET. PO SCH (21:21)
[2016-05-05] MEDS: FENTANYL PF 100 MCG/2 ML VIAL. IV PRN (21:22)
[2016-05-06 03:48] VITALS: BP 174/80
[2016-05-06] MEDS: OXYCODONE/APAP 5/325 TABLET. PO PRN ×3 (06:10→22:07)
[2016-05-06] MEDS: PANTOPRAZOLE 40 MG TABLET. PO SCH (06:10)
[2016-05-06 06:52] LABS: BASO % 1 % (0-3); EOS % 2 % (0-3); HEMATOCRIT 27.6 % (39.0-53.0); HEMOGLOBIN 9.6 g/dL (13.0-17.5); LYMPH # 0.7 x10^3/uL (1.0-4.8); LYMPH % 14 % (24-48); MEAN CORPUSCULAR HEMOGLOBIN 33 pg (25-35); MEAN CORPUSCULAR HGB CONC 35 g/dL (31-37); MEAN CORPUSCULAR VOLUME 94 fL (79-100); MONO % 15 % (0-9); NEUT % 68 % (31-73); PLATELET COUNT 114 x10^3/uL (140-400); RED BLOOD COUNT 2.93 x10^6/uL (4.30-5.70); RED CELL DISTRIBUTION WIDTH 15.4 % (11.5-14.5); WHITE BLOOD COUNT 5.2 x10^3/uL (4.0-11.0)
[2016-05-06 07:11] LABS: CALCIUM 8.5 mg/dL (8.5-10.1); CREATININE 0.8 mg/dL (0.7-1.3); GFR 92.3; POTASSIUM 3.4 mmol/L (3.5-5.1)
[2016-05-06 07:45] VITALS: BP 148/84
--- NOTE | 2016-05-06 09:48 | PDOC ---
Subjective: Subjective: Onc f/u- Cytopenias, prostate ca Pt with improved mentation, no more confusion. Still fatigued. Objective: Vital Signs: Vital Signs Date Time Temp Pulse Resp B/P Pulse Ox O2 Delivery O2 Flow Rate FiO2 05/06/16 07:45 98.2 69 18 148/84 95 Room Air 98.2 05/05/16 23:27 3.0 Physical Exam: General: Alert, Oriented X3, Cooperative, No acute distress Lungs: Other (no resp distress) Psych/Mental Status: Mental status NL, Mood NL Labs/Imaging: CBC reviewed- Hgb stable, plt improving Assessment/Plan A/P: 85 yo M with: 1. Acute anemia and thrombocytopenia, labs normal on 05/01, s/p transfusion 05/04- Continue improving. Likely related to post-op course in setting of advanced age and compromised marrow with recent pelvic RT. 2. 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 Wooten 3. Recent hip fracture, mechanical, s/p repair 05/02 4. Delirium- Resolved Plan to f/u with his oncologist Dr. Wooten planned. Expect counts to fully recover with time. CASSY DONIS DO May 06, 2016 09:48
--- NOTE | 2016-05-06 09:56 | PDOC ---
ORTHO PROGRESS NOTES Subjective His pain is doing okay, does ache whenever he tries to move. He tells me he has been able to get up and move around a little bit. Vitals Vital Signs Date Time Temp Pulse Resp B/P Pulse Ox O2 Delivery O2 Flow Rate FiO2 05/06/16 07:45 98.2 69 18 148/84 95 Room Air 98.2 05/05/16 23:27 3.0 Labs Laboratory Tests Test 05/04/16 16:00 05/05/16 07:30 05/05/16 08:55 05/05/16 15:45 White Blood Count 4.9x10^3/uL (4.0-11.0) 5.0x10^3/uL (4.0-11.0) Red Blood Count 2.06x10^6/uL (4.30-5.70) 2.87x10^6/uL (4.30-5.70) Hemoglobin 6.8g/dL (13.0-17.5) 9.4g/dL (13.0-17.5) Hematocrit 20.1% (39.0-53.0) 27.0% (39.0-53.0) Mean Corpuscular Volume 98fL (79-100) 94fL (79-100) Mean Corpuscular Hemoglobin 33pg (25-35) 33pg (25-35) Mean Corpuscular Hemoglobin Concent 34g/dL (31-37) 35g/dL (31-37) Red Cell Distribution Width 14.6% (11.5-14.5) 16.1% (11.5-14.5) Platelet Count 79x10^3/uL (140-400) 92x10^3/uL (140-400) Urine Collection Type Unknown Urine Color Yellow Urine Clarity Clear Urine pH 8.0 Urine Specific Rio 1.010 Urine Protein Negativemg/dL (NEG-TRACE) Urine Glucose (UA) Negativemg/dL (NEG) Urine Ketones (Stick) Negativemg/dL (NEG) Urine Blood Moderate (NEG) Urine Nitrite Negative (NEG) Urine Bilirubin Negative (NEG) Urine Urobilinogen Dipstick 0.2mg/dL (0.2 mg/dL) Urine Leukocyte Esterase Negative (NEG) Urine RBC 6-10/HPF (0-2) Urine WBC 0/HPF (0-4) Urine Squamous Epithelial Cells Few/LPF Urine Bacteria 0/HPF (0-FEW) Stool Occult Blood Negative (NEG) Test 05/06/16 06:35 White Blood Count 5.2x10^3/uL (4.0-11.0) Red Blood Count 2.93x10^6/uL (4.30-5.70) Hemoglobin 9.6g/dL (13.0-17.5) Hematocrit 27.6% (39.0-53.0) Mean Corpuscular Volume 94fL (79-100) Mean Corpuscular Hemoglobin 33pg (25-35) Mean Corpuscular Hemoglobin Concent 35g/dL (31-37) Red Cell Distribution Width 15.4% (11.5-14.5) Platelet Count 114x10^3/uL (140-400) Neutrophils (%) (Auto) 68% (31-73) Lymphocytes (%) (Auto) 14% (24-48) Monocytes (%) (Auto) 15% (0-9) Eosinophils (%) (Auto) 2% (0-3) Basophils (%) (Auto) 1% (0-3) Neutrophils # (Auto) 3.5x10^3uL (1.8-7.7) Lymphocytes # (Auto) 0.7x10^3/uL (1.0-4.8) Monocytes # (Auto) 0.8x10^3/uL (0.0-1.1) Eosinophils # (Auto) 0.1x10^3/uL (0.0-0.7) Basophils # (Auto) 0.0x10^3/uL (0.0-0.2) Sodium Level 142mmol/L (136-145) Potassium Level 3.4mmol/L (3.5-5.1) Chloride Level 105mmol/L (98-107) Carbon Dioxide Level 29mmol/L (21-32) Anion Gap 8 (6-14) Blood Urea Nitrogen 18mg/dL (8-26) Creatinine 0.8mg/dL (0.7-1.3) Estimated GFR (Cockcroft-Gault) 92.3 Glucose Level 116mg/dL (70-99) Calcium Level 8.5mg/dL (8.5-10.1) Laboratory Tests Test 05/05/16 15:45 05/06/16 06:35 Stool Occult Blood Negative (NEG) White Blood Count 5.2x10^3/uL (4.0-11.0) Red Blood Count 2.93x10^6/uL (4.30-5.70) Hemoglobin 9.6g/dL (13.0-17.5) Hematocrit 27.6% (39.0-53.0) Mean Corpuscular Volume 94fL (79-100) Mean Corpuscular Hemoglobin 33pg (25-35) Mean Corpuscular Hemoglobin Concent 35g/dL (31-37) Red Cell Distribution Width 15.4% (11.5-14.5) Platelet Count 114x10^3/uL (140-400) Neutrophils (%) (Auto) 68% (31-73) Lymphocytes (%) (Auto) 14% (24-48) Monocytes (%) (Auto) 15% (0-9) Eosinophils (%) (Auto) 2% (0-3) Basophils (%) (Auto) 1% (0-3) Neutrophils # (Auto) 3.5x10^3uL (1.8-7.7) Lymphocytes # (Auto) 0.7x10^3/uL (1.0-4.8) Monocytes # (Auto) 0.8x10^3/uL (0.0-1.1) Eosinophils # (Auto) 0.1x10^3/uL (0.0-0.7) Basophils # (Auto) 0.0x10^3/uL (0.0-0.2) Sodium Level 142mmol/L (136-145) Potassium Level 3.4mmol/L (3.5-5.1) Chloride Level 105mmol/L (98-107) Carbon Dioxide Level 29mmol/L (21-32) Anion Gap 8 (6-14) Blood Urea Nitrogen 18mg/dL (8-26) Creatinine 0.8mg/dL (0.7-1.3) Estimated GFR (Cockcroft-Gault) 92.3 Glucose Level 116mg/dL (70-99) Calcium Level 8.5mg/dL (8.5-10.1) Notes He is awake and alert, in bed. Answers and asks questions appropriate. Incision is covered with a dressing, small amount of bloody drainage but looks good overall. He can wiggle his toes. Toes are warm. Assessment and Plan He can weight-bear as tolerated. Okay to transfer from my standpoint. He should follow-up with my nurse practitioner Emilee in approximately 10-12 days MINERVA COSTELLO II, MD May 06, 2016 09:56
[2016-05-06] MEDS: CHOLECALCIFEROL (VITAMIN D3) 5,000 UNIT CAPSULE PO SCH (10:17)
[2016-05-06] MEDS: VITAMIN B12,B9,B6 COMPLEX 1 TABLET. PO SCH (10:17)
[2016-05-06] MEDS: SENNOSIDES 8.6 MG TABLET PO SCH (10:17)
[2016-05-06] MEDS: ESCITALOPRAM 10 MG TABLET. PO SCH (10:17)
[2016-05-06] MEDS: ASPIRIN 81 MG TAB.CHEW PO SCH (10:17)
[2016-05-06] MEDS: POLYETHYLENE GLYCOL 3350 17 GM PACKET. PO SCH ×2 (10:18→22:07)
[2016-05-06] MEDS: LISINOPRIL 20 MG TABLET PO SCH (10:18)
[2016-05-06] MEDS: HYDROCODONE/APAP 5/325MG TABLET. PO PRN (10:18)
[2016-05-06] MEDS: FERROUS SULFATE 325 MG TABLET PO SCH (10:18)
[2016-05-06] MEDS: MULTIVITAMIN with MINERAL TABLET. PO SCH (10:18)
[2016-05-06] MEDS: METHYLNALTREXONE 12 MG/0.6 ML VIAL. SQ SCH (10:19)
[2016-05-06 10:44] VITALS: BP 128/77
--- NOTE | 2016-05-06 11:58 | PDOC ---
PROGRESS NOTES Chief Complaint Chief Complaint Fall w/ L hip fx ASSESSMENT AND PLAN: 1. L hip fracture : s/p ORIF on 05/01 2. Pain control: adequate. minimize narcotics: severe constipation 3. Constipation: responded to relistor, i.e. narcotic induced. may need rpt if bowel regimen not sufficient 4. Anemia: acute blood loss with ORIF. good response to PRBC x2 with now stable H/H. cont low dose PO iron. monitor 5. HTN: well controlled on home regimen. continue 6. hypothyroidism: on synthroid 7. mild encephalopathy, post-op, pain and pain meds; resolved 8. Prophylaxis: heparin Vitals Vitals Vital Signs Date Time Temp Pulse Resp B/P Pulse Ox O2 Delivery O2 Flow Rate FiO2 05/06/16 10:44 97.9 69 18 128/77 95 Room Air 97.9 05/05/16 23:27 3.0 Physical Exam General: Alert, Oriented X3, Cooperative, No acute distress Heart: Regular rate Lungs: Clear Abdomen: Soft, No tenderness Extremities: No clubbing, Other (surgical dressings clean, dry, intact) Skin: Other (pallor present) Labs LABS Laboratory Tests Test 05/05/16 15:45 05/06/16 06:35 Stool Occult Blood Negative (NEG) White Blood Count 5.2x10^3/uL (4.0-11.0) Red Blood Count 2.93x10^6/uL (4.30-5.70) Hemoglobin 9.6g/dL (13.0-17.5) Hematocrit 27.6% (39.0-53.0) Mean Corpuscular Volume 94fL (79-100) Mean Corpuscular Hemoglobin 33pg (25-35) Mean Corpuscular Hemoglobin Concent 35g/dL (31-37) Red Cell Distribution Width 15.4% (11.5-14.5) Platelet Count 114x10^3/uL (140-400) Neutrophils (%) (Auto) 68% (31-73) Lymphocytes (%) (Auto) 14% (24-48) Monocytes (%) (Auto) 15% (0-9) Eosinophils (%) (Auto) 2% (0-3) Basophils (%) (Auto) 1% (0-3) Neutrophils # (Auto) 3.5x10^3uL (1.8-7.7) Lymphocytes # (Auto) 0.7x10^3/uL (1.0-4.8) Monocytes # (Auto) 0.8x10^3/uL (0.0-1.1) Eosinophils # (Auto) 0.1x10^3/uL (0.0-0.7) Basophils # (Auto) 0.0x10^3/uL (0.0-0.2) Sodium Level 142mmol/L (136-145) Potassium Level 3.4mmol/L (3.5-5.1) Chloride Level 105mmol/L (98-107) Carbon Dioxide Level 29mmol/L (21-32) Anion Gap 8 (6-14) Blood Urea Nitrogen 18mg/dL (8-26) Creatinine 0.8mg/dL (0.7-1.3) Estimated GFR (Cockcroft-Gault) 92.3 Glucose Level 116mg/dL (70-99) Calcium Level 8.5mg/dL (8.5-10.1) Review of Systems Review of Systems had BM after relistor. hip pain present, but tolerable HARRISON SARAVIA MD May 06, 2016 11:58
--- NOTE | 2016-05-06 12:39 | PDOC ---
Subjective: Subjective: Per pt and - very large stool yesterday, smaller stool today. Objective: Vital Signs: Vital Signs Date Time Temp Pulse Resp B/P Pulse Ox O2 Delivery O2 Flow Rate FiO2 05/06/16 10:44 97.9 69 18 128/77 95 Room Air 97.9 05/05/16 23:27 3.0 Labs: Laboratory Tests Test 05/05/16 15:45 05/06/16 06:35 Stool Occult Blood Negative White Blood Count 5.2x10^3/uL Red Blood Count 2.93x10^6/uL Hemoglobin 9.6g/dL Hematocrit 27.6% Mean Corpuscular Volume 94fL Mean Corpuscular Hemoglobin 33pg Mean Corpuscular Hemoglobin Concent 35g/dL Red Cell Distribution Width 15.4% Platelet Count 114x10^3/uL Neutrophils (%) (Auto) 68% Lymphocytes (%) (Auto) 14% Monocytes (%) (Auto) 15% Eosinophils (%) (Auto) 2% Basophils (%) (Auto) 1% Neutrophils # (Auto) 3.5x10^3uL Lymphocytes # (Auto) 0.7x10^3/uL Monocytes # (Auto) 0.8x10^3/uL Eosinophils # (Auto) 0.1x10^3/uL Basophils # (Auto) 0.0x10^3/uL Sodium Level 142mmol/L Potassium Level 3.4mmol/L Chloride Level 105mmol/L Carbon Dioxide Level 29mmol/L Anion Gap 8 Blood Urea Nitrogen 18mg/dL Creatinine 0.8mg/dL Estimated GFR (Cockcroft-Gault) 92.3 Glucose Level 116mg/dL Calcium Level 8.5mg/dL PE: GEN: NAD, up to chair eating lunch LUNGS: CTAB HEART: RRR ABD: NABS, S/ND/NT NEURO/PSYCH: A & O 3 A/P: Anemia -Hgb improved, no obvious GI bleeding, heme neg stool -recent fracture/surgery -reports normal colonoscopy last year Chronic constipation -relief w/ Relistor (has had 2 doses), also had Mag Citrate -- Will change Relistor to PRN. Still has Miralax ordered. ROBINSON BONILLA May 06, 2016 12:39
[2016-05-06 14:27] LABS: KAPPA LAMBDA RATIO 0.79 (0.26-1.65)
[2016-05-06 15:16] VITALS: BP 126/76
[2016-05-06 19:00] VITALS: BP 160/91
[2016-05-06 19:53] LABS: HEMATOCRIT 26.9 % (39.0-53.0); HEMOGLOBIN 9.2 g/dL (13.0-17.5); RED BLOOD COUNT 2.82 x10^6/uL (4.30-5.70); RED CELL DISTRIBUTION WIDTH 15.4 % (11.5-14.5); WHITE BLOOD COUNT 4.8 x10^3/uL (4.0-11.0)
[2016-05-06] MEDS: ATORVASTATIN CALCIUM 40 MG TABLET. PO SCH (22:07)
[2016-05-06] MEDS: HEPARIN PF for SUB-Q USE 5,000 UNIT/0.5 ML VIAL. SQ SCH (22:16)
[2016-05-06 23:00] VITALS: BP 118/76
[2016-05-07 03:37] VITALS: BP 163/88
[2016-05-07] MEDS: PANTOPRAZOLE 40 MG TABLET. PO SCH (06:21)
[2016-05-07] MEDS: OXYCODONE/APAP 5/325 TABLET. PO PRN (06:21)
[2016-05-07] MEDS: HEPARIN PF for SUB-Q USE 5,000 UNIT/0.5 ML VIAL. SQ SCH (06:26)
[2016-05-07 07:00] VITALS: BP 150/76
[2016-05-07 07:30] LABS: CALCIUM 8.6 mg/dL (8.5-10.1); CREATININE 0.7 mg/dL (0.7-1.3); GFR 107.7; POTASSIUM 3.3 mmol/L (3.5-5.1)
[2016-05-07 08:05] LABS: BASO % 1 % (0-3); EOS % 3 % (0-3); HEMATOCRIT 26.3 % (39.0-53.0); LYMPH # 0.8 x10^3/uL (1.0-4.8); LYMPH % 17 % (24-48); MEAN CORPUSCULAR HEMOGLOBIN 33 pg (25-35); MEAN CORPUSCULAR HGB CONC 34 g/dL (31-37); MEAN CORPUSCULAR VOLUME 95 fL (79-100); MONO % 15 % (0-9); NEUT % 65 % (31-73); PLATELET COUNT 119 x10^3/uL (140-400); RED BLOOD COUNT 2.76 x10^6/uL (4.30-5.70); RED CELL DISTRIBUTION WIDTH 15.3 % (11.5-14.5); WHITE BLOOD COUNT 4.6 x10^3/uL (4.0-11.0)
[2016-05-07] MEDS ORDERED: METHYLNALTREXONE 12 MG/0.6 ML VIAL. SQ PRN (09:00)
[2016-05-07] MEDS: POLYETHYLENE GLYCOL 3350 17 GM PACKET. PO SCH (09:12)
[2016-05-07] MEDS: VITAMIN B12,B9,B6 COMPLEX 1 TABLET. PO SCH (09:13)
[2016-05-07] MEDS: ESCITALOPRAM 10 MG TABLET. PO SCH (09:13)
[2016-05-07] MEDS: HYDROCODONE/APAP 5/325MG TABLET. PO PRN (09:13)
[2016-05-07] MEDS: CHOLECALCIFEROL (VITAMIN D3) 5,000 UNIT CAPSULE PO SCH (09:13)
[2016-05-07] MEDS: LISINOPRIL 20 MG TABLET PO SCH (09:13)
[2016-05-07] MEDS: SENNOSIDES 8.6 MG TABLET PO SCH (09:14)
[2016-05-07] MEDS: ASPIRIN 81 MG TAB.CHEW PO SCH (09:14)
[2016-05-07] MEDS: MULTIVITAMIN with MINERAL TABLET. PO SCH (09:14)
[2016-05-07] MEDS: FERROUS SULFATE 325 MG TABLET PO SCH (09:14)
--- NOTE | 2016-05-07 09:48 | PDOC ---
Subjective: Subjective: Onc f/u- Cytopenias Pt stable, ambulating. Family concerned about hgb with very mild decrease 9.2 -- > 9.0, asked to see pt again this AM. Objective: Vital Signs: Vital Signs Date Time Temp Pulse Resp B/P Pulse Ox O2 Delivery O2 Flow Rate FiO2 05/07/16 09:13 69 150/76 05/07/16 07:00 99.3 18 94 Room Air 99.3 Physical Exam: Extremities: No edema General: Alert, Oriented X3, Cooperative, No acute distress Musculoskeletal: Other (ambulating with PT) Psych/Mental Status: Mental status NL, Mood NL Labs/Imaging: CBC stable, hgb 9.0, plt 117, unchanged Assessment/Plan A/P: 85 yo M with: 1. Acute anemia and thrombocytopenia, labs normal on 05/01, s/p transfusion 05/04- Continue improving. Likely related to post-op course in setting of advanced age and compromised marrow with recent pelvic RT. 2. 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 Wooten 3. Recent hip fracture, mechanical, s/p repair 05/02 Discussed that this was normal lab variation with family, no reason for concern. Plan to f/u with his oncologist Dr. Wooten as planned. Expect counts to fully recover with time. CASSY DONIS DO May 07, 2016 09:48
[2016-05-07] MEDS ORDERED: FERR325T72 PO (09:54)
[2016-05-07] MEDS ORDERED: CYAN1TAB19 PO (09:54)
[2016-05-07] MEDS ORDERED: HYDR-2666 PO (09:54)
[2016-05-07] MEDS ORDERED: HEPA500022 SQ (09:54)
[2016-05-07] MEDS ORDERED: CHOL5000 PO (09:54)
[2016-05-07] MEDS ORDERED: MULT1TAB90 PO (09:54)
[2016-05-07] MEDS ORDERED: POLY17PO5 PO (09:54)
--- NOTE | 2016-05-07 10:46 | PDOC ---
G I PROGRESS NOTE Subjective Feels great. Bowels moving. Physical Exam Lungs clear. RRR Abdomen soft, not distended nor tender. Review of Relevant I have reviewed the following items sury (where applicable) has been applied. Labs Laboratory Tests Test 05/05/16 15:45 05/06/16 06:35 05/06/16 19:48 05/07/16 07:03 Stool Occult Blood Negative (NEG) White Blood Count 5.2x10^3/uL (4.0-11.0) 4.8x10^3/uL (4.0-11.0) 4.6x10^3/uL (4.0-11.0) Red Blood Count 2.93x10^6/uL (4.30-5.70) 2.82x10^6/uL (4.30-5.70) 2.76x10^6/uL (4.30-5.70) Hemoglobin 9.6g/dL (13.0-17.5) 9.2g/dL (13.0-17.5) 9.0g/dL (13.0-17.5) Hematocrit 27.6% (39.0-53.0) 26.9% (39.0-53.0) 26.3% (39.0-53.0) Mean Corpuscular Volume 94fL (79-100) 96fL (79-100) 95fL (79-100) Mean Corpuscular Hemoglobin 33pg (25-35) 33pg (25-35) 33pg (25-35) Mean Corpuscular Hemoglobin Concent 35g/dL (31-37) 34g/dL (31-37) 34g/dL (31-37) Red Cell Distribution Width 15.4% (11.5-14.5) 15.4% (11.5-14.5) 15.3% (11.5-14.5) Platelet Count 114x10^3/uL (140-400) 116x10^3/uL (140-400) 119x10^3/uL (140-400) Neutrophils (%) (Auto) 68% (31-73) 65% (31-73) Lymphocytes (%) (Auto) 14% (24-48) 17% (24-48) Monocytes (%) (Auto) 15% (0-9) 15% (0-9) Eosinophils (%) (Auto) 2% (0-3) 3% (0-3) Basophils (%) (Auto) 1% (0-3) 1% (0-3) Neutrophils # (Auto) 3.5x10^3uL (1.8-7.7) 3.0x10^3uL (1.8-7.7) Lymphocytes # (Auto) 0.7x10^3/uL (1.0-4.8) 0.8x10^3/uL (1.0-4.8) Monocytes # (Auto) 0.8x10^3/uL (0.0-1.1) 0.7x10^3/uL (0.0-1.1) Eosinophils # (Auto) 0.1x10^3/uL (0.0-0.7) 0.1x10^3/uL (0.0-0.7) Basophils # (Auto) 0.0x10^3/uL (0.0-0.2) 0.0x10^3/uL (0.0-0.2) Sodium Level 142mmol/L (136-145) 143mmol/L (136-145) Potassium Level 3.4mmol/L (3.5-5.1) 3.3mmol/L (3.5-5.1) Chloride Level 105mmol/L (98-107) 106mmol/L (98-107) Carbon Dioxide Level 29mmol/L (21-32) 29mmol/L (21-32) Anion Gap 8 (6-14) 8 (6-14) Blood Urea Nitrogen 18mg/dL (8-26) 19mg/dL (8-26) Creatinine 0.8mg/dL (0.7-1.3) 0.7mg/dL (0.7-1.3) Estimated GFR (Cockcroft-Gault) 92.3 107.7 Glucose Level 116mg/dL (70-99) 116mg/dL (70-99) Calcium Level 8.5mg/dL (8.5-10.1) 8.6mg/dL (8.5-10.1) Laboratory Tests Test 05/06/16 19:48 3/15/17 07:03 White Blood Count 4.8x10^3/uL (4.0-11.0) 4.6x10^3/uL (4.0-11.0) Red Blood Count 2.82x10^6/uL (4.30-5.70) 2.76x10^6/uL (4.30-5.70) Hemoglobin 9.2g/dL (13.0-17.5) 9.0g/dL (13.0-17.5) Hematocrit 26.9% (39.0-53.0) 26.3% (39.0-53.0) Mean Corpuscular Volume 96fL (79-100) 95fL (79-100) Mean Corpuscular Hemoglobin 33pg (25-35) 33pg (25-35) Mean Corpuscular Hemoglobin Concent 34g/dL (31-37) 34g/dL (31-37) Red Cell Distribution Width 15.4% (11.5-14.5) 15.3% (11.5-14.5) Platelet Count 116x10^3/uL (140-400) 119x10^3/uL (140-400) Neutrophils (%) (Auto) 65% (31-73) Lymphocytes (%) (Auto) 17% (24-48) Monocytes (%) (Auto) 15% (0-9) Eosinophils (%) (Auto) 3% (0-3) Basophils (%) (Auto) 1% (0-3) Neutrophils # (Auto) 3.0x10^3uL (1.8-7.7) Lymphocytes # (Auto) 0.8x10^3/uL (1.0-4.8) Monocytes # (Auto) 0.7x10^3/uL (0.0-1.1) Eosinophils # (Auto) 0.1x10^3/uL (0.0-0.7) Basophils # (Auto) 0.0x10^3/uL (0.0-0.2) Sodium Level 143mmol/L (136-145) Potassium Level 3.3mmol/L (3.5-5.1) Chloride Level 106mmol/L (98-107) Carbon Dioxide Level 29mmol/L (21-32) Anion Gap 8 (6-14) Blood Urea Nitrogen 19mg/dL (8-26) Creatinine 0.7mg/dL (0.7-1.3) Estimated GFR (Cockcroft-Gault) 107.7 Glucose Level 116mg/dL (70-99) Calcium Level 8.6mg/dL (8.5-10.1) Medications Current Medications Fentanyl Citrate (Fentanyl 2ml Vial) 50 mcg PRN Q15MIN PRN IV PAIN GREATER THAN 310 Last administered on 05/01/16 18:41; Start 05/01/16 at 18:00; Stop 12/09 at 17:59; Status DC Ondansetron HCl (Zofran) 4 mg 1X ONCE IV Last administered on 05/01/16 18:10; Start 05/01/16 at 18:00; Stop 05/01/16 at 18:01; Status DC Ondansetron HCl (Zofran) 4 mg PRN Q8HRS PRN IV NAUSEA/VOMITING Last administered on 05/01/16 21:04; Start 05/01/16 at 18:15; Stop 05/02/16 at 18:14; Status DC Fentanyl Citrate (Fentanyl 2ml Vial) 50 mcg PRN Q2HR PRN IV PAIN Last administered on 05/02/16 12:12; Start 05/01/16 at 18:15; Stop 05/02/16 at 18:14 ; Status DC Acetaminophen (Tylenol) 650 mg PRN Q4HRS PRN PO FEVER; Start 05/01/16 at 18:15; Stop 05/02/16 at 18:14; Status DC Acetaminophen (Tylenol) 650 mg PRN Q6HRS PRN PO FEVER Last administered on 05/03 22:09; Start 05/01/16 at 18:45 Ondansetron HCl (Zofran) 4 mg PRN Q6HRS PRN IV NAUSEA; Start 05/01/16 at 18:45 Oxycodone/ Acetaminophen 1 tab 1 tab PRN Q6HRS PRN PO MODERATE - SEVERE PAIN Last administered on 05/07/16 06:21; Start 05/01/16 at 18:45 Propofol (Diprivan) 20 ml @ As Directed STK-MED ONCE IV ; Start 05/01/16 at 19:01 ; Stop 05/01/16 at 19:02; Status DC Lidocaine HCl 100 mg STK-MED ONCE .ROUTE ; Start 05/01/16 at 19:02; Stop 05/01/16 at 19:03; Status DC Phenylephrine HCl 1 mg STK-MED ONCE IV ; Start 05/01/16 at 19:02; Stop 05/01/16 at 19:03; Status DC Ephedrine Sulfate 50 mg STK-MED ONCE IV ; Start 05/01/16 at 19:02; Stop 05/01/16 at 19:03; Status DC Dexamethasone Sodium Phosphate (Decadron) 20 mg STK-MED ONCE .ROUTE ; Start 05/01 at 19:02; Stop 05/01/16 at 19:03; Status DC Ondansetron HCl (Zofran) 4 mg STK-MED ONCE .ROUTE ; Start 05/01/16 at 19:02; Stop 05/01/16 at 19:03; Status DC Ondansetron HCl (Zofran) 4 mg PRN Q6HRS PRN IV Nausea; Start 05/01/16 at 20:30; Stop 05/02/16 at 20:29; Status DC Fentanyl Citrate (Fentanyl 2ml Vial) 25 mcg PRN Q5MIN PRN IV MILD PAIN; Start 05/01/16 at 20:30; Stop 05/02/16 at 20:29; Status DC Fentanyl Citrate (Fentanyl 2ml Vial) 50 mcg PRN Q5MIN PRN IV MODERATE PAIN; Start 05/01/16 at 20:30; Stop 05/02/16 at 20:29; Status DC Morphine Sulfate 1 mg 1 mg PRN Q10MIN PRN IV SEVERE PAIN Last administered on t 00:08; Start 05/01/16 at 20:30; Stop 05/02/16 at 20:29; Status DC Lactated Ringer's (Iv Lactated Ringers) 1,000 ml @ 0 mls/hr Q0M IV ; Start 05/01 at 20:20; Stop 05/02/16 at 08:19; Status DC Lidocaine HCl 2 ml 1X PRN PRN ID IV START; Start 05/01/16 at 20:30; Stop at 20:29; Status DC Hydromorphone HCl (Dilaudid) 0.5 mg PRN Q10MIN PRN IV SEV PAIN,Second choice Last administered on 05/01/16 23:59; Start 05/01/16 at 20:30; Stop 05/02/16 at 20 :29; Status DC Prochlorperazine Edisylate (Compazine) 5 mg PACU PRN PRN IV NAUSEA Last administered on 05/01/16 23:40; Start 05/01/16 at 20:30; Stop 05/02/16 at 20:29; Status DC Zolpidem Tartrate 5 mg 5 mg PRN QHS PRN PO INSOMNIA; Start 05/01/16 at 21:15; Stop 05/01/16 at 21:20; Status DC Cefazolin Sodium/ Dextrose (Ancef 2gm Premix) 50 ml @ As Directed STK-MED ONCE IV ; Start 05/01/16 at 21:30; Stop 05/01/16 at 21:31; Status DC Fentanyl Citrate (Fentanyl 2ml Vial) 100 mcg STK-MED ONCE .ROUTE ; Start at 21:37; Stop 05/01/16 at 21:38; Status DC Fentanyl Citrate (Fentanyl 2ml Vial) 100 mcg STK-MED ONCE .ROUTE ; Start at 22:25; Stop 05/01/16 at 22:26; Status DC Sevoflurane (Ultane) 60 ml STK-MED ONCE IH ; Start 05/01/16 at 22:50; Stop at 22:51; Status DC Aspirin (Children'S Aspirin) 81 mg DAILY PO Last administered on 05/07/16 09: 14; Start 05/02/16 at 09:00 Atorvastatin Calcium (Lipitor) 40 mg HS PO Last administered on 05/06/16 22:07 ; Start 05/02/16 at 21:00 Escitalopram Oxalate (Lexapro) 10 mg DAILY PO Last administered on 05/07/16 09 :13; Start 05/02/16 at 09:00 Lisinopril (Prinivil) 20 mg DAILY PO Last administered on 05/07/16 09:13; Start 05/02/16 at 09:00 Polyethylene Glycol (miraLAX PACKET) 17 gm DAILY PO Last administered on 10:18; Start 05/02/16 at 09:00; Stop 05/06/16 at 16:19; Status DC Sennosides (Senna) 8.6 mg DAILY PO Last administered on 05/07/16 09:14; Start 05/02/16 at 09:00 Acetaminophen/ Hydrocodone Bitart (Lortab 5/325) 1 tab PRN Q4HRS PRN PO MILD PAIN Last administered on 05/07/16 09:13; Start 05/02/16 at 08:00 Ferrous Sulfate (Feosol) 325 mg DAILYWBKFT PO Last administered on 05/07/16 09 :14; Start 05/02/16 at 09:00 Fentanyl Citrate 50 mcg 50 mcg PRN Q2HR PRN IV PAIN SEV Last administered on 21:22; Start 05/02/16 at 20:45; Stop 05/06/16 at 16:14; Status DC Sodium Chloride (Iv Sodium Chloride 0.9% 1000ml Bag) 1,000 ml @ 125 mls/hr CONT PRN IV I/O Last administered on 05/03/16 03:49; Start 05/02/16 at 20:45; Stop 05/03/16 at 19:35; Status DC Potassium Chloride (Klor-Con) 40 meq 1X ONCE PO Last administered on 16:09; Start 05/03/16 at 10:00; Stop 05/03/16 at 10:01; Status DC Vitamin D (Vitamin D3) 5,000 unit DAILY PO Last administered on 05/07/16 09:13 ; Start 05/03/16 at 14:00 Diphenhydramine HCl (Benadryl) 25 mg 1X ONCE IV ; Start 05/03/16 at 15:30; Stop 05/03/16 at 15:30; Status DC Hydrocortisone Sodium Succinate (Solu-Cortef) 100 mg 1X ONCE IV Last administered on 05/03/16 15:43; Start 05/03/16 at 15:30; Stop 05/03/16 at 15:31 ; Status DC Diphenhydramine HCl (Benadryl) 25 mg 1X ONCE PO Last administered on 15:42; Start 05/03/16 at 15:30; Stop 05/03/16 at 15:31; Status DC Acetaminophen (Tylenol) 650 mg 1X ONCE PO Last administered on 05/03/16 15:42 ; Start 05/03/16 at 15:30; Stop 05/03/16 at 15:31; Status DC Diphenhydramine HCl (Benadryl) 25 mg 1X ONCE IVP Last administered on 22:08; Start 05/03/16 at 22:00; Stop 05/03/16 at 22:01; Status DC Cyanocobalamin (Vitamin B-12) 1,000 mcg 1X ONCE IM Last administered on 13:28; Start 05/04/16 at 11:00; Stop 05/04/16 at 11:01; Status DC Vitamin B Complex (Folbic Tablet) 1 tab DAILY PO Last administered on 09:13; Start 05/04/16 at 10:15 Multivitamins (Thera M Plus) 1 tab DAILY PO Last administered on 05/07/16 09: 14; Start 05/04/16 at 11:00 Methylnaltrexone Rio (Relistor) 12 mg 1X ONCE SQ Last administered on 05/04 14:52; Start 05/04/16 at 14:45; Stop 05/04/16 at 14:46; Status DC Magnesium Citrate (Citroma) 296 ml PRN 1X PRN PO CONSTIPATION Last administered on 05/05/16 08:43; Start 05/04/16 at 14:15 Pantoprazole Sodium (Protonix) 40 mg DAILYAC PO Last administered on 05/07/16 06:21; Start 05/04/16 at 15:00 Methylnaltrexone Rio (Relistor) 12 mg 1X ONCE SQ ; Start 05/05/16 at 14:15 ; Stop 05/05/16 at 14:15; Status DC Methylnaltrexone Rio (Relistor) 12 mg DAILY SQ Last administered on 10:19; Start 05/05/16 at 15:00; Stop 05/06/16 at 12:39; Status DC Methylnaltrexone Rio (Relistor) 12 mg PRN DAILY PRN SQ constipation; Start 05/07/16 at 09:00 Polyethylene Glycol (miraLAX PACKET) 17 gm BID PO Last administered on 09:12; Start 05/06/16 at 21:00 Heparin Sodium (Porcine) 5,000 unit Q8HRS SQ Last administered on 05/07/16t 06: 26; Start 05/06/16 at 22:00 Active Scripts Active Hydrocodone-Apap 5-325 (Hydrocodone Bit/Acetaminophen) 1 Each Tablet 1-2 Tab PO PRN Q4HRS PRN Heparin Sod 5,000 Unit/ 0.5 Ml (Heparin Sodium,Porcine/Pf) 5,000 Unit/0.5 Ml Vial 5,000 Unit SQ Q8HRS 14 Days Reported Betimol (Timolol) 5 Ml Drops 5 Ml OP Simbrinza 1%-0.2% Eye Drops (Brinzolamide/Brimonid Tart) 8 Ml Drops.susp 8 Ml OP Senokot (Sennosides) 8.6 Mg Tablet 8.6 Mg PO Miralax (Polyethylene Glycol 3350) 17 Gm Powd.pack 1 Pkt PO DAILY Lisinopril 20 Mg Tablet 20 Mg AD DAILY Escitalopram Oxalate 10 Mg Tablet 10 Mg PO DAILY Atorvastatin Calcium 40 Mg Tablet 40 Mg PO HS Myrbetriq (Mirabegron) 50 Mg Tab.er.24h 50 Mg PO Aspirin 81 Mg Tab.chew 81 Mg PO Vitals/I & O Vital Sign - Last 24 Hours 05/06/16 05/06/16 05/06/16 05/06/16 15:16 19:00 20:20 22:07 Temp 97.7 98.7 97.7 98.7 Pulse 70 65 Resp 18 18 20 B/P 126/76 160/91 Pulse Ox 95 98 98 O2 Delivery Room Air Room Air Room Air Room Air 05/06/16 05/06/16 05/07/16 05/07/16 23:00 23:07 03:37 06:21 Temp 98.8 97.9 98.8 97.9 Pulse 74 65 Resp 18 20 18 20 B/P 118/76 163/88 Pulse Ox 94 94 98 98 O2 Delivery Room Air Room Air Room Air Room Air 05/07/16 05/07/16 07:00 09:13 Temp 99.3 99.3 Pulse 69 69 Resp 18 B/P 150/76 150/76 Pulse Ox 94 O2 Delivery Room Air Intake and Output 05/06/16 05/06/16 05/07/16 15:00 23:00 07:00 Intake Total 120 ml 240 ml Balance 120 ml 240 ml Problem List Problems Medical Problems: (1) Closed left femoral fracture Status: Acute (2) Femur fracture, left Status: Acute Assessment Chronic constipation with OIC overlay. Plan of Care: Continue current Tx, Mgmt Plan of Care Note If goes home on narcs, would give Movantik or oral Relistor as long as on the narcotics. ERIK OREILLY MD May 07, 2016 10:46
[2016-05-07 11:00] VITALS: BP 123/75
--- NOTE | 2016-05-07 12:53 | PDOC ---
PROGRESS NOTES Chief Complaint Chief Complaint Fall w/ L hip fx ASSESSMENT AND PLAN: 1. L hip fracture : s/p ORIF on 05/01 2. Pain control: adequate. minimize narcotics: severe constipation 3. Constipation: responded to relistor, i.e. narcotic induced. may need rpt if bowel regimen not sufficient 4. Anemia: acute blood loss with ORIF. good response to PRBC x2 with now stable H/H. cont low dose PO iron. monitor 5. HTN: well controlled on home regimen. continue 6. hypothyroidism: on synthroid 7. mild encephalopathy, post-op, pain and pain meds; resolved 8. Prophylaxis: heparin History of Present Illness History of Present Illness Patient was sitting in the chair at the time of evaluation, family was present in the room. Pt. was in no acute distress, his discharge to [facility] discussed with him and family and they showed an agreement to it. Vitals Vitals Vital Signs Date Time Temp Pulse Resp B/P Pulse Ox O2 Delivery O2 Flow Rate FiO2 05/07/16 11:00 98.1 68 18 123/75 98 Room Air 98.1 Physical Exam General: Alert, Oriented X3, Cooperative, No acute distress Heart: Regular rate Lungs: Clear Abdomen: Soft, No tenderness Extremities: No edema Skin: Other (pallor present, incision intact on left hip, dressing is dry) Labs LABS Laboratory Tests Test 05/06/16 19:48 05/07/16 07:03 White Blood Count 4.8x10^3/uL (4.0-11.0) 4.6x10^3/uL (4.0-11.0) Red Blood Count 2.82x10^6/uL (4.30-5.70) 2.76x10^6/uL (4.30-5.70) Hemoglobin 9.2g/dL (13.0-17.5) 9.0g/dL (13.0-17.5) Hematocrit 26.9% (39.0-53.0) 26.3% (39.0-53.0) Mean Corpuscular Volume 96fL (79-100) 95fL (79-100) Mean Corpuscular Hemoglobin 33pg (25-35) 33pg (25-35) Mean Corpuscular Hemoglobin Concent 34g/dL (31-37) 34g/dL (31-37) Red Cell Distribution Width 15.4% (11.5-14.5) 15.3% (11.5-14.5) Platelet Count 116x10^3/uL (140-400) 119x10^3/uL (140-400) Neutrophils (%) (Auto) 65% (31-73) Lymphocytes (%) (Auto) 17% (24-48) Monocytes (%) (Auto) 15% (0-9) Eosinophils (%) (Auto) 3% (0-3) Basophils (%) (Auto) 1% (0-3) Neutrophils # (Auto) 3.0x10^3uL (1.8-7.7) Lymphocytes # (Auto) 0.8x10^3/uL (1.0-4.8) Monocytes # (Auto) 0.7x10^3/uL (0.0-1.1) Eosinophils # (Auto) 0.1x10^3/uL (0.0-0.7) Basophils # (Auto) 0.0x10^3/uL (0.0-0.2) Sodium Level 143mmol/L (136-145) Potassium Level 3.3mmol/L (3.5-5.1) Chloride Level 106mmol/L (98-107) Carbon Dioxide Level 29mmol/L (21-32) Anion Gap 8 (6-14) Blood Urea Nitrogen 19mg/dL (8-26) Creatinine 0.7mg/dL (0.7-1.3) Estimated GFR (Cockcroft-Gault) 107.7 Glucose Level 116mg/dL (70-99) Calcium Level 8.6mg/dL (8.5-10.1) Review of Systems Review of Systems Denies fever, chills Denies SOB, CP Pain is under control with prn pain meds Ambulate with PT Assessment and Plan Assessmemt and Plan ASSESSMENT: 1. L hip fracture : s/p ORIF on 05/01 2. Pain control: adequate. minimize narcotics: severe constipation 3. Constipation: responded to relistor, i.e. narcotic induced. may need rpt if bowel regimen not sufficient 4. Anemia: acute blood loss with ORIF. good response to PRBC x2 with now stable H/H. cont low dose PO iron. monitor 5. HTN: well controlled on home regimen. continue 6. hypothyroidism: on synthroid 7. mild encephalopathy, post-op, pain and pain meds; resolved 8. Prophylaxis: heparin Plan: - Probable discharge today to [facility] - KCL 40 meq PO ordered - Continue prn pain meds - continue care per floor protocol - appreciate subspecialities inputs and recommendations - Plan of care discussed with family, pt., and RN Problems Medical Problems: (1) Closed left femoral fracture Status: Acute (2) Femur fracture, left Status: Acute Problems: Comment Review of Relevant I have reviewed the following items sury (where applicable) has been applied. Labs Laboratory Tests Test 05/05/16 15:45 05/06/16 06:35 05/06/16 19:48 05/07/16 07:03 Stool Occult Blood Negative (NEG) White Blood Count 5.2x10^3/uL (4.0-11.0) 4.8x10^3/uL (4.0-11.0) 4.6x10^3/uL (4.0-11.0) Red Blood Count 2.93x10^6/uL (4.30-5.70) 2.82x10^6/uL (4.30-5.70) 2.76x10^6/uL (4.30-5.70) Hemoglobin 9.6g/dL (13.0-17.5) 9.2g/dL (13.0-17.5) 9.0g/dL (13.0-17.5) Hematocrit 27.6% (39.0-53.0) 26.9% (39.0-53.0) 26.3% (39.0-53.0) Mean Corpuscular Volume 94fL (79-100) 96fL (79-100) 95fL (79-100) Mean Corpuscular Hemoglobin 33pg (25-35) 33pg (25-35) 33pg (25-35) Mean Corpuscular Hemoglobin Concent 35g/dL (31-37) 34g/dL (31-37) 34g/dL (31-37) Red Cell Distribution Width 15.4% (11.5-14.5) 15.4% (11.5-14.5) 15.3% (11.5-14.5) Platelet Count 114x10^3/uL (140-400) 116x10^3/uL (140-400) 119x10^3/uL (140-400) Neutrophils (%) (Auto) 68% (31-73) 65% (31-73) Lymphocytes (%) (Auto) 14% (24-48) 17% (24-48) Monocytes (%) (Auto) 15% (0-9) 15% (0-9) Eosinophils (%) (Auto) 2% (0-3) 3% (0-3) Basophils (%) (Auto) 1% (0-3) 1% (0-3) Neutrophils # (Auto) 3.5x10^3uL (1.8-7.7) 3.0x10^3uL (1.8-7.7) Lymphocytes # (Auto) 0.7x10^3/uL (1.0-4.8) 0.8x10^3/uL (1.0-4.8) Monocytes # (Auto) 0.8x10^3/uL (0.0-1.1) 0.7x10^3/uL (0.0-1.1) Eosinophils # (Auto) 0.1x10^3/uL (0.0-0.7) 0.1x10^3/uL (0.0-0.7) Basophils # (Auto) 0.0x10^3/uL (0.0-0.2) 0.0x10^3/uL (0.0-0.2) Sodium Level 142mmol/L (136-145) 143mmol/L (136-145) Potassium Level 3.4mmol/L (3.5-5.1) 3.3mmol/L (3.5-5.1) Chloride Level 105mmol/L (98-107) 106mmol/L (98-107) Carbon Dioxide Level 29mmol/L (21-32) 29mmol/L (21-32) Anion Gap 8 (6-14) 8 (6-14) Blood Urea Nitrogen 18mg/dL (8-26) 19mg/dL (8-26) Creatinine 0.8mg/dL (0.7-1.3) 0.7mg/dL (0.7-1.3) Estimated GFR (Cockcroft-Gault) 92.3 107.7 Glucose Level 116mg/dL (70-99) 116mg/dL (70-99) Calcium Level 8.5mg/dL (8.5-10.1) 8.6mg/dL (8.5-10.1) Laboratory Tests Test 05/06/16 19:48 05/07/16 07:03 White Blood Count 4.8x10^3/uL (4.0-11.0) 4.6x10^3/uL (4.0-11.0) Red Blood Count 2.82x10^6/uL (4.30-5.70) 2.76x10^6/uL (4.30-5.70) Hemoglobin 9.2g/dL (13.0-17.5) 9.0g/dL (13.0-17.5) Hematocrit 26.9% (39.0-53.0) 26.3% (39.0-53.0) Mean Corpuscular Volume 96fL (79-100) 95fL (79-100) Mean Corpuscular Hemoglobin 33pg (25-35) 33pg (25-35) Mean Corpuscular Hemoglobin Concent 34g/dL (31-37) 34g/dL (31-37) Red Cell Distribution Width 15.4% (11.5-14.5) 15.3% (11.5-14.5) Platelet Count 116x10^3/uL (140-400) 119x10^3/uL (140-400) Neutrophils (%) (Auto) 65% (31-73) Lymphocytes (%) (Auto) 17% (24-48) Monocytes (%) (Auto) 15% (0-9) Eosinophils (%) (Auto) 3% (0-3) Basophils (%) (Auto) 1% (0-3) Neutrophils # (Auto) 3.0x10^3uL (1.8-7.7) Lymphocytes # (Auto) 0.8x10^3/uL (1.0-4.8) Monocytes # (Auto) 0.7x10^3/uL (0.0-1.1) Eosinophils # (Auto) 0.1x10^3/uL (0.0-0.7) Basophils # (Auto) 0.0x10^3/uL (0.0-0.2) Sodium Level 143mmol/L (136-145) Potassium Level 3.3mmol/L (3.5-5.1) Chloride Level 106mmol/L (98-107) Carbon Dioxide Level 29mmol/L (21-32) Anion Gap 8 (6-14) Blood Urea Nitrogen 19mg/dL (8-26) Creatinine 0.7mg/dL (0.7-1.3) Estimated GFR (Cockcroft-Gault) 107.7 Glucose Level 116mg/dL (70-99) Calcium Level 8.6mg/dL (8.5-10.1) Medications Current Medications Fentanyl Citrate (Fentanyl 2ml Vial) 50 mcg PRN Q15MIN PRN IV PAIN GREATER THAN 3/10 Last administered on 05/01/16 18:41; Start 05/01/16 at 18:00; Stop 12/09 at 17:59; Status DC Ondansetron HCl (Zofran) 4 mg 1X ONCE IV Last administered on 05/01/16 18:10; Start 05/01/16 at 18:00; Stop 05/01/16 at 18:01; Status DC Ondansetron HCl (Zofran) 4 mg PRN Q8HRS PRN IV NAUSEA/VOMITING Last administered on 05/01/16 21:04; Start 05/01/16 at 18:15; Stop 05/02/16 at 18:14; Status DC Fentanyl Citrate (Fentanyl 2ml Vial) 50 mcg PRN Q2HR PRN IV PAIN Last administered on 05/02/16 12:12; Start 05/01/16 at 18:15; Stop 05/02/16 at 18:14 ; Status DC Acetaminophen (Tylenol) 650 mg PRN Q4HRS PRN PO FEVER; Start 05/01/16 at 18:15; Stop 05/02/16 at 18:14; Status DC Acetaminophen (Tylenol) 650 mg PRN Q6HRS PRN PO FEVER Last administered on 05/03 22:09; Start 05/01/16 at 18:45 Ondansetron HCl (Zofran) 4 mg PRN Q6HRS PRN IV NAUSEA; Start 05/01/16 at 18:45 Oxycodone/ Acetaminophen 1 tab 1 tab PRN Q6HRS PRN PO MODERATE - SEVERE PAIN Last administered on 05/07/16t 06:21; Start 05/01/16 at 18:45 Propofol (Diprivan) 20 ml @ As Directed STK-MED ONCE IV ; Start 05/01/16 at 19:01 ; Stop 05/01/16 at 19:02; Status DC Lidocaine HCl 100 mg STK-MED ONCE .ROUTE ; Start 05/01/16 at 19:02; Stop 05/01/16 at 19:03; Status DC Phenylephrine HCl 1 mg STK-MED ONCE IV ; Start 05/01/16 at 19:02; Stop 05/01/16 at 19:03; Status DC Ephedrine Sulfate 50 mg STK-MED ONCE IV ; Start 05/01/16 at 19:02; Stop 05/01/16 at 19:03; Status DC Dexamethasone Sodium Phosphate (Decadron) 20 mg STK-MED ONCE .ROUTE ; Start 05/01 at 19:02; Stop 05/01/16 at 19:03; Status DC Ondansetron HCl (Zofran) 4 mg STK-MED ONCE .ROUTE ; Start 05/01/16 at 19:02; Stop 05/01/16 at 19:03; Status DC Ondansetron HCl (Zofran) 4 mg PRN Q6HRS PRN IV Nausea; Start 05/01/16 at 20:30; Stop 05/02/16 at 20:29; Status DC Fentanyl Citrate (Fentanyl 2ml Vial) 25 mcg PRN Q5MIN PRN IV MILD PAIN; Start 05/01/16 at 20:30; Stop 05/02/16 at 20:29; Status DC Fentanyl Citrate (Fentanyl 2ml Vial) 50 mcg PRN Q5MIN PRN IV MODERATE PAIN; Start 05/01/16 at 20:30; Stop 05/02/16 at 20:29; Status DC Morphine Sulfate 1 mg 1 mg PRN Q10MIN PRN IV SEVERE PAIN Last administered on 00:08; Start 05/01/16 at 20:30; Stop 05/02/16 at 20:29; Status DC Lactated Ringer's (Iv Lactated Ringers) 1,000 ml @ 0 mls/hr Q0M IV ; Start 05/01 at 20:20; Stop 05/02/16 at 08:19; Status DC Lidocaine HCl 2 ml 1X PRN PRN ID IV START; Start 05/01/16 at 20:30; Stop at 20:29; Status DC Hydromorphone HCl (Dilaudid) 0.5 mg PRN Q10MIN PRN IV SEV PAIN,Second choice Last administered on 05/01/16 23:59; Start 05/01/16 at 20:30; Stop 05/02/16 at 20 :29; Status DC Prochlorperazine Edisylate (Compazine) 5 mg PACU PRN PRN IV NAUSEA Last administered on 05/01/16 23:40; Start 05/01/16 at 20:30; Stop 05/02/16 at 20:29; Status DC Zolpidem Tartrate 5 mg 5 mg PRN QHS PRN PO INSOMNIA; Start 05/01/16 at 21:15; Stop 05/01/16 at 21:20; Status DC Cefazolin Sodium/ Dextrose (Ancef 2gm Premix) 50 ml @ As Directed STK-MED ONCE IV ; Start 05/01/16 at 21:30; Stop 05/01/16 at 21:31; Status DC Fentanyl Citrate (Fentanyl 2ml Vial) 100 mcg STK-MED ONCE .ROUTE ; Start at 21:37; Stop 05/01/16 at 21:38; Status DC Fentanyl Citrate (Fentanyl 2ml Vial) 100 mcg STK-MED ONCE .ROUTE ; Start at 22:25; Stop 05/01/16 at 22:26; Status DC Sevoflurane (Ultane) 60 ml STK-MED ONCE IH ; Start 05/01/16 at 22:50; Stop at 22:51; Status DC Aspirin (Children'S Aspirin) 81 mg DAILY PO Last administered on 05/07/16 09: 14; Start 05/02/16 at 09:00 Atorvastatin Calcium (Lipitor) 40 mg HS PO Last administered on 05/06/16 22:07 ; Start 05/02/16 at 21:00 Escitalopram Oxalate (Lexapro) 10 mg DAILY PO Last administered on 05/07/16 09 :13; Start 05/02/16 at 09:00 Lisinopril (Prinivil) 20 mg DAILY PO Last administered on 05/07/16 09:13; Start 05/02/16 at 09:00 Polyethylene Glycol (miraLAX PACKET) 17 gm DAILY PO Last administered on 10:18; Start 05/02/16 at 09:00; Stop 05/06/16 at 16:19; Status DC Sennosides (Senna) 8.6 mg DAILY PO Last administered on 05/07/16 09:14; Start 05/02/16 at 09:00 Acetaminophen/ Hydrocodone Bitart (Lortab 5/325) 1 tab PRN Q4HRS PRN PO MILD PAIN Last administered on 05/07/16 09:13; Start 05/02/16 at 08:00 Ferrous Sulfate (Feosol) 325 mg DAILYWBKFT PO Last administered on 05/07/16 09 :14; Start 05/02/16 at 09:00 Fentanyl Citrate 50 mcg 50 mcg PRN Q2HR PRN IV PAIN SEV Last administered on 21:22; Start 05/02/16 at 20:45; Stop 05/06/16 at 16:14; Status DC Sodium Chloride (Iv Sodium Chloride 0.9% 1000ml Bag) 1,000 ml @ 125 mls/hr CONT PRN IV I/O Last administered on 05/03/16 03:49; Start 05/02/16 at 20:45; Stop 05/03/16 at 19:35; Status DC Potassium Chloride (Klor-Con) 40 meq 1X ONCE PO Last administered on 16:09; Start 05/03/16 at 10:00; Stop 05/03/16 at 10:01; Status DC Vitamin D (Vitamin D3) 5,000 unit DAILY PO Last administered on 05/07/16 09:13 ; Start 05/03/16 at 14:00 Diphenhydramine HCl (Benadryl) 25 mg 1X ONCE IV ; Start 05/03/16 at 15:30; Stop 05/03/16 at 15:30; Status DC Hydrocortisone Sodium Succinate (Solu-Cortef) 100 mg 1X ONCE IV Last administered on 05/03/16 15:43; Start 05/03/16 at 15:30; Stop 05/03/16 at 15:31 ; Status DC Diphenhydramine HCl (Benadryl) 25 mg 1X ONCE PO Last administered on 15:42; Start 05/03/16 at 15:30; Stop 05/03/16 at 15:31; Status DC Acetaminophen (Tylenol) 650 mg 1X ONCE PO Last administered on 05/03/16 15:42 ; Start 05/03/16 at 15:30; Stop 05/03/16 at 15:31; Status DC Diphenhydramine HCl (Benadryl) 25 mg 1X ONCE IVP Last administered on 22:08; Start 05/03/16 at 22:00; Stop 05/03/16 at 22:01; Status DC Cyanocobalamin (Vitamin B-12) 1,000 mcg 1X ONCE IM Last administered on 13:28; Start 05/04/16 at 11:00; Stop 05/04/16 at 11:01; Status DC Vitamin B Complex (Folbic Tablet) 1 tab DAILY PO Last administered on 09:13; Start 05/04/16 at 10:15 Multivitamins (Thera M Plus) 1 tab DAILY PO Last administered on 05/07/16 09: 14; Start 05/04/16 at 11:00 Methylnaltrexone Loris (Relistor) 12 mg 1X ONCE SQ Last administered on 05/04 14:52; Start 05/04/16 at 14:45; Stop 05/04/16 at 14:46; Status DC Magnesium Citrate (Citroma) 296 ml PRN 1X PRN PO CONSTIPATION Last administered on 05/05/16 08:43; Start 05/04/16 at 14:15 Pantoprazole Sodium (Protonix) 40 mg DAILYAC PO Last administered on 05/07/16 06:21; Start 05/04/16 at 15:00 Methylnaltrexone Loris (Relistor) 12 mg 1X ONCE SQ ; Start 05/05/16 at 14:15 ; Stop 05/05/16 at 14:15; Status DC Methylnaltrexone Loris (Relistor) 12 mg DAILY SQ Last administered on 10:19; Start 05/05/16 at 15:00; Stop 05/06/16 at 12:39; Status DC Methylnaltrexone Loris (Relistor) 12 mg PRN DAILY PRN SQ constipation; Start 05/07/16 at 09:00 Polyethylene Glycol (miraLAX PACKET) 17 gm BID PO Last administered on 09:12; Start 05/06/16 at 21:00 Heparin Sodium (Porcine) 5,000 unit Q8HRS SQ Last administered on 05/07/16 06: 26; Start 05/06/16 at 22:00 Active Scripts Active Thera-M Tablet (Multivits,Ca,Minerals/Iron/Fa) 1 Each Tablet 1 Tab PO DAILY Hydrocodone-Apap 5-325 (Hydrocodone Bit/Acetaminophen) 1 Each Tablet 1-2 Tab PO PRN Q4HRS PRN Heparin Sod 5,000 Unit/ 0.5 Ml (Heparin Sodium,Porcine/Pf) 5,000 Unit/0.5 Ml Vial 5,000 Unit SQ Q8HRS 14 Days Feosol (Ferrous Sulfate) 325 Mg Tablet 325 Mg PO DAILYWBKFT Folbic Tablet (Cyanocobalamin/Fa/Pyridoxine) 1 Each Tablet 1 Tab PO DAILY Vitamin D3 (Cholecalciferol (Vitamin D3)) 5,000 Unit Capsule 5,000 Unit PO DAILY Miralax (Polyethylene Glycol 3350) 17 Gm Powd.pack 17 Gm PO BID Reported Betimol (Timolol) 5 Ml Drops 5 Ml OP Simbrinza 1%-0.2% Eye Drops (Brinzolamide/Brimonid Tart) 8 Ml Drops.susp 8 Ml OP Senokot (Sennosides) 8.6 Mg Tablet 8.6 Mg PO Miralax (Polyethylene Glycol 3350) 17 Gm Powd.pack 1 Pkt PO DAILY Lisinopril 20 Mg Tablet 20 Mg AD DAILY Escitalopram Oxalate 10 Mg Tablet 10 Mg PO DAILY Atorvastatin Calcium 40 Mg Tablet 40 Mg PO HS Myrbetriq (Mirabegron) 50 Mg Tab.er.24h 50 Mg PO Aspirin 81 Mg Tab.chew 81 Mg PO Vitals/I & O Vital Sign - Last 24 Hours 05/06/16 05/06/16 05/06/16 05/06/16 15:16 19:00 20:20 22:07 Temp 97.7 98.7 97.7 98.7 Pulse 70 65 Resp 18 18 20 B/P 126/76 160/91 Pulse Ox 95 98 98 O2 Delivery Room Air Room Air Room Air Room Air 05/06/16 05/06/16 05/07/16 05/07/16 23:00 23:07 03:37 06:21 Temp 98.8 97.9 98.8 97.9 Pulse 74 65 Resp 18 20 18 20 B/P 118/76 163/88 Pulse Ox 94 94 98 98 O2 Delivery Room Air Room Air Room Air Room Air 05/07/16 05/07/16 05/07/16 07:00 09:13 11:00 Temp 99.3 98.1 99.3 98.1 Pulse 69 69 68 Resp 18 18 B/P 150/76 150/76 123/75 Pulse Ox 94 98 O2 Delivery Room Air Room Air Intake and Output 05/06/16 05/06/16 05/07/16 15:00 23:00 07:00 Intake Total 120 ml 240 ml Balance 120 ml 240 ml DAX CASTILLO III DO May 07, 2016 12:53
[2016-05-07] MEDS ORDERED: POTASSIUM CHLORIDE 20 MEQ TABLET.ER. PO ONE (13:00)
[2016-05-07 18:12] LABS: ALPHA 1 0.4 g/dL (0.0-0.4); ALPHA 2 0.6 g/dL (0.4-1.0); BETA 0.6 g/dL (0.7-1.3); GAMMA 0.4 g/dL (0.4-1.8); M-SPIKE Not Observed g/dL (Not Observed); PROTEIN TOTAL 4.7 g/dL (6.0-8.5)
[2016-05-07 20:11] LABS: IMMUNOGLOBULIN A 109 mg/dL (61-437); IMMUNOGLOBULIN G 443 mg/dL (700-1600); IMMUNOGLOBULIN M 23 mg/dL (15-143)
--- NOTE | 2016-05-08 04:23 | DS ---
DATE OF DISCHARGE: 05/07/2016 CHIEF COMPLAINT: Left hip fracture status post fall. HOSPITAL COURSE: The patient was admitted after sustaining a fall with fracture at home. He was taken to the OR on the same day of admission for ORIF. He recovered very well from this. He did experience acute anemia secondary to the surgery, which responded to transfusions of packed red blood cells. Complicating his recovery was a recent pelvic radiation for prostate cancer and a probably slow bone marrow recovery. Dr. Melina Simeon from Hematology was following. Other complication was severe constipation, which did respond to relistor given once. He was maintained afterwards on b.i.d. MiraLax. DISCHARGE EXAMINATION: VITAL SIGNS: Show blood pressure of 128/77, heart rate of 69, respiratory rate at 18. He is afebrile. GENERAL: This is a well-nourished 85-year-old gentleman, alert and oriented, in no acute distress. LUNGS: Clear. HEART: Regular rate and rhythm. ABDOMEN: Has positive bowel sounds, soft, nontender. EXTREMITIES: Show no edema, an ORIF incisions on the left hip are well healing. DISCHARGE DISPOSITION: To SNF. DISCHARGE CONDITION: Improved. DISCHARGE DIAGNOSIS: Traumatic left hip fracture, status post ORIF on 05/01. DISCHARGE INSTRUCTIONS: The patient will follow up with Dr. Moran in 10-14 days. He will see his PCP in 2 weeks. greater than 30 minutes were spent in arranging discharge. HARRISON SARAVIA MD DR: UR/nts JOB#: [id number] / [id number] ANTOINETTE Jewell MD
== END 2016-05-07 13:00 | DRG 480 ==
LOC: ER 17:30 → 4 NORTH 18:05
PROVIDERS: ADMIT Internal Medicine; ATTEND Internal Medicine
PROC: 0QS706Z Reposition Left Upper Femur with Intramedullary Internal Fixation Device, Open Approach (ICD-10-PCS; principal; 2016-05-01 22:00)
PROC: 30233N1 Transfusion of Nonautologous Red Blood Cells into Peripheral Vein, Percutaneous Approach (ICD-10-PCS; 2016-05-03)
DX: S72.142A Displaced intertrochanteric fracture of left femur, initial encounter for closed fracture (principal); G93.41 Metabolic encephalopathy; D69.6 Thrombocytopenia, unspecified; I10 Essential (primary) hypertension; D53.9 Nutritional anemia, unspecified; C61 Malignant neoplasm of prostate; Z96.652 Presence of left artificial knee joint; R41.0 Disorientation, unspecified; Z68.25 Body mass index [BMI] 25.0-25.9, adult; D75.89 Other specified diseases of blood and blood-forming organs; W01.0XXA Fall on same level from slipping, tripping and stumbling without subsequent striking against object, initial encounter; Y93.89 Activity, other specified; Y92.89 Other specified places as the place of occurrence of the external cause; Z92.3 Personal history of irradiation; Y99.8 Other external cause status; Z79.818 Long term (current) use of other agents affecting estrogen receptors and estrogen levels; Z85.46 Personal history of malignant neoplasm of prostate
CPT/HCPCS: 36415; 71010; 73502; 76001; 80048; 80076; 81001; 82274; 82306; 82607; 82746; 83010; 83520; 83615; 83735; 84165; 84166; 85027; 85610; 86078; 86334; 86850; 86900; 86901; 86920; 93005; 96374; 96375; 96376; C1713; C1887; J0690; J0780; J1100; J1170; J1200; J1720; J2212; J2270; J2370; J2405; J2704; J3010; J3420; J7030; P9016; Q0163; 97110; 97116; 97530; 97535; 99285-25

== ENCOUNTER → 2016-07-02 | Outpatient (CLI) | payer MEDICARE, OTHER ==
[~2016-07-02] MED LIST: ASPI81TA2 PO; ATOR40TA59 PO; BRIN8DRO OP; CHOL5000 PO; CYAN1TAB19 PO; ESCI10TA PO; FERR325T72 PO; HEPA500022 SQ; HYDR-2666 PO; LISI-334 AD; MIRA50TA PO; MULT1TAB90 PO; POLY17PO29 PO; SENN8.6T99 PO; TIMO5DRO26 OP
--- NOTE | 2016-07-02 16:45 | KCIC ---
PROCEDURE MRI lumbar spine without contrast. HISTORY Degenerative disc disease, prostate cancer, low back pain TECHNIQUE Multiplanar, multi sequential non contrast MR imaging was performed of the lumbar spine. COMPARISON None available at this time FINDINGS There is grade 1 anterior spondylolisthesis at L4-5. Lumbar vertebral body stature is adequate. There is moderate to severe degenerative disc disease L2-3 with associated degenerative endplate change and endplate edema. There is mild to moderate degenerative disc disease L4-5 and minimally at L5-S1, mild disc desiccation at L1-2 and L3-4. Conus terminates at L1. There is mild lumbar levoscoliosis. Not included the axial images, there is shallow posterior protrusion at T12-L1 without significant spinal stenosis. Not included the axial images, there is very shallow posterior bulge at L1-L2 without significant spinal stenosis. L2-3: There is minimal disc osteophyte complex and bulge. There is mild facet degenerative change. Spinal canal is not significantly narrowed. There is mild narrowing of the right neural foramina, left neural foramen overall adequate. L3-4: There is negligible disc osteophyte complex and bulge. Spinal canal is not significantly narrowed. There are posterior and anterior annular tears. There is mild inferior neural foramina compromise greater on the left. L4-5: There is bilateral facet hypertrophic change greater on the left. There is mild buckling of the ligamentum flavum on the left. There is mild partial uncovering of the posterior aspect of the disc due to spondylolisthesis. There is moderate narrowing of the far left lateral recess with contact of the descending left L5 nerve root, mild right lateral recess stenosis. There is moderate narrowing of the left neural foramen, right neural foramen overall adequate. There is a small synovial cyst at the anterolateral margin of the left facet articulation without significant impingement of the exiting left L4 nerve root. L5-S1: Spinal canal is adequate. There is bilateral facet hypertrophic change. There is mild to moderate narrowing of the left neural foramen in part by protrusion with contact ventral undersurface exiting left L5 nerve root, right neural foramen adequate. IMPRESSION 1. There is moderate left lateral recess stenosis at L4-5 with contact descending left L5 nerve root, mild right lateral recess stenosis at this level. 2. There is grade 1 anterior spondylolisthesis at L4-5 at which there is facet degenerative change. 3. There is moderate to severe degenerative disc disease L2-3, endplate edema at this level likely reactive/degenerative in etiology. 4. There is narrowing of the left L4-5 and L5-S1 neural foramina, other minimal narrowing superiorly as described. Electronically signed by: Ryder De Paz MD (July 02, 2016 16:44:41)
== END | disposition home or self-care (01) ==
LOC: KCIC MRI 15:05
PROVIDERS: ATTEND Family Medicine
DX: M51.37 Other intervertebral disc degeneration, lumbosacral region (principal)
CPT/HCPCS: 72148

== ENCOUNTER → 2017-11-06 | Outpatient (CLI) | payer MEDICARE, OTHER ==
[~2017-11-06] MED LIST changes: +ASPI-630 PO; -ASPI81TA2 PO; -ESCI10TA PO; +ESCITALOPRAM OX10 MG PO; -HYDR-2666 PO; +HYDR-2758 PO
--- NOTE | 2017-11-06 17:11 | KCIC ---
EXAMINATION: Magnetic resonance imaging (MRI) of the brain and brainstem without contrast 11/06/2017 3:30 PM HISTORY: Dysphagia. Difficulty swallowing and choking easily. TECHNIQUE: Multiplanar multi-weighted MRI of the brain and brainstem was performed without intravenous contrast using the general brain protocol. COMPARISON: None available. FINDINGS: The scalp and calvarium are normal. The superior sagittal sinus demonstrates normal venous flow. The corpus callosum is normal in shape and signal intensity. The posterior fossa is unremarkable. The pituitary and sella are normal. The brainstem and craniocervical junction are unremarkable. There are T2/FLAIR signal hyperintense foci in the periventricular and subcortical white matter with areas of confluence most suggestive of moderate chronic small vessel ischemic changes. Diffusion weighted images reveal no hyperintensities to suggest acute cerebral infarction. The susceptibility weighted sequences reveal no evidence of acute or chronic hemorrhage. Ventricles, sulci and basal cisterns are prominent compatible with mild generalized cerebral volume loss.. The paranasal sinuses are normal. The visualized portions of the mastoids are unremarkable. Bilateral lens replacement noted. 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 Normal flow voids are demonstrated in the carotid arteries and basilar artery. IMPRESSION: 1. No evidence for acute or subacute ischemia. 2. 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 3. Mild generalized cerebral volume loss. There are T2/FLAIR signal hyperintense foci in the periventricular and subcortical white matter with areas of confluence most suggestive of moderate chronic small vessel ischemic changes. Electronically signed by: Elham Sanchez MD (11/06/2017 5:08 PM) [id number]
== END | disposition home or self-care (01) ==
LOC: KCIC MRI 16:13
PROVIDERS: ATTEND Family Medicine
DX: R13.10 Dysphagia, unspecified (principal); I10 Essential (primary) hypertension; Z85.46 Personal history of malignant neoplasm of prostate; Z96.652 Presence of left artificial knee joint; Z92.3 Personal history of irradiation
CPT/HCPCS: 70551